=== PATIENT | male | born 1935 | race Caucasian/White ===

== ENCOUNTER 2017-04-08 22:18 | Inpatient (IN) | payer MEDICARE, OTHER, SELFPAY ==
[2017-04-08 22:19] VITALS: BP 133/74; PULSE 103; RESP 22; TEMP 35.8; O2SAT 94; BMI 24.5
--- NOTE | 2017-04-08 23:17 | RAD_ITS ---
STUDY: X-RAY CHEST REASON FOR EXAM: Male, 81 years old. Chronic shortness of breath, history of COPD TECHNIQUE: Single AP portable view of the chest. COMPARISON: 01/14/2017. 10/20/2016. FINDINGS: There are superimposed monitor leads. There is hyperinflation of the lungs consistent with chronic obstructive lung disease (COPD). There is no focal parenchymal abnormality. There is no demonstrated pleural abnormality. Normal size heart. Normal mediastinum and kris. Normal visualized pulmonary arteries. There is atherosclerotic calcification of the aortic arch with tortuosity. Obscured thoracic spine. There is degenerative osteoarthritis of the bilateral shoulders. There is no demonstrated abnormality of the visualized soft tissue structures of the upper abdomen. RAD/Chest 1 View (Portable) IMPRESSION: COPD. No acute cardiopulmonary disease. No significant interval change. Electronically Signed: Diane Lee MD at 0:47 EST , Service support ,
[2017-04-08] MEDS: Ipratropium/Albuterol Sulfate 3 ML AMPUL.NEB INHALATION (23:29)
[2017-04-08 23:30] VITALS: PULSE 84; RESP 24
[2017-04-08] MEDS: Albuterol 2.5 MG/3 ML VIAL.NEB. INHALATION ×2 (23:30)
[2017-04-08 23:38] VITALS: O2SAT 93
[2017-04-08] MEDS: MethylPREDNISolone 125 MG/2 ML Vial IV (23:50)
[2017-04-08 23:54] LABS: Absolute Lymphocyte Count 0.93 X10^3/ul (0.83-4.51); Absolute Neutrophil Count 4.3 X10^3/uL (2.0-7.7); Basophil# 0.04 X10^3/uL; Basophil% 0.6 % (0-1); Eosinophil# 0.73 X10^3/uL; Eosinophils% 10.3 % (0-5); Hematocrit 40.6 % (40-54); Hemoglobin 13.1 g/dl (13.0-16.5); Lymphocyte # 0.93 X10^3/ul (4.0); Lymphocyte % 13.2 % (19-41); Mean Corp Hgb Conc 32.3 g/gl (32-36); Mean Corpuscular Hgb 29.3 pg (27.0-32.0); Mean Corpuscular Volume 90.8 fL (80-94); Mean Platelet Vol. 9.2 fl (6.2-12.0); Monocyte# 0.94 X10^3/uL; Monocyte% 13.3 % (0-10); Neutrophil # 4.32 X10^3/uL (2.7-7.7); Neutrophil % 61.2 % (47-70); POSITIVE COUNT NO; POSITIVE DIFFERENTIAL NO; POSITIVE MORPHOLOGY NO; Platelet Count 149 K/mm3 (150-450); RBC Distribution Width CV 14.9 % (11.6-14.6); RBC Distribution Width SD 49.6 fl (35.1-43.9); Red Blood Count 4.47 M/mm3 (4.6-6.2); White Blood Count 7.1 K/mm3 (4.4-11.0)
[2017-04-09] VITALS (14 sets, daily range): BP systolic 145–159; BP diastolic 75–99; PULSE 78–113; RESP 16–24; TEMP 36.4–36.8; O2SAT 93–98; BMI 25.0
[2017-04-09 00:08] LABS: Anion Gap 6 (5-15); BUN 19 mg/dL (7-18); BUN/Creat Ratio 14.7 RATIO (10-20); Calcium,Total 9.1 mg/dL (8.5-10.1); Chloride 105 mmol/L (98-107); Creatinine, Serum 1.29 mg/dL (0.70-1.30); EST Glomerular Filtration Rate 57 mL/min (>60); Est Glom Filt Rate - Afr Amer 69 mL/min (>60); Glucose 152 mg/dL (74-106); Potassium 4.6 mmol/L (3.5-5.1); Sodium Level 140 mmol/L (136-145)
--- NOTE | 2017-04-09 00:16 | ED.DCSUM_ITS ---
- ER Visit Summary Date of Service: 04/09/17 Chief Complaint: Shortness of breath History of Present Illness: The patient is a 81 M with a history of COPD on home oxygen normally on 2 L. He states he has been more short of breath today. He complains of increased dyspnea on exertion increased cough which is nonproductive. He denies sputum. He notes some mild congestion but really no significant URI-like illness. He denies fever rhinorrhea sore throat. He denies vomiting or diarrhea. He denies any pain. Physical Examination: Respiratory rate 22 heart rate 103 pulse ox 94% on 2 L Heart is regular rhythm tachycardia Patient speaking in short 4-5 word sentences he is tachypneic with increased work of breathing he has diminished air exchange and diffuse inspiratory and expiratory wheezing Abdomen soft Test Results: CBC BMP unremarkable. Chest x-ray shows no acute process no focal infiltrate. Emergency Department Course and Treatment: Patient was given IV Solu-Medrol and albuterol and Atrovent aerosols. On reevaluation he is improved but still become short of breath with speaking and even light activity. He desaturated just moving in bed down to about 90%. I do feel he will require admission for COPD exacerbation. Treatment Plan: [] Disposition: Admit Impression: COPD exacerbation This note was generated with [employer] dictation software. It may contain incorrect words, spelling, and punctuation that were not noted in review of the chart prior to signing ED Disposition - Plan for ED Patient: Chief Complaint: Shortness of Breath Referrals: Neha Link MD [Primary Care Provider] -
--- NOTE | 2017-04-09 00:39 | NURSING ---
CALLED [facility] TO SEE IF [facility] HAD ANY OPEN BEDS, NO ONE ANSWERED, LEFT VOICEMAIL
--- NOTE | 2017-04-09 01:01 | HP.PCM_ITS ---
Problem List (1) COPD exacerbation Status: Acute (2) Anxiety disorder Status: Chronic Qualifiers: Anxiety disorder type: unspecified anxiety disorder Qualified Code(s): F41.9 - Anxiety disorder, unspecified (3) BPH (benign prostatic hypertrophy) Status: Chronic Qualifiers: Lower urinary tract symptom presence: unspecified whether lower urinary tract symptoms present Qualified Code(s): N40.0 - Benign prostatic hyperplasia without lower urinary tract symptoms (4) COPD (chronic obstructive pulmonary disease) Status: Chronic Qualifiers: COPD type: unspecified COPD Qualified Code(s): J44.9 - Chronic obstructive pulmonary disease, unspecified (5) Chronic respiratory failure with hypoxia Status: Chronic Comment: 2L NC baseline home usage. (6) Hypertension Status: Chronic Qualifiers: Hypertension type: essential hypertension Qualified Code(s): I10 - Essential (primary) hypertension (7) SOB (shortness of breath) Status: Chronic History of Present Illness Date of Admission: 04/09/17 Chief Complaint: COPD exacerbation The patient is a 81 year old male w/ h/o COPD, chronic respiratory failure, BPH and HTN admitted for COPD exacerbation. He noted worsening cough 10 days ago. The intensity and frequency of cough have increased over the past few days. His SOB is so severe that it interfered with his ADLs. He is unable to get around without severe SOB. He denies any fever. No sick contact. He went to the ED for further workup. Past Medical History Past Medical History (Chronic Problems): Chronic Problems COPD (chronic obstructive pulmonary disease) (Chronic) SOB (shortness of breath) (Chronic) Chronic respiratory failure with hypoxia (Chronic) 2L NC baseline home usage. BPH (benign prostatic hypertrophy) (Chronic) Hypertension (Chronic) Anxiety disorder (Chronic) Allergies No Known Allergies Allergy (Verified 04/08/17 22:22) Home Medications: Ambulatory Orders Medication Instructions Recorded Albuterol Aerosols [Ventolin 2.5 mg INHALATION Q6H PRN PRN 10/20/16 Aerosols] Albuterol IH (ProAir) [Proair Hfa] 2 puff INHALATION Q4H PRN PRN 10/20/16 Aspirin [Aspirin EC] 81 mg PO DAILY 10/20/16 Budesonide Aerosol [Pulmicort 1 mg INHALATION Q12H 10/20/16 Respules] BusPIRone [Buspar] 5 mg PO TID 10/20/16 Dorzolamide HCl [Trusopt] 1 drp OP TID 10/20/16 Finasteride [Proscar] 5 mg PO DAILY 10/20/16 Lactose-Reduced Food [Ensure Plus] 237 ml PO DAILY 10/20/16 Latanoprost 1 drp OP QHS 10/20/16 Metoprolol Tartrate 25 mg PO BID 10/20/16 Mirtazapine 7.5 mg PO QHS 10/20/16 Montelukast [Singulair] 10 mg PO DAILY 10/20/16 Omeprazole 20 mg PO DAILY 10/20/16 Tamsulosin HCl [Flomax] 0.4 mg PO DAILY 10/20/16 Tiotropium [place] [Spiriva 18 MCG] 2 puff INHALATION DAILY 10/20/16 Trazodone HCl [Desyrel] 50 mg PO QHS 10/20/16 Venlafaxine HCl [Effexor Xr] 225 mg PO DAILY 10/20/16 Guaifenesin [Mucinex] 400 mg PO Q4H PRN PRN 01/15/17 Lactose-Reduced Food [Ensure Plus] 237 ml PO BID 01/15/17 food supplement, lactose-reduced ea PO 02/17/17 oral liquid theophylline ER 300 mg 300 mg PO DAILY tab 02/17/17 tablet,extended release,12 hr Cholecalciferol (VIT D3) [Vitamin 4,000 unit PO DAILY 04/09/17 D] Docusate Sodium [Colace] 100 mg PO BID 04/09/17 Surgical History: appendectomy, - - cataracts, 6-7 years ago Psychiatric History: Anxiety, Depression Smoking Status: Unknown if ever smoked - *Family History Maternal History Items: No pertinent history - Mother at 101, - - mother lived to age 101 Paternal History Items: Stroke - CVA in older years, at age 90, No pertinent history , - - father lived to be 90 Offspring History Items: No pertinent history Review of Systems Constitutional: Denies: Chills, Fever, Weight Change HEENT: Denies: Head Aches, Sinus Congestion, Sinus Drainage Cardiovascular: Denies: Chest Pain, Palpitations Respiratory: Reports: Cough, Shortness of breath at rest, Shortness of breath upon exertion, Sputum production, Wheezing Gastrointestinal: Denies: Abdominal Pain, Nausea, Vomiting Genitourinary: Denies: Dysuria Musculoskeletal: Denies: Joint Pain, Joint Tenderness Skin: Denies: Rash, Wounds Neurological: Denies: Numbness, Tingling, Focal weakness Psychiatric: Denies: Anxiety, Depression, Homicidal Ideations, Suicidal Ideations Hematologic/ Lymphatic: Denies: Easy Bruising, Easy Bleeding VTE Information - Inpt Only VTE Present on Admission: No VTE Mechan Device Prophylaxis: SCD's VTE Pharm Prophylaxis ordered?: Yes - Physical Exam General: Alert, Oriented x3, Cooperative HEENT: Atraumatic, PERRLA, EOMI, Normocephalic Neck: Supple, No JVD, Negative Carotid Bruits Lungs: Short of Breath, Tachypneic, Wheezes Cardiovascular: Regular rate, No murmurs Abdomen: Bowel Sounds Present, Soft, Non Tender Extremities: No edema, Capillary Refill Less than 3 Seconds Skin: No rashes, No breakdown Musculoskeletal: No Tenderness to Palpation of Joints or Extremities Neurological: Cranial nerves II-XII grossly intact Psych/Mental Status: Normal Affect, Appropriate Vital Signs Temp Pulse Resp BP Pulse Ox 96.4 F L 78 20 H 154/81 H 93 04/08/17 22:19 04/09/17 00:36 04/09/17 00:36 04/09/17 00:36 04/09/17 00:36 Oxygen Flow Rate 2 Oxygen Delivery Method Nasal Cannula Weight: 60.781 kg Body Mass Index (BMI) 24.5 Laboratory Tests Past 24 Hrs 04/08/17 04/08/17 23:30 23:30 WBC 7.1 RBC 4.47 L Hgb 13.1 Hct 40.6 MCV 90.8 MCH 29.3 MCHC 32.3 RDW 14.9 H RDW Differential 49.6 H Plt Count 149 L MPV 9.2 Immature Gran % (Auto) 1.400 H Neut % (Auto) 61.2 Lymph % (Auto) 13.2 L [place] % (Auto) 13.3 H Eos % (Auto) 10.3 H Baso % (Auto) 0.6 Absolute Neuts (auto) 4.3 Absolute Lymphs (auto) 0.93 Total Counted Not Reportable Sodium 140 Potassium 4.6 Chloride 105 Carbon Dioxide 29.0 Anion Gap 6 BUN 19 H Creatinine 1.29 Estim Creat Clear Calc 34.10 Est GFR (MDRD) Af Amer 69 Est GFR (MDRD) Non-Af 57 L BUN/Creatinine Ratio 14.7 Glucose 152 H Calcium 9.1 Assessment/Plan 81 year old male w/ h/o COPD, chronic respiratory failure, BPH and HTN admitted for COPD exacerbation. 1) COPD exacerbation: Likely viral causing exacerbation. Chest xray negative. Will start oxygen, steroid, bronchodilators, and levaquin. Probably can stop antibiotic if cultures negative. Cultures pending. 2) HTN: Resume home meds. Monitor. 3) BPH: Resume home meds. Monitor. 4) Prophylaxis: Heparin.
[2017-04-09] MEDS: Ipratropium/Albuterol Sulfate 3 ML AMPUL.NEB INHALATION ×6 (03:40→22:26)
[2017-04-09] MEDS: 0.9% Normal Saline 1,000 ML 100 ML IV ×2 (04:47→15:01)
[2017-04-09] MEDS: LORazepam 0.5 MG Tablet PO (05:05)
--- NOTE | 2017-04-09 05:55 | RAD_ITS ---
STUDY: X-RAY CHEST REASON FOR EXAM: Male, 81 years old. Shortness of breath TECHNIQUE: PA and lateral views of the chest. COMPARISON: 2017 chest x-ray FINDINGS: The lungs are hyperinflated and somewhat hyperlucent without evidence of focal consolidation or change since prior study. There is no demonstrated pleural abnormality. Normal size heart. Normal mediastinum and kris. Normal visualized pulmonary arteries. Normal visualized aortic arch and descending thoracic aorta. There is mild dextroscoliosis. Normal visualized ribs, clavicles, and shoulders. There are visualized multiple distended loops of bowel within the upper abdomen. RAD/Chest PA and Lateral IMPRESSION: Stable chest no evidence of acute focal infiltrate could consider chronic obstructive pulmonary disease. Partial Visualization of multiple distended loops of small bowel in the upper abdomen recommend correlation with abdominal symptoms. Electronically Signed: Patricia Melgar MD at 10:43 EST Tel , Service support ,
[2017-04-09 06:29] LABS: ALB/GLOB Ratio 0.9 RATIO (0.9-2.4); AST(SGOT) 19 U/L (15-37); Alanine Aminotransfer ALT/SGPT 29 U/L (16-61); Albumin, Serum 3.4 g/dL (3.2-5.0); Alkaline Phosphatase 52 U/L (45-117); Anion Gap 12 (5-15); BUN 19 mg/dL (7-18); BUN/Creat Ratio 14.2 RATIO (10-20); Calcium,Total 8.8 mg/dL (8.5-10.1); Chloride 102 mmol/L (98-107); Creatinine, Serum 1.34 mg/dL (0.70-1.30); EST Glomerular Filtration Rate 54 mL/min (>60); Est Glom Filt Rate - Afr Amer 66 mL/min (>60); Estimated Creatinine Clearance 32.82 ml/min; Globulin 3.6 g/dL (2.2-4.2); Glucose 248 mg/dL (74-106); Potassium 4.5 mmol/L (3.5-5.1); Sodium Level 138 mmol/L (136-145)
[2017-04-09 06:34] LABS: Absolute Lymphocyte Count 0.37 X10^3/ul (0.83-4.51); Absolute Neutrophil Count 6.6 X10^3/uL (2.0-7.7); Basophil# 0.03 X10^3/uL; Basophil% 0.4 % (0-1); Eosinophil# 0.05 X10^3/uL; Eosinophils% 0.7 % (0-5); Hematocrit 39.5 % (40-54); Hemoglobin 12.8 g/dl (13.0-16.5); Lymphocyte # 0.37 X10^3/ul (4.0); Mean Corp Hgb Conc 32.4 g/gl (32-36); Mean Corpuscular Hgb 29.3 pg (27.0-32.0); Mean Corpuscular Volume 90.4 fL (80-94); Mean Platelet Vol. 9.7 fl (6.2-12.0); Monocyte# 0.14 X10^3/uL; Monocyte% 1.9 % (0-10); Neutrophil # 6.63 X10^3/uL (2.7-7.7); Neutrophil % 89.4 % (47-70); Platelet Count 157 K/mm3 (150-450); RBC Distribution Width CV 14.9 % (11.6-14.6); RBC Distribution Width SD 48.4 fl (35.1-43.9); Red Blood Count 4.37 M/mm3 (4.6-6.2); White Blood Count 7.4 K/mm3 (4.4-11.0)
[2017-04-09 06:38] LABS: Differential Indicated SCAN CRITERIA MET; POSITIVE COUNT YES; POSITIVE DIFFERENTIAL YES; POSITIVE MORPHOLOGY YES
[2017-04-09] MEDS: Budesonide Respules 0.5 MG/2 ML AMPUL.NEB. INHALATION ×2 (07:07→18:38)
--- NOTE | 2017-04-09 08:32 | PCM.PN.HOSP ---
Subjective: The patient is an 81 y/o M w/ PMHx: BPH, Anxiety, BPH, Chronic COPD w/ Chronic Hypoxic Respiratory Failure noted to be advanced stage, non-compliant with therapies per prior report with recent attempted PFTs ~1-2 weeks prior per his report with inability to perform secondary to severity of appearance at that time with ongoing dyspnea, wheezing, progressively worsening over the last 1-2 days. CXR w/ chronic changes, CBC on admission w/ WBC 7.1 without marked L shift. Admitted to CT, maintained on home oxygen therapy, ATC duonebs, PRN albuterol, IV methylprednisolone with prednisone transition once appropriate, HOB, IS parameters, IV Levaquin x 3 day regimen initiated upon admission. Continue home bakari-dur regimen. Given clinical improvement, deferred Pulmonary evaluation/consult, but if worsens, Dr. Latham aware of patient, follows w/ Dr. Shaffer outpatient. Influenza rapid negative. Bld Cx pending per ED. Patient with no acute events since admission per self and per nursing report. He does state that he feels markedly improved since initial presentation to the emergency room but still short of breath with any exertion. He notes that he had a pulmonary function testing assessment approximately 1-2 wks prior and was unable to complete this secondary to the severity of his wheezing, coughing and dyspnea, but was not evaluated at that time with progressive worsening status. Patient denies fevers, chills, nausea, emesis, abdominal pain, chest pain. Objective: Physical Examination: General: awake, alert, oriented x 3 and cooperative, seated upright in bed in no apparent distress. Skin: normal color, turgor, no icterus, cyanosis. HEENT: AT/NC, EOMI, PERRLA, mildly dry MM. Lungs: Diminished BS, > bases, coarse, rhonchorous, diffuse expiratory coarse wheezing. Heart: Regular rate and rhythm; no gallop, rub audible. Abdomen: soft, this habitus, NTTP, ND, normal BS. Extremities: no cyanosis, clubbing, or edema. Neurological: patient awake, alert, oriented x 3; cognitive function intact; pupils equally reactive to light and accomodation; cranial nerves II-XII grossly normal, moving all 4 extremities, no focal deficits, strength severely globally decreased secondary to acute presentation. Psychiatric: affect appears fatigued, no acute evidence of depressive or anxiety feelings. Vitals/I&O's: Vital Signs Temp Pulse Resp BP Pulse Ox 98.2 F 84 20 H 154/77 H 97 04/09/17 01:39 04/09/17 07:07 04/09/17 07:07 04/09/17 01:39 04/09/17 07:07 Oxygen Flow Rate 2 Oxygen Delivery Method Nasal Cannula Weight: 136 lb 7.458 oz Body Mass Index (BMI) 25.0 Intake and Output for Last 24 Hours 04/07/17 04/08/17 04/09/17 23:59 23:59 23:59 Intake Total 709 / 709 Output Total 400 / 400 Balance 309 / 309 Microbiology Past 72 Hours 04/09/17 03:50 Mucosa - Nose Influenza Types A,B Direct FA ([facility]) - Final Laboratory Results 04/09/17 05:25: WBC 7.4, RBC 4.37 L, Hgb 12.8 L, Hct 39.5 L, MCV 90.4, MCH 29.3, MCHC 32.4, RDW 14.9 H, RDW Differential 48.4 H, Plt Count 157, MPV 9.7, Immature Gran % (Auto) 2.600 H, Neut % (Auto) 89.4 H, Lymph % (Auto) 5.0 L, [place] % (Auto) 1.9, Eos % (Auto) 0.7, Baso % (Auto) 0.4, Absolute Neuts (auto) 6.6, Absolute Lymphs (auto) 0.37 L, Total Counted Not Reportable, Differential Comment , Diff Path Review July04/09/17 05:25: Sodium 138, Potassium 4.5, Chloride 102, Carbon Dioxide 24.0, Anion Gap 12, BUN 19 H, Creatinine 1.34 H, Estim Creat Clear Calc 32.82, Est GFR (MDRD) Af Amer 66, Est GFR (MDRD) Non-Af 54 L, BUN/Creatinine Ratio 14.2, Glucose 248 H, Calcium 8.8, Total Bilirubin 0.50, AST 19, ALT 29, Alkaline Phosphatase 52, Total Protein 7.0, Albumin 3.4, Globulin 3.6, Albumin/Globulin Ratio 0.9 Current Medications Albuterol Sulfate (Ventolin Aerosols) 2.5 mg INHALATION Q2H PRN PRN PRN Reason: dyspnea, wheezing Albuterol/Ipratropium (Duoneb) 3 ml INHALATION Q4H.RT [facility] Last Admin: 04/09/17 07:07 Dose: 3 ml Aspirin (Ecotrin) 81 mg PO DAILY [facility] Budesonide (Pulmicort Aerosol) 0.5 mg INHALATION Q12H.RT [facility] Last Admin: 04/09/17 07:07 Dose: 0.5 mg Buspirone HCl (Buspar) 5 mg PO TID [facility] Last Admin: 04/09/17 05:45 Dose: 5 mg Finasteride (Proscar) 5 mg PO DAILY [facility] Guaifenesin (Robitussin) 20 ml PO Q4H PRN PRN PRN Reason: COUGH Heparin Sodium (Porcine) (Heparin Na) 5,000 unit SC Q8 [facility] Last Admin: 04/09/17 05:49 Dose: 5,000 u Sodium Chloride () 1,000 mls @ 100 mls/hr IV .Q10H [facility] Last Admin: 04/09/17 04:47 Dose: 100 mls/hr Sodium Chloride () 250 mls @ 15 mls/hr IV .[id number] PRN PRN Reason: SALINE FLUSH Levofloxacin (Levaquin) 500 mg PO DAILY@0600 [facility] Stop: 04/11/17 06:01 Methylprednisolone (Solu-Medrol) 40 mg IV Q8 [facility] Last Admin: 04/09/17 05:46 Dose: 40 mg Metoprolol Tartrate (Lopressor (Beta Nick)) 25 mg PO BID [facility] Mirtazapine (Remeron) 7.5 mg PO QHS [facility] Montelukast Sodium (Singulair) 10 mg PO DAILY [facility] Pantoprazole Sodium (Protonix) 40 mg PO DAILY [facility] Sodium Chloride () 5 - 30 ml IV UD PRN PRN Reason: SALINE FLUSH Tamsulosin HCl (Flomax) 0.4 mg PO DAILY [facility] Theophylline (Bakari-Dur) 300 mg PO DAILY [facility] Trazodone HCl (Desyrel) 50 mg PO QHS [facility] Venlafaxine HCl (Effexor Xr) 225 mg PO DAILY [facility] Assessment/Plan The patient is an 81 y/o M w/ PMHx: BPH, Anxiety, BPH, Chronic COPD w/ Chronic Hypoxic Respiratory Failure noted to be advanced stage, non-compliant with therapies per prior report with recent attempted PFTs ~1-2 weeks prior per his report with inability to perform secondary to severity of appearance at that time with ongoing dyspnea, wheezing, progressively worsening over the last 1-2 days. (1) Acute on chronic COPD exacerbation w/ Chronic Hypoxic Respiratory Failure: CXR w/ chronic changes, CBC on admission w/ WBC 7.1 without marked L shift. Admitted to CT, maintained on home oxygen therapy, ATC duonebs, PRN albuterol, IV methylprednisolone with prednisone transition once appropriate, HOB, IS parameters, IV Levaquin x 3 day regimen initiated upon admission. Continue home bakari-dur regimen. Given clinical improvement, deferred Pulmonary evaluation/consult, but if worsens, Dr. Latham aware of patient, follows w/ Dr. Shaffer outpatient. Influenza rapid negative. Bld Cx pending per ED. (2) Hypertension: Continue home regimen including metoprolol, although odd choice given underlying severe COPD, consider changing agents, PRN hydralazine. (3) Anxiety and Depression: Maintain on home regimen buspar, remeron, trazodone. (4) BPH: Maintain on home flomax regimen. (5) Chronic Severe Protein-Calorie Malnutrition: Evidenced per habitus, muscle and fat loss secondary, nutrition consulted. (6) Hyperglycemia: Admission BS elevated, assessment prior for DM, secondary to steroid usage. (7) DVT Prophylaxis: SCDs, heparin. Code Visit Billing: Admitted same day, no billing, CODE [id number]
--- NOTE | 2017-04-09 08:42 | PN_ITS ---
Subjective: The patient is an 81 y/o M w/ PMHx: BPH, Anxiety, BPH, Chronic COPD w/ Chronic Hypoxic Respiratory Failure noted to be advanced stage, non-compliant with therapies per prior report with recent attempted PFTs ~1-2 weeks prior per his report with inability to perform secondary to severity of appearance at that time with ongoing dyspnea, wheezing, progressively worsening over the last 1-2 days. CXR w/ chronic changes, CBC on admission w/ WBC 7.1 without marked L shift. Admitted to NH, maintained on home oxygen therapy, ATC duonebs, PRN albuterol, IV methylprednisolone with prednisone transition once appropriate, HOB, IS parameters, IV Levaquin x 3 day regimen initiated upon admission. Continue home bakari-dur regimen. Given clinical improvement, deferred Pulmonary evaluation/consult, but if worsens, Dr. Latham aware of patient, follows w/ Dr. Shaffer outpatient. Influenza rapid negative. Bld Cx pending per ED. Patient with no acute events since admission per self and per nursing report. He does state that he feels markedly improved since initial presentation to the emergency room but still short of breath with any exertion. He notes that he had a pulmonary function testing assessment approximately 1-2 wks prior and was unable to complete this secondary to the severity of his wheezing, coughing and dyspnea, but was not evaluated at that time with progressive worsening status. Patient denies fevers, chills, nausea, emesis, abdominal pain, chest pain. Objective: Physical Examination: General: awake, alert, oriented x 3 and cooperative, seated upright in bed in no apparent distress. Skin: normal color, turgor, no icterus, cyanosis. HEENT: AT/NC, EOMI, PERRLA, mildly dry MM. Lungs: Diminished BS, > bases, coarse, rhonchorous, diffuse expiratory coarse wheezing. Heart: Regular rate and rhythm; no gallop, rub audible. Abdomen: soft, this habitus, NTTP, ND, normal BS. Extremities: no cyanosis, clubbing, or edema. Neurological: patient awake, alert, oriented x 3; cognitive function intact; pupils equally reactive to light and accomodation; cranial nerves II-XII grossly normal, moving all 4 extremities, no focal deficits, strength severely globally decreased secondary to acute presentation. Psychiatric: affect appears fatigued, no acute evidence of depressive or anxiety feelings. Vitals/I&O's: Vital Signs Temp Pulse Resp BP Pulse Ox 98.2 F 84 20 H 154/77 H 97 04/09/17 01:39 04/09/17 07:07 04/09/17 07:07 04/09/17 01:39 04/09/17 07:07 Oxygen Flow Rate 2 Oxygen Delivery Method Nasal Cannula Weight: 136 lb 7.458 oz Body Mass Index (BMI) 25.0 Intake and Output for Last 24 Hours 04/07/17 04/08/17 04/09/17 23:59 23:59 23:59 Intake Total 709 / 709 Output Total 400 / 400 Balance 309 / 309 Microbiology Past 72 Hours 04/09/17 03:50 Mucosa - Nose Influenza Types A,B Direct FA ([facility]) - Final Laboratory Results 04/09/17 05:25: WBC 7.4, RBC 4.37 L, Hgb 12.8 L, Hct 39.5 L, MCV 90.4, MCH 29.3 , MCHC 32.4, RDW 14.9 H, RDW Differential 48.4 H, Plt Count 157, MPV 9.7, Immature Gran % (Auto) 2.600 H, Neut % (Auto) 89.4 H, Lymph % (Auto) 5.0 L, Becker % (Auto) 1.9, Eos % (Auto) 0.7, Baso % (Auto) 0.4, Absolute Neuts (auto) 6.6, Absolute Lymphs (auto) 0.37 L, Total Counted Not Reportable, Differential Comment , Diff Path Review July04/09/17 05:25: Sodium 138, Potassium 4.5, Chloride 102, Carbon Dioxide 24.0, Anion Gap 12, BUN 19 H, Creatinine 1.34 H, Estim Creat Clear Calc 32.82, Est GFR (MDRD) Af Amer 66, Est GFR (MDRD) Non-Af 54 L, BUN/Creatinine Ratio 14.2, Glucose 248 H, Calcium 8.8, Total Bilirubin 0.50, AST 19, ALT 29, Alkaline Phosphatase 52, Total Protein 7.0, Albumin 3.4, Globulin 3.6, Albumin/Globulin Ratio 0.9 Current Medications Albuterol Sulfate (Ventolin Aerosols) 2.5 mg INHALATION Q2H PRN PRN PRN Reason: dyspnea, wheezing Albuterol/Ipratropium (Duoneb) 3 ml INHALATION Q4H.RT [facility] Last Admin: 04/09/17 07:07 Dose: 3 ml Aspirin (Ecotrin) 81 mg PO DAILY [facility] Budesonide (Pulmicort Aerosol) 0.5 mg INHALATION Q12H.RT [facility] Last Admin: 04/09/17 07:07 Dose: 0.5 mg Buspirone HCl (Buspar) 5 mg PO TID [facility] Last Admin: 04/09/17 05:45 Dose: 5 mg Finasteride (Proscar) 5 mg PO DAILY [facility] Guaifenesin (Robitussin) 20 ml PO Q4H PRN PRN PRN Reason: COUGH Heparin Sodium (Porcine) (Heparin Na) 5,000 unit SC Q8 [facility] Last Admin: 04/09/17 05:49 Dose: 5,000 u Sodium Chloride () 1,000 mls @ 100 mls/hr IV .Q10H [facility] Last Admin: 04/09/17 04:47 Dose: 100 mls/hr Sodium Chloride () 250 mls @ 15 mls/hr IV .[id number] PRN PRN Reason: SALINE FLUSH Levofloxacin (Levaquin) 500 mg PO DAILY@0600 [facility] Stop: 04/11/17 06:01 Methylprednisolone (Solu-Medrol) 40 mg IV Q8 [facility] Last Admin: 04/09/17 05:46 Dose: 40 mg Metoprolol Tartrate (Lopressor (Beta Nick)) 25 mg PO BID [facility] Mirtazapine (Remeron) 7.5 mg PO QHS [facility] Montelukast Sodium (Singulair) 10 mg PO DAILY [facility] Pantoprazole Sodium (Protonix) 40 mg PO DAILY [facility] Sodium Chloride () 5 - 30 ml IV UD PRN PRN Reason: SALINE FLUSH Tamsulosin HCl (Flomax) 0.4 mg PO DAILY [facility] Theophylline (Bakari-Dur) 300 mg PO DAILY [facility] Trazodone HCl (Desyrel) 50 mg PO QHS [facility] Venlafaxine HCl (Effexor Xr) 225 mg PO DAILY [facility] Assessment/Plan The patient is an 81 y/o M w/ PMHx: BPH, Anxiety, BPH, Chronic COPD w/ Chronic Hypoxic Respiratory Failure noted to be advanced stage, non-compliant with therapies per prior report with recent attempted PFTs ~1-2 weeks prior per his report with inability to perform secondary to severity of appearance at that time with ongoing dyspnea, wheezing, progressively worsening over the last 1-2 days. (1) Acute on chronic COPD exacerbation w/ Chronic Hypoxic Respiratory Failure: CXR w/ chronic changes, CBC on admission w/ WBC 7.1 without marked L shift. Admitted to NH, maintained on home oxygen therapy, ATC duonebs, PRN albuterol, IV methylprednisolone with prednisone transition once appropriate, HOB, IS parameters, IV Levaquin x 3 day regimen initiated upon admission. Continue home bakari-dur regimen. Given clinical improvement, deferred Pulmonary evaluation/ consult, but if worsens, Dr. Latham aware of patient, follows w/ Dr. Shaffer outpatient. Influenza rapid negative. Bld Cx pending per ED. (2) Hypertension: Continue home regimen including metoprolol, although odd choice given underlying severe COPD, consider changing agents, PRN hydralazine. (3) Anxiety and Depression: Maintain on home regimen buspar, remeron, trazodone. (4) BPH: Maintain on home flomax regimen. (5) Chronic Severe Protein-Calorie Malnutrition: Evidenced per habitus, muscle and fat loss secondary, nutrition consulted. (6) Hyperglycemia: Admission BS elevated, assessment prior for DM, secondary to steroid usage. (7) DVT Prophylaxis: SCDs, heparin. Code Visit Billing: Admitted same day, no billing, CODE [id number]
[2017-04-09] MEDS: 0.9% NaCl Peripheral Flush Adult/Peds IV (08:44)
[2017-04-09] MEDS: Montelukast 10 MG Tablet PO (09:22)
[2017-04-09] MEDS: Aspirin E.C. 81 MG Tablet PO (09:22)
[2017-04-09] MEDS: Tamsulosin HCl 0.4 MG Capsule PO (09:22)
[2017-04-09] MEDS: Finasteride 5 MG Tablet PO (09:22)
[2017-04-09] MEDS: Venlafaxine XR 75 MG Capsule 225 MG PO (09:24)
[2017-04-09] MEDS: Metoprolol Tartrate 25 MG Tablet PO ×2 (09:24→21:46)
[2017-04-09] MEDS: Pantoprazole Sodium 40 MG Tablet PO (09:25)
[2017-04-09] MEDS: guaiFENesin 10 ML UDC (200MG/10ML) 20 ML PO (17:30)
[2017-04-09] MEDS: traZODone 50 MG Tablet PO (21:38)
[2017-04-09] MEDS: Mirtazapine 15 MG Tablet 7.5 MG PO (21:44)
[2017-04-10] VITALS (14 sets, daily range): BP systolic 132–149; BP diastolic 66–80; PULSE 88–108; RESP 18–26; TEMP 36.5–37.1; O2SAT 95–98
[2017-04-10] MEDS: 0.9% Normal Saline 1,000 ML 100 ML IV ×3 (01:05→22:13)
[2017-04-10] MEDS: Ipratropium/Albuterol Sulfate 3 ML AMPUL.NEB INHALATION ×6 (03:26→22:25)
[2017-04-10] MEDS: levoFLOXacin 500 MG Tablet PO (06:02)
[2017-04-10] MEDS: Budesonide Respules 0.5 MG/2 ML AMPUL.NEB. INHALATION ×2 (07:47→18:53)
[2017-04-10] MEDS: Tamsulosin HCl 0.4 MG Capsule PO (08:22)
[2017-04-10] MEDS: Metoprolol Tartrate 25 MG Tablet PO ×2 (08:22→22:14)
[2017-04-10] MEDS: Venlafaxine XR 75 MG Capsule 225 MG PO (08:22)
[2017-04-10] MEDS: Finasteride 5 MG Tablet PO (08:23)
[2017-04-10] MEDS: Aspirin E.C. 81 MG Tablet PO (08:23)
[2017-04-10] MEDS: Pantoprazole Sodium 40 MG Tablet PO (08:23)
[2017-04-10] MEDS: Montelukast 10 MG Tablet PO (08:23)
[2017-04-10] MEDS: Albuterol 2.5 MG/3 ML VIAL.NEB. INHALATION ×2 (09:43→13:23)
[2017-04-10 15:12] LABS: Pathologist Review Reviewed
--- NOTE | 2017-04-10 16:38 | PCM.PN.HOSP ---
Subjective: Patient was seen and examined. Still wheezing, has received multiple breathing treatment, denies any fever or chills. Objective: Physical Examination: General: awake, alert, oriented x 3 and cooperative, up in bed, receiving breathing treatment Skin: normal color, turgor, no icterus, cyanosis. HEENT: Dry oral mucosa Lungs: Air entry bilaterally, diffuse, expiratory coarse wheezes Heart: Regular rate and rhythm; no gallop, rub audible. Abdomen: soft, t nontender, no abnormalities palpated, bowel sounds present and normal Extremities: no cyanosis, clubbing, or edema. Neurological: Grossly intact Psychiatric: Normal Vitals/I&O's: Vital Signs Temp Pulse Resp BP Pulse Ox 97.9 F 103 H 20 H 132/66 H 95 04/10/17 14:49 04/10/17 15:28 04/10/17 15:28 04/10/17 14:49 04/10/17 15:28 Oxygen Flow Rate 3 Oxygen Delivery Method Nasal Cannula Weight: 61.9 kg Body Mass Index (BMI) 25.0 Intake and Output for Last 24 Hours 04/08/17 04/09/17 04/10/17 23:59 23:59 23:59 Intake Total 1838 / 1838 2390 / 2390 Output Total 400 / 400 2670 / 2670 Balance 1438 / 1438 -280 / -280 Microbiology Past 72 Hours 04/09/17 10:35 Urine, Clean Catch Streptococcus pneumoniae Antigen (M - Final 04/09/17 10:35 Urine, Clean Catch Legionella Antigen - Final 04/09/17 03:50 Mucosa - Nose Influenza Types A,B Direct FA ([facility]) - Final Laboratory Results 04/09/17 05:25: Diff Path Review Reviewed Current Medications Albuterol Sulfate (Ventolin Aerosols) 2.5 mg INHALATION Q2H PRN PRN PRN Reason: dyspnea, wheezing Last Admin: 04/10/17 13:23 Dose: 2.5 mg Albuterol/Ipratropium (Duoneb) 3 ml INHALATION Q4H.RT [facility] Last Admin: 04/10/17 15:28 Dose: 3 ml Aspirin (Ecotrin) 81 mg PO DAILY [facility] Last Admin: 04/10/17 08:23 Dose: 81 mg Budesonide (Pulmicort Aerosol) 0.5 mg INHALATION Q12H.RT [facility] Last Admin: 04/10/17 07:47 Dose: 0.5 mg Buspirone HCl (Buspar) 5 mg PO TID [facility] Last Admin: 04/10/17 14:48 Dose: 5 mg Finasteride (Proscar) 5 mg PO DAILY [facility] Last Admin: 04/10/17 08:23 Dose: 5 mg Guaifenesin (Robitussin) 20 ml PO Q4H PRN PRN PRN Reason: COUGH Last Admin: 04/09/17 17:30 Dose: 20 ml Heparin Sodium (Porcine) (Heparin Na) 5,000 unit SC BID [facility] Last Admin: 04/10/17 08:23 Dose: 5,000 u Sodium Chloride () 1,000 mls @ 100 mls/hr IV .Q10H [facility] Last Admin: 04/10/17 11:17 Dose: 100 mls/hr Sodium Chloride () 250 mls @ 15 mls/hr IV .[id number] PRN PRN Reason: SALINE FLUSH Levofloxacin (Levaquin) 500 mg PO DAILY@0600 [facility] Stop: 04/11/17 06:01 Last Admin: 04/10/17 06:02 Dose: 500 mg Methylprednisolone (Solu-Medrol) 40 mg IV Q8 [facility] Last Admin: 04/10/17 14:48 Dose: 40 mg Metoprolol Tartrate (Lopressor (Beta Nick)) 25 mg PO BID [facility] Last Admin: 04/10/17 08:22 Dose: 25 mg Mirtazapine (Remeron) 7.5 mg PO QHS [facility] Last Admin: 04/09/17 21:44 Dose: 7.5 mg Montelukast Sodium (Singulair) 10 mg PO DAILY [facility] Last Admin: 04/10/17 08:23 Dose: 10 mg Nutritional Formula (Lactose Free) (Ensure Enlive) 120 ml PO 4X/DAY [facility] Last Admin: 04/10/17 14:48 Dose: 120 ml Pantoprazole Sodium (Protonix) 40 mg PO DAILY [facility] Last Admin: 04/10/17 08:23 Dose: 40 mg Sodium Chloride () 5 - 30 ml IV UD PRN PRN Reason: SALINE FLUSH Last Admin: 04/09/17 08:44 Dose: 10 ml Tamsulosin HCl (Flomax) 0.4 mg PO DAILY [facility] Last Admin: 02/05/18 08:22 Dose: 0.4 mg Theophylline (Bakari-24) 300 mg PO DAILY [facility] Last Admin: 04/10/17 08:23 Dose: 300 mg Trazodone HCl (Desyrel) 50 mg PO QHS [facility] Last Admin: 04/09/17 21:38 Dose: 50 mg Venlafaxine HCl (Effexor Xr) 225 mg PO DAILY [facility] Last Admin: 04/10/17 08:22 Dose: 225 mg Assessment/Plan 81 y/o male with PMHx of COPD with chronic Hypoxic Respiratory Failure, on 2 L home oxygen, admitted with ongoing dyspnea, wheezing, progressively worsening over the last 1-2 days. 1. Acute COPD exacerbation in a patient with chronic Hypoxic Respiratory Failure secondary to COPD, unclear etiology for exacerbation, influenza screen is negative, will continue with breathing treatments, oxygen therapy, IV Solu-Medrol, levaquin(for total of 5 days),continue to monitor, would consult pulmonary if patient continues to worsen, will need to follow-up with pulmonary in the outpatient 2. Hypertension, controlled, continue on metoprolol, continue to monitor blood pressures closely 3. Anxiety and Depression, on buspar, remeron, trazodone. 4. BPH, on flomax 5. Chronic Severe Protein-Calorie Malnutrition, nutrition consulted. 6. Hyperglycemia, likely secondary to steroids, will check HbA1c 7. DVT Prophylaxis with SCDs, heparin. Code Visit Inpatient E&M: 25649 Subs Hosp L2
--- NOTE | 2017-04-10 16:47 | PN_ITS ---
Subjective: Patient was seen and examined. Still wheezing, has received multiple breathing treatment, denies any fever or chills. Objective: Physical Examination: General: awake, alert, oriented x 3 and cooperative, up in bed, receiving breathing treatment Skin: normal color, turgor, no icterus, cyanosis. HEENT: Dry oral mucosa Lungs: Air entry bilaterally, diffuse, expiratory coarse wheezes Heart: Regular rate and rhythm; no gallop, rub audible. Abdomen: soft, t nontender, no abnormalities palpated, bowel sounds present and normal Extremities: no cyanosis, clubbing, or edema. Neurological: Grossly intact Psychiatric: Normal Vitals/I&O's: Vital Signs Temp Pulse Resp BP Pulse Ox 97.9 F 103 H 20 H 132/66 H 95 04/10/17 14:49 04/10/17 15:28 04/10/17 15:28 04/10/17 14:49 04/10/17 15:28 Oxygen Flow Rate 3 Oxygen Delivery Method Nasal Cannula Weight: 61.9 kg Body Mass Index (BMI) 25.0 Intake and Output for Last 24 Hours 04/08/17 04/09/17 04/10/17 23:59 23:59 23:59 Intake Total 1838 / 1838 2390 / 2390 Output Total 400 / 400 2670 / 2670 Balance 1438 / 1438 -280 / -280 Microbiology Past 72 Hours 04/09/17 10:35 Urine, Clean Catch Streptococcus pneumoniae Antigen (M - Final 04/09/17 10:35 Urine, Clean Catch Legionella Antigen - Final 04/09/17 03:50 Mucosa - Nose Influenza Types A,B Direct FA ([facility]) - Final Laboratory Results 04/09/17 05:25: Diff Path Review Reviewed Current Medications Albuterol Sulfate (Ventolin Aerosols) 2.5 mg INHALATION Q2H PRN PRN PRN Reason: dyspnea, wheezing Last Admin: 04/10/17 13:23 Dose: 2.5 mg Albuterol/Ipratropium (Duoneb) 3 ml INHALATION Q4H.RT [facility] Last Admin: 04/10/17 15:28 Dose: 3 ml Aspirin (Ecotrin) 81 mg PO DAILY [facility] Last Admin: 04/10/17 08:23 Dose: 81 mg Budesonide (Pulmicort Aerosol) 0.5 mg INHALATION Q12H.RT [facility] Last Admin: 04/10/17 07:47 Dose: 0.5 mg Buspirone HCl (Buspar) 5 mg PO TID [facility] Last Admin: 04/10/17 14:48 Dose: 5 mg Finasteride (Proscar) 5 mg PO DAILY [facility] Last Admin: 04/10/17 08:23 Dose: 5 mg Guaifenesin (Robitussin) 20 ml PO Q4H PRN PRN PRN Reason: COUGH Last Admin: 04/09/17 17:30 Dose: 20 ml Heparin Sodium (Porcine) (Heparin Na) 5,000 unit SC BID [facility] Last Admin: 04/10/17 08:23 Dose: 5,000 u Sodium Chloride () 1,000 mls @ 100 mls/hr IV .Q10H [facility] Last Admin: 04/10/17 11:17 Dose: 100 mls/hr Sodium Chloride () 250 mls @ 15 mls/hr IV .[id number] PRN PRN Reason: SALINE FLUSH Levofloxacin (Levaquin) 500 mg PO DAILY@0600 [facility] Stop: 04/11/17 06:01 Last Admin: 04/10/17 06:02 Dose: 500 mg Methylprednisolone (Solu-Medrol) 40 mg IV Q8 [facility] Last Admin: 04/10/17 14:48 Dose: 40 mg Metoprolol Tartrate (Lopressor (Beta Nick)) 25 mg PO BID [facility] Last Admin: 04/10/17 08:22 Dose: 25 mg Mirtazapine (Remeron) 7.5 mg PO QHS [facility] Last Admin: 04/09/17 21:44 Dose: 7.5 mg Montelukast Sodium (Singulair) 10 mg PO DAILY [facility] Last Admin: 04/10/17 08:23 Dose: 10 mg Nutritional Formula (Lactose Free) (Ensure Enlive) 120 ml PO 4X/DAY [facility] Last Admin: 04/10/17 14:48 Dose: 120 ml Pantoprazole Sodium (Protonix) 40 mg PO DAILY [facility] Last Admin: 04/10/17 08:23 Dose: 40 mg Sodium Chloride () 5 - 30 ml IV UD PRN PRN Reason: SALINE FLUSH Last Admin: 04/09/17 08:44 Dose: 10 ml Tamsulosin HCl (Flomax) 0.4 mg PO DAILY [facility] Last Admin: 02/05/18 08:22 Dose: 0.4 mg Theophylline (Bakari-24) 300 mg PO DAILY [facility] Last Admin: 04/10/17 08:23 Dose: 300 mg Trazodone HCl (Desyrel) 50 mg PO QHS [facility] Last Admin: 04/09/17 21:38 Dose: 50 mg Venlafaxine HCl (Effexor Xr) 225 mg PO DAILY [facility] Last Admin: 04/10/17 08:22 Dose: 225 mg Assessment/Plan 81 y/o male with PMHx of COPD with chronic Hypoxic Respiratory Failure, on 2 L home oxygen, admitted with ongoing dyspnea, wheezing, progressively worsening over the last 1-2 days. 1. Acute COPD exacerbation in a patient with chronic Hypoxic Respiratory Failure secondary to COPD, unclear etiology for exacerbation, influenza screen is negative, will continue with breathing treatments, oxygen therapy, IV Solu- Medrol, levaquin(for total of 5 days),continue to monitor, would consult pulmonary if patient continues to worsen, will need to follow-up with pulmonary in the outpatient 2. Hypertension, controlled, continue on metoprolol, continue to monitor blood pressures closely 3. Anxiety and Depression, on buspar, remeron, trazodone. 4. BPH, on flomax 5. Chronic Severe Protein-Calorie Malnutrition, nutrition consulted. 6. Hyperglycemia, likely secondary to steroids, will check HbA1c 7. DVT Prophylaxis with SCDs, heparin. Code Visit Inpatient E&M: 06440 Subs Hosp L2
--- NOTE | 2017-04-10 20:14 | NURSING ---
Pt is SOB after having stood at bedside to void. O2 at 3L maintained. Instructed on pursed lip breathing which pt is familiar with. Back in bed and respirations calming down. Aware that he just had breathing tmt around 1900 and can have another one around 2099.
[2017-04-10] MEDS: traZODone 50 MG Tablet PO (22:13)
[2017-04-10] MEDS: Mirtazapine 15 MG Tablet 7.5 MG PO (22:15)
[2017-04-11] VITALS (8 sets, daily range): BP systolic 127–146; BP diastolic 72–101; PULSE 90–102; RESP 18–28; TEMP 36.5–36.8; O2SAT 9–99
[2017-04-11] MEDS: levoFLOXacin 500 MG Tablet PO (05:51)
--- NOTE | 2017-04-11 06:25 | NURSING ---
[facility] called for breathing tmt per pt request.
[2017-04-11] MEDS: Ipratropium/Albuterol Sulfate 3 ML AMPUL.NEB INHALATION ×3 (06:47→14:47)
[2017-04-11] MEDS: Budesonide Respules 0.5 MG/2 ML AMPUL.NEB. INHALATION (06:47)
[2017-04-11] MEDS: 0.9% Normal Saline 1,000 ML 100 ML IV (07:38)
[2017-04-11] MEDS: Aspirin E.C. 81 MG Tablet PO (08:59)
[2017-04-11] MEDS: Montelukast 10 MG Tablet PO (09:02)
[2017-04-11] MEDS: Pantoprazole Sodium 40 MG Tablet PO (09:03)
[2017-04-11] MEDS: Metoprolol Tartrate 25 MG Tablet PO (09:03)
[2017-04-11] MEDS: Finasteride 5 MG Tablet PO (09:03)
[2017-04-11] MEDS: Venlafaxine XR 75 MG Capsule 225 MG PO (09:04)
[2017-04-11] MEDS: Tamsulosin HCl 0.4 MG Capsule PO (09:04)
[2017-04-11 09:42] LABS: Absolute Neutrophil Count 14.1 X10^3/uL (2.0-7.7); Basophil# 0.01 X10^3/uL; Basophil% 0.1 % (0-1); Hematocrit 37.5 % (40-54); Lymphocyte % 3.2 % (19-41); Mean Corpuscular Hgb 29.1 pg (27.0-32.0); Mean Platelet Vol. 9.1 fl (6.2-12.0); Monocyte# 0.67 X10^3/uL; Monocyte% 4.3 % (0-10); Neutrophil # 14.08 X10^3/uL (2.7-7.7); Neutrophil % 91.3 % (47-70); Platelet Count 179 K/mm3 (150-450); RBC Distribution Width SD 48.4 fl (35.1-43.9); Red Blood Count 4.12 M/mm3 (4.6-6.2); White Blood Count 15.4 K/mm3 (4.4-11.0)
[2017-04-11 09:43] LABS: Differential Indicated SCAN CRITERIA MET; POSITIVE COUNT NO; POSITIVE DIFFERENTIAL YES; POSITIVE MORPHOLOGY NO
[2017-04-11 10:15] LABS: Anion Gap 9 (5-15); BUN 27 mg/dL (7-18); BUN/Creat Ratio 20.3 RATIO (10-20); Calcium,Total 8.8 mg/dL (8.5-10.1); Chloride 108 mmol/L (98-107); Creatinine, Serum 1.33 mg/dL (0.70-1.30); EST Glomerular Filtration Rate 55 mL/min (>60); Est Glom Filt Rate - Afr Amer 66 mL/min (>60); Estimated Creatinine Clearance 33.07 ml/min; Glucose 261 mg/dL (74-106); Potassium 4.1 mmol/L (3.5-5.1); Sodium Level 140 mmol/L (136-145)
--- NOTE | 2017-04-11 10:17 | CASEMGMT ---
Social Work Note Palliative care consult made per pt and family request. Faxed to [facility] and informed for them to contact the pt's daughter to setup a meeting. CASI AndrewsW
--- NOTE | 2017-04-11 10:18 | PCM.DC ---
- Discharge Diagnoses Reason(s) for Visit for Discharge Instructions: Cough, Shortness of breath You will use the following diet at home:: Regular Your food should be the consistency of: Regular Your liquids should be the consistency of: Regular/Thin Discharge Activity: Return to Normal Activity Allergies/Adverse Reactions: Allergies No Known Allergies Allergy (Verified 04/08/17 22:22) Medications to take at Discharge Albuterol Aerosols [Ventolin Aerosols] 2.5 mg INHALATION Q6H PRN PRN 10/20/16 Albuterol IH (ProAir) [Proair Hfa] 2 puff INHALATION Q4H PRN PRN 10/20/16 Aspirin [Aspirin EC] 81 mg PO DAILY 10/20/16 Budesonide Aerosol [Pulmicort Respules] 1 mg INHALATION Q12H 10/20/16 BusPIRone [Buspar] 5 mg PO TID 10/20/16 Dorzolamide HCl [Trusopt] 1 drp OP TID 10/20/16 Finasteride [Proscar] 5 mg PO DAILY 10/20/16 Lactose-Reduced Food [Ensure Plus] 237 ml PO DAILY 10/20/16 Latanoprost 1 drp OP QHS 10/20/16 Metoprolol Tartrate 25 mg PO BID 10/20/16 Mirtazapine 7.5 mg PO QHS 10/20/16 Montelukast [Singulair] 10 mg PO DAILY 10/20/16 Omeprazole 20 mg PO DAILY 10/20/16 Tamsulosin HCl [Flomax] 0.4 mg PO DAILY 10/20/16 Tiotropium [place] [Spiriva 18 MCG] 2 puff INHALATION DAILY 10/20/16 Trazodone HCl [Desyrel] 50 mg PO QHS 10/20/16 Venlafaxine HCl [Effexor Xr] 225 mg PO DAILY 10/20/16 Guaifenesin [Mucinex] 400 mg PO Q4H PRN PRN 01/15/17 Lactose-Reduced Food [Ensure Plus] 237 ml PO BID 01/15/17 food supplement, lactose-reduced oral liquid ea PO 02/17/17 theophylline ER 300 mg tablet,extended release,12 hr 300 mg PO DAILY tab 02/17/17 Cholecalciferol (VIT D3) [Vitamin D] 4,000 unit PO DAILY 04/09/17 Docusate Sodium [Colace] 100 mg PO BID 04/09/17 Ensure Enlive 120 ml PO 4X/DAY #100 liquid 04/11/17 Levofloxacin [Levaquin] 500 mg PO DAILY #3 tab 04/11/17 Prednisone 10 mg PO UD #30 tablet 04/11/17 The following prescriptions were given: Levofloxacin [Levaquin] 500 mg PO DAILY #3 tab Prednisone 10 mg PO UD #30 tablet Ensure Enlive 120 ml PO 4X/DAY #100 liquid Orders to be completed after discharge: Basic Metabolic Profile (BMP) Time Frame: 1 Week, Location: Laboratory CBC W/Diff, Automated Location: Laboratory Primary Care Physician: Neha Link MD [Primary Care Provider] - Please follow up with your Primary Care Physician in: within 2 weeks Please Follow Up With: Alvin Shaffer MD When: within 2 weeks Proposed Discharge Date: 04/11/17
--- NOTE | 2017-04-11 10:22 | PCM.DC.SUM ---
Discharge Date and Diagnosis Date of Admission: 04/09/17 Date of Discharge: 04/11/17 - Primary Discharge Diagnosis Acute on chronic respiratory failure Acute COPD exacerbation - Secondary Discharge Diagnosis Chronic Problems COPD (chronic obstructive pulmonary disease) (Chronic) SOB (shortness of breath) (Chronic) Chronic respiratory failure with hypoxia (Chronic) 2L NC baseline home usage. BPH (benign prostatic hypertrophy) (Chronic) Hypertension (Chronic) Anxiety disorder (Chronic) Hospital Course and Treatment Imaging Results: Clinical Impression(s) from Imaging Studies Chest X-Ray 04/08/17 23:17 IMPRESSION: COPD. No acute cardiopulmonary disease. No significant interval change. Electronically Signed: Diane Lee MD at 0:47 EST , Service support , Chest X-Ray 04/09/17 05:55 IMPRESSION: Stable chest no evidence of acute focal infiltrate could consider chronic obstructive pulmonary disease. Partial Visualization of multiple distended loops of small bowel in the upper abdomen recommend correlation with abdominal symptoms. Electronically Signed: Patricia Melgar MD at 10:43 EST Tel , Service support , None Operations: None Procedures: None Summary of Care Provided: 81 y/o male with PMHx of COPD with chronic Hypoxic Respiratory Failure, on 2 L home oxygen, admitted with ongoing dyspnea, wheezing, progressively worsening over the last 1-2 days. 1. Acute COPD exacerbation in a patient with chronic Hypoxic Respiratory Failure secondary to COPD, advanced stage, unclear etiology for exacerbation, influenza screen is negative, managed on IV solumedrol, breathing treatment, and transitioned to po prednisone and levaquin. Will follow-up with pulmo in outpatient. Will get palliative care at home. 2. Hypertension, controlled, continue on metoprolol 3. Anxiety and Depression, on buspar, remeron, trazodone. 4. BPH, on flomax 5. Chronic Severe Protein-Calorie Malnutrition, nutrition consulted. 6. Hyperglycemia, likely secondary to steroids, will need to be monitored Discharge Diet: No Restrictions Discharge Activity: Return to Normal Activity Home Medications: Medications to take at Discharge Albuterol Aerosols [Ventolin Aerosols] 2.5 mg INHALATION Q6H PRN PRN 10/20/16 Albuterol IH (ProAir) [Proair Hfa] 2 puff INHALATION Q4H PRN PRN 10/20/16 Aspirin [Aspirin EC] 81 mg PO DAILY 10/20/16 Budesonide Aerosol [Pulmicort Respules] 1 mg INHALATION Q12H 10/20/16 BusPIRone [Buspar] 5 mg PO TID 10/20/16 Dorzolamide HCl [Trusopt] 1 drp OP TID 10/20/16 Finasteride [Proscar] 5 mg PO DAILY 10/20/16 Lactose-Reduced Food [Ensure Plus] 237 ml PO DAILY 10/20/16 Latanoprost 1 drp OP QHS 10/20/16 Metoprolol Tartrate 25 mg PO BID 10/20/16 Mirtazapine 7.5 mg PO QHS 10/20/16 Montelukast [Singulair] 10 mg PO DAILY 10/20/16 Omeprazole 20 mg PO DAILY 10/20/16 Tamsulosin HCl [Flomax] 0.4 mg PO DAILY 10/20/16 Tiotropium [place] [Spiriva 18 MCG] 2 puff INHALATION DAILY 10/20/16 Trazodone HCl [Desyrel] 50 mg PO QHS 10/20/16 Venlafaxine HCl [Effexor Xr] 225 mg PO DAILY 10/20/16 Guaifenesin [Mucinex] 400 mg PO Q4H PRN PRN 01/15/17 Lactose-Reduced Food [Ensure Plus] 237 ml PO BID 01/15/17 food supplement, lactose-reduced oral liquid ea PO 02/17/17 theophylline ER 300 mg tablet,extended release,12 hr 300 mg PO DAILY tab 02/17/17 Cholecalciferol (VIT D3) [Vitamin D3] 4,000 unit PO DAILY 04/09/17 Docusate Sodium [Colace] 100 mg PO BID 04/09/17 Ensure Enlive 120 ml PO 4X/DAY #100 liquid 04/11/17 Levofloxacin [Levaquin] 500 mg PO DAILY #3 tab 04/11/17 Prednisone 10 mg PO UD #30 tablet 04/11/17 Following Prescrptions Were Given to Patient: Levofloxacin [Levaquin] 500 mg PO DAILY #3 tab Prednisone 10 mg PO UD #30 tablet Ensure Enlive 120 ml PO 4X/DAY #100 liquid Other Amb Orders: CBC W/Diff, Automated Location: Laboratory Primary Care Physician: Neha Link MD [Primary Care Provider] - Please follow up with your Primary Care Physician in: within 2 weeks Please Follow Up With: Alvin Shaffer MD When: within 2 weeks Disposition: Home Minutes spent on discharge:: 25 Patient Condition:: Stable Meaningful Use Info Meaningful Use Diagnoses (Choose all that apply): None applicable Code Visit Inpatient E&M: 67471 Disch Hosp
--- NOTE | 2017-04-11 14:37 | CASEMGMT ---
SAROJ CASTANON Face to Face with patient for initial transition planning/care coordination assessment. SAROJ CASTANON introduced self and role at [facility]. Patient lying in bed, alert and oriented. Patient willing to participate in assessment and is able to answer all questions appropriately. Care providers, pharmacy, and demographics verified. Patient states that he lives with his daughter and has home oxygen, walker, cane, lift chair, nebulizer, and CPap at home. Patient wishes to discharge home, denies need for home health at this time. Patient states that he sees Dr. Shaffer, roof technician. Patient states he has no further needs or concerns at this time. CM to remain available should discharge needs arise. Disposition Plan: Patient to discharge home with family support and follow-up plans in place. Family requested consult for palliative.
[2017-04-11] MEDS: guaiFENesin 10 ML UDC (200MG/10ML) 20 ML PO (15:23)
== END 2017-04-11 18:25 | disposition home or self-care (01) | DRG 190 ==
LOC: ED 23:49 → MS3 04-09 00:57
PROVIDERS: Admitting Provider Internal Medicine; Emergency Provider Emergency Medicine; Family Provider Internal Medicine; PCP Internal Medicine; Visit Provider Internal Medicine
DX: J44.1 Chronic obstructive pulmonary disease with (acute) exacerbation (principal); E43 Unspecified severe protein-calorie malnutrition; J96.21 Acute and chronic respiratory failure with hypoxia; Z99.81 Dependence on supplemental oxygen; I10 Essential (primary) hypertension; N40.0 Benign prostatic hyperplasia without lower urinary tract symptoms; F41.9 Anxiety disorder, unspecified; Z68.25 Body mass index [BMI] 25.0-25.9, adult
CPT/HCPCS: 36415; 71045; 71046; 80048; 80053; 85025; 87040; 87449; 87804; 94640; 94667; 94668; 97802; 99285; J7030; J7050; A4216

== ENCOUNTER → 2017-05-02 09:06 | Outpatient (CLI) | payer MEDICARE, OTHER, SELFPAY ==
--- NOTE | 2017-05-02 14:04 | PFT ---
INTRODUCTION: The patient is an 81-year-old male currently under the care of Dr. Shaffer that presents for pulmonary function testing secondary to a diagnosis of COPD. Respiratory therapy reports good patient effort reports no other concerns. Bronchodilators were used during testing. INTERPRETATION: Forced expiration spirometry demonstrates the presence of a severe large airways obstructive ventilatory defect. There was a significant response to aerosolized bronchodilators, based upon overall change in both FEV1 and FVC. Spirograms are of fair quality and do not plateau indicating slow emptying of the lungs. The respiratory flow volume loop reveals decreased expiratory flow rates at all lung volumes consistent with airways obstruction. Body plethysmography was performed and reveals evidence of both hyperinflation and air-trapping. Diffusing capacity by single breath CO was reduced at 61% of predicted. IMPRESSION: These pulmonary function studies demonstrate the presence of a partially reversible severe large airways obstructive ventilatory defect with associated hyperinflation, air trapping and reduction in diffusing capacity. There are no previous pulmonary function studies available for comparison.
== END ==
PROVIDERS: Visit Provider Internal Medicine Critical Care Medicine
DX: J44.9 Chronic obstructive pulmonary disease, unspecified (principal)
CPT/HCPCS: 94060; 94726; 94729

== ENCOUNTER 2017-11-03 22:46 | Inpatient (IN) | payer MEDICARE, SELFPAY ==
[2017-11-03 22:47] VITALS: BP 164/87; PULSE 93; RESP 26; TEMP 36.3; O2SAT 89; BMI 26.0
[2017-11-03 22:50] VITALS: RESP 22; O2SAT 96
[2017-11-03 22:59] VITALS: O2SAT 94
--- NOTE | 2017-11-03 23:04 | ED.VISSUMM ---
- ER Visit Summary Date of Service: 11/03/17 Chief Complaint: Dyspnea History of Present Illness: The patient is a 82 M history of COPD on 2 L chronic oxygen, worsening dyspnea over 3 days. Nonproductive cough, wheezing. Saw his poultry dresser 2 days ago started on a steroid taper, on his second day. Symptoms worse with exertion. Yesterday and today had transient midsternal chest pain lasting 15 minutes since resolved. There is no radicular symptoms. States currently mild chest tightness due to his dyspnea. Similar flares in the past. No diabetes history. Remote tobacco. Physical Examination: General: Alert and oriented ?3, speaking in full sentences HEENT: Normocephalic, atraumatic. Moist mucosa membranes Neck: supple, nontender. Cardiovascular: Regular rate and rhythm, no murmurs Respiratory: Diffuse expiratory wheezing, no accessory muscle use. Abdomen: Soft, nontender, nondistended Extremities: Nontender, no edema, pulses intact ?4 Neuro: no focal neurological deficits. Test Results: EKG sinus rate of [address] changes. There is T-wave inversion in V2. Chest x-ray negative. White count 17.9. Hemoglobin 13.6. Creatinine 1.59. Troponin 0 0.073. Emergency Department Course and Treatment: Patient no current chest pain EKG notes T-wave inversion in V2. Wheezing. Aerosol treatments Solu-Medrol. Oxygen continued on his 2 L. Reevaluation wheezing improved breathing improved. However cardiac workup known elevated troponin. He has no current chest pain. CONSTANCE scores a 2. Heart scores of 5. History of hypertension remote tobacco. He states in the past. Unclear on his last stress test. However no AK history. He is given aspirin therapy. CA has cleared to stay at this hospital. Will discuss with hospitalist for admission. Discussed with Dr. Rider. We will start doxycycline IV. Patient be admitted to PCU. Treatment Plan: [] Disposition: Admission Impression: 1. COPD exacerbation 2. Chest pain 3. Elevated troponin This note was generated with Zarfo dictation software. It may contain incorrect words, spelling, and punctuation that were not noted in review of the chart prior to signing ED Disposition - Plan for ED Patient: Disposition: Acute Care Hospital [facility] Chief Complaint: Shortness of Breath Diagnosis: COPD exacerbation, Chest pain, Elevated troponin Referrals: [facility] [Primary Care Provider] -
[2017-11-03] MEDS: MethylPREDNISolone 125 MG/2 ML Vial IV (23:09)
[2017-11-03 23:11] LABS: Absolute Neutrophil Count 16.4 X10^3/uL (2.0-7.7); Basophil% 0.1 % (0-1); Eosinophils% 0.3 % (0-5); Hemoglobin 13.6 g/dl (13.0-16.5); Lymphocyte % 3.3 % (19-41); Mean Corp Hgb Conc 32.4 g/gl (32-36); Mean Corpuscular Hgb 28.1 pg (27.0-32.0); Mean Corpuscular Volume 86.8 fL (80-94); Mean Platelet Vol. 9.4 fl (6.2-12.0); Monocyte% 4.2 % (0-10); Neutrophil # 16.35 X10^3/uL (2.7-7.7); Neutrophil % 91.4 % (47-70); Platelet Count 229 K/mm3 (150-450); RBC Distribution Width CV 15.3 % (11.6-14.6); RBC Distribution Width SD 48.6 fl (35.1-43.9); Red Blood Count 4.84 M/mm3 (4.6-6.2); White Blood Count 17.9 K/mm3 (4.4-11.0)
[2017-11-03 23:12] LABS: Absolute Lymphocyte Count 0.59 X10^3/ul (0.83-4.51); Basophil# 0.02 X10^3/uL; Eosinophil# 0.05 X10^3/uL; Lymphocyte # 0.59 X10^3/ul (4.0); Monocyte# 0.75 X10^3/uL
[2017-11-03 23:20] LABS: Differential Indicated SCAN CRITERIA MET; POSITIVE COUNT NO; POSITIVE DIFFERENTIAL YES; POSITIVE MORPHOLOGY NO
[2017-11-03] MEDS: Ipratropium/Albuterol Sulfate 3 ML AMPUL.NEB INHALATION (23:20)
[2017-11-03] MEDS: Albuterol 2.5 MG/3 ML VIAL.NEB. INHALATION ×2 (23:20)
[2017-11-03 23:21] VITALS: PULSE 86; RESP 17
[2017-11-03 23:59] LABS: Anion Gap 12 (5-15); BUN 25 mg/dL (7-18); BUN/Creat Ratio 15.7 RATIO (10-20); Chloride 101 mmol/L (98-107); Creatinine, Serum 1.59 mg/dL (0.70-1.30); EST Glomerular Filtration Rate 44 mL/min (>60); Est Glom Filt Rate - Afr Amer 54 mL/min (>60); Estimated Creatinine Clearance 27.19 ml/min; Glucose 247 mg/dL (74-106); Potassium 4.3 mmol/L (3.5-5.1); Sodium Level 138 mmol/L (136-145)
[2017-11-04] VITALS (21 sets, daily range): BP systolic 126–158; BP diastolic 53–80; PULSE 71–102; RESP 18–24; TEMP 36.5–36.8; O2SAT 95–98; BMI 25.9
--- NOTE | 2017-11-04 00:41 | NURSING ---
[facility]. WAS INFORMED BY BRENDA THAT THEY HAD NO AVAILABLE BEDS SO PATIENT WAS ABLE TO STAY AT OUR FACILITY.
--- NOTE | 2017-11-04 00:45 | PCM.HP.STD ---
Problem List (1) COPD exacerbation Status: Acute (2) Chest pain Status: Acute Qualifiers: Chest pain type: unspecified Qualified Code(s): R07.9 - Chest pain, unspecified (3) Asthma, severe persistent Status: Chronic Qualifiers: Asthma complication type: unspecified Qualified Code(s): J45.50 - Severe persistent asthma, uncomplicated (4) COPD (chronic obstructive pulmonary disease) Status: Chronic Qualifiers: COPD type: unspecified COPD Qualified Code(s): J44.9 - Chronic obstructive pulmonary disease, unspecified (5) Chronic respiratory failure with hypoxia Status: Chronic Comment: 2L NC baseline home usage. (6) BPH (benign prostatic hypertrophy) Status: Chronic Qualifiers: Lower urinary tract symptom presence: unspecified whether lower urinary tract symptoms present Qualified Code(s): N40.0 - Benign prostatic hyperplasia without lower urinary tract symptoms (7) Hypertension Status: Chronic Qualifiers: Hypertension type: essential hypertension Qualified Code(s): I10 - Essential (primary) hypertension (8) Anxiety disorder Status: Chronic Qualifiers: Anxiety disorder type: unspecified anxiety disorder Qualified Code(s): F41.9 - Anxiety disorder, unspecified History of Present Illness Date of Admission: 11/04/17 Chief Complaint: Dyspnea, cough, wheezing, chest pain The patient is a 82 y/o M w/ PMHx: CKD stage III, Chronic COPD/Asthma w/ Chronic Hypoxic Respiratory Failure, HTN, GLENNA, Anxiety and Depression, BPH, Former Tobacco use who presents to the [facility] ED on 11/04/17 with history of progressively worsening dyspnea, non-productive cough and wheezing x 3 days in addition to recent onset substernal chest pressure described as a tightness rated 10 out of 10 with onset over the last 24 hours specifically with any increased exertion or increased dyspnea, improvement with rest with no radiation with recent COPD exacerbation treatment initiation per Dr. Shaffer w/ steroid taper started ~ 2 days ago. In the ED work-up included T 97.4, HR 93, BP 164/87, RR 26-->17, 89% on RA-->96% on 2L NC, CBC with WBC 17.9, hemoglobin 13.6, platelet 229 with left shift, BMP with BUN/creatinine 25/1.59, glucose 247, troponin 0 0.073, chest x-ray with chronic COPD changes, EKG w/ SR without acute evidence of ischemia w/ T wave inversion II otherwise no acute findings. In the ED patient administered Solu-Medrol, aspirin, DuoNeb and albuterol aerosols. (11) DVT Prophylaxis: SCDs, heparin. Past Medical History Past Medical History (Chronic Problems): Chronic Problems (Last Reviewed 07/28/17 @ 10:40 by Cathi Walls TRUCK SERVICE TECHNICIAN-C) Asthma, severe persistent (Chronic) Stage 4 very severe COPD by GOLD classification (Chronic) FEV1 45% COPD (chronic obstructive pulmonary disease) (Chronic) SOB (shortness of breath) (Chronic) Chronic respiratory failure with hypoxia (Chronic) 2L NC baseline home usage. BPH (benign prostatic hypertrophy) (Chronic) Hypertension (Chronic) Anxiety disorder (Chronic) Medical History: Medical History (Last Reviewed 07/28/17 @ 10:40 by Cathi aWlls NP-C) COPD (chronic obstructive pulmonary disease) (Chronic) J44.9 SOB (shortness of breath) (Chronic) R06.02 Chronic respiratory failure with hypoxia (Chronic) J96.11 2L NC baseline home usage. COPD exacerbation (Acute) J44.1 BPH (benign prostatic hypertrophy) (Chronic) N40.0 Hypertension (Chronic) I10 Anxiety disorder (Chronic) F41.9 Depression F32.9 Glaucoma H40.9 Hearing loss H91.90 GLENNA (obstructive sleep apnea) G47.33 Cataracts, bilateral H26.9 Allergies No Known Allergies Allergy (Verified 11/03/17 22:48) Home Medications: Ambulatory Orders Medication Instructions Recorded Albuterol IH (ProAir) [Proair Hfa] 2 puff INHALATION Q4H PRN PRN 10/20/16 Aspirin [Aspirin EC] 81 mg PO DAILY 10/20/16 Dorzolamide HCl [Trusopt] 1 drp OP TID 10/20/16 Finasteride [Proscar] 5 mg PO DAILY 10/20/16 Latanoprost 1 drp OP QHS 10/20/16 Metoprolol Tartrate 25 mg PO BID 10/20/16 Mirtazapine 7.5 mg PO QHS 10/20/16 Montelukast [Singulair] 10 mg PO DAILY 10/20/16 Omeprazole 20 mg PO DAILY 10/20/16 Tamsulosin HCl [Flomax] 0.4 mg PO DAILY 10/20/16 Tiotropium [place] [Spiriva 18 MCG] 2 puff INHALATION DAILY 10/20/16 Venlafaxine HCl [Effexor Xr] 225 mg PO DAILY 10/20/16 busPIRone [Buspar] 5 mg PO TID 10/20/16 traZODone [Desyrel] 50 mg PO QHS 10/20/16 Guaifenesin [Mucinex] 400 mg PO Q4H PRN PRN 01/15/17 Cholecalciferol (VIT D3) [Vitamin 4,000 unit PO DAILY 04/09/17 D3] Docusate Sodium [Colace] 100 mg PO BID PRN 04/09/17 prednisone 10 mg tablet 10 mg PO QDAY #90 tab 05/02/17 budesonide-formoterol HFA 160 2 puff INHALATION BID 07/27/17 mcg-4.5 mcg/actuation aerosol inhaler loratadine 10 mg capsule 10 mg PO QDAY #30 cap 07/27/17 albuterol sulfate 2.5 mg/3 mL 2.5 mg INHALATION Q4H PRN #75 ml 11/01/17 (0.083 %) solution for nebulization Surgical History: Surgical History (Last Reviewed 07/28/17 @ 10:40 by ESTFEANI Helm) Cataract surgery 2011 History of appendectomy Z98.890, Z90.49 1942 Surgical History: appendectomy, cataract Psychiatric History: Anxiety, Depression Lives: With Family - Lives with his daughter and her family. Smoking Status: Former smoker Tobacco Use: Non-smoker Alcohol: None Drugs: None - *Family History Maternal Family History: Family History (Last Reviewed 07/28/17 @ 10:40 by ESTEFANI Helm) Grandfather Cancer History Items: - - mother lived to age 101 Paternal Family History: Family History (Last Reviewed 07/28/17 @ 10:40 by ESTEFANI Helm) Grandfather Cancer History Items: Stroke - CVA in older years, at age 90, - - father lived to be 90 Offspring Family History: Family History (Last Reviewed 07/28/17 @ 10:40 by ESTEFANI Helm) Grandfather Cancer History Items: No pertinent history Review of Systems Constitutional: Reports: Malaise, Weakness, Fatigue. Denies: Chills, Fever, Weight Change HEENT: Denies: Head Aches, Sinus Congestion, Sinus Drainage Cardiovascular: Reports: Chest Pain, Chest Pressure, Chest Tightness. Denies: Light Headedness, Orthopnea, Palpitations, Syncope Respiratory: Reports: Cough, Shortness of Breath, Shortness of breath at rest, Shortness of breath upon exertion, Wheezing. Denies: Sputum production Gastrointestinal: Denies: Abdominal Pain, Nausea, Vomiting Genitourinary: Denies: Dysuria Musculoskeletal: Reports: Back Pain. Denies: Joint Pain, Joint Tenderness Skin: Denies: Rash, Wounds Neurological: Denies: Numbness, Tingling, Focal weakness Psychiatric: Reports: Anxiety, Depression. Denies: Homicidal Ideations, Suicidal Ideations Hematologic/ Lymphatic: Denies: Easy Bruising, Easy Bleeding VTE Information - Inpt Only VTE Present on Admission: No VTE Mechan Device Prophylaxis: SCD's VTE Pharm Prophylaxis ordered?: Yes Patient Problems: Active and Suspected Problems (Last Reviewed 07/28/17 @ 10:40 by Cathi Walls NP-C) Chest pain (Acute) Subjective: Seated upright in the ED bed, notes marked improvement since initial ED presentation, breathing improved, no current chest pain. Completely resolved w/ respiratory improvement he notes. Objective: Physical Examination: General: awake, alert, oriented x 3 and cooperative, seated upright in the ED bed, notes improved since initial ED presentation, RR still increased and some accessory muscle usage as well as conversational dyspnea. Skin: normal color, turgor, no icterus, cyanosis. HEENT: AT/NC, EOMI, PERRLA, moderately dry MM, no carotid bruits or JVD noted. Lungs: Diffusely diminished BS throughout, > bases and posteriorly, distant inspiratory and expiratory wheezing, RR still increased and some accessory muscle usage as well as conversational dyspnea. Heart: Regular rate and rhythm; no gallop, rub audible. Abdomen: soft, NTTP, ND, normal BS, no HSM. Extremities: no cyanosis, clubbing, or edema. Neurological: patient awake, alert, oriented x 3; cognitive function intact; pupils equally reactive to light and accomodation; cranial nerves II-XII grossly normal, moving all 4 extremities, no focal deficits, strength severely globally decreased secondary to acute presentation. Psychiatric: affect appears normal, no acute evidence of depressive or anxiety feelings. - Physical Exam Vital Signs Temp Pulse Resp BP Pulse Ox 97.4 F L 86 17 164/87 H 96 11/03/17 22:47 11/03/17 23:21 11/03/17 23:21 11/03/17 22:47 11/03/17 22:50 Oxygen Flow Rate (L/min) 2 Oxygen Delivery Method Nasal Cannula Weight: 142 lb 6.698 oz Body Mass Index (BMI) 26.0 Laboratory Tests Past 24 Hrs 11/03/17 11/03/17 22:54 22:54 WBC 17.9 H RBC 4.84 Hgb 13.6 Hct 42.0 MCV 86.8 MCH 28.1 MCHC 32.4 RDW 15.3 H RDW Differential 48.6 H Plt Count 229 MPV 9.4 Immature Gran % (Auto) 0.700 Neut % (Auto) 91.4 H Lymph % (Auto) 3.3 L [place] % (Auto) 4.2 Eos % (Auto) 0.3 Baso % (Auto) 0.1 Absolute Neuts (auto) 16.4 H Absolute Lymphs (auto) 0.59 L Total Counted Not Reportable Sodium 138 Potassium 4.3 Chloride 101 Carbon Dioxide 25.0 Anion Gap 12 BUN 25 H Creatinine 1.59 H Estim Creat Clear Calc 27.19 Est GFR (MDRD) Af Amer 54 L Est GFR (MDRD) Non-Af 44 L BUN/Creatinine Ratio 15.7 Glucose 247 H Calcium 9.0 Troponin I 0.073 H Assessment/Plan All Active Problems (Last Reviewed 07/28/17 @ 10:40 by Cathi Walls, LARON-C) Chest pain (Acute) COPD exacerbation (Acute) COPD (chronic obstructive pulmonary disease) (Acute) The patient is a 82 y/o M w/ PMHx: CKD stage III, Chronic COPD/Asthma w/ Chronic Hypoxic Respiratory Failure, HTN, GLENNA, Anxiety and Depression, BPH, Former Tobacco use who presents to the [facility] ED on 11/04/17 with history of progressively worsening dyspnea, non-productive cough and wheezing x 3 days in addition to recent onset substernal chest pressure described as a tightness rated 10 out of 10 with onset over the last 24 hours specifically with any increased exertion or increased dyspnea, improvement with rest with no radiation with recent COPD exacerbation treatment initiation per Dr. Shaffer w/ steroid taper started ~ 2 days ago. (1) Acute on Chronic Hypoxic Respiratory Failure secondary to Acute on chronic COPD exacerbation: ED presentation w/ tachypnea, increased work of breathing, accessory muscle usage, improved following acute treatments. CXR w/ chronic changes, CBC on admission w/ 17.9 with L shift. Will admit to PCU, maintain on oxygen with wean as tolerated to home oxygen supplementation, continue ATC duonebs, PRN albuterol, IV methylprednisolone with prednisone transition, HOB, IS parameters, IV Doxycycline with pending sputum cultures and respiratory viral panel. (2) Indeterminate cardiac enzyme w/ Chest Pain: EKG in ED w/ SR without acute evidence of ischemia w/ T wave inversion II otherwise no acute findings, CXR w/ chronic changes, initial trop 0.073. Suspect demand ischemia secondary to acute presentation, #1. Will place on a monitored bed to assure no acute myocardial infarction with serial cardiac enzymes and EKGs. ASA, NG, morphine. FLP in AM. Mag pending. ECHO requested. Given current acute COPD exacerbation would plan to continue current treatment and plan and once improved from pulmonary status will necessitate stress test versus cardiology evaluation. (3) Hyperglycemia: Admission glucose 247, prior noted elevations also on steroids, will obtain HgBA1c to ascertain his trend. (4) Chronic Kidney Disease Stage III: Admission BUN/Cr 25/1.59, baseline renal function 1.3-1.4, repeat BMP in AM. (5) Hypertension: Continue home regimen including metoprolol, PRN hydralazine. (6) Hyperlipidemia: FLP in AM, not on regimen. (7) BPH: Maintain on home regimen proscar and flomax. (8) Anxiety and Depression: Maintain on home regimen BuSpar, Effexor, trazodone. (9) GERD: PPI. (10) GLENNA: CPAP q HS. (11) DVT Prophylaxis: SCDs, heparin. (12) CODE status: Discussed CODE status at length including difference between FULL code, DNR-CCA and DNR-CC status. Following discussions about the differences in these status, confirmed living will in place, daughter is his HCPOA and requested continued DNR-CCA, no intubation status. Advanced Care Planning Face to Face Time: 17 minutes. Code Visit Inpatient E&M: 05342 Init Hosp L3 Procedures: 72654 Advncd Care Plan 30 Min
[2017-11-04] MEDS: Aspirin 325 MG Tablet PO (00:52)
--- NOTE | 2017-11-04 01:48 | EKG12_ITS ---
Test Reason : AM EKG Blood Pressure : / mmHG Vent. Rate : 090 BPM Atrial Rate : 090 BPM P-R Int : 144 ms QRS Dur : 076 ms QT Int : 364 ms P-R-T Axes : 067 -30 026 degrees QTc Int : 445 ms Normal sinus rhythm Left axis deviation /LAHB Nonspecific ST and T wave abnormality Abnormal ECG When compared with ECG of 04-NOV-2017 02:16, MANUAL COMPARISON REQUIRED, DATA IS UNCONFIRMED Confirmed by YAHAIRA LAWRENCE ([id number]), video editor CARROLL AGUIRRE ([id number]) on 11/14/2017 2:54:58 PM Referred By: TAISHA Confirmed By:YAHAIRA LARWENCE
[2017-11-04 02:01] LABS: Magnesium 2.1 mg/dL (1.6-2.6)
[2017-11-04] MEDS: Ipratropium/Albuterol Sulfate 3 ML AMPUL.NEB INHALATION ×6 (03:41→23:51)
[2017-11-04] MEDS: busPIRone 5 MG Tablet PO ×3 (05:35→21:57)
[2017-11-04] MEDS: 0.9% NaCl Peripheral Flush Adult/Peds IV ×2 (05:36→21:58)
[2017-11-04 05:41] LABS: Absolute Lymphocyte Count 0.36 X10^3/ul (0.83-4.51); Absolute Neutrophil Count 15.8 X10^3/uL (2.0-7.7); Basophil# 0.01 X10^3/uL; Basophil% 0.1 % (0-1); Hematocrit 40.4 % (40-54); Hemoglobin 12.6 g/dl (13.0-16.5); Lymphocyte # 0.36 X10^3/ul (4.0); Lymphocyte % 2.2 % (19-41); Mean Corp Hgb Conc 31.2 g/gl (32-36); Mean Corpuscular Hgb 27.3 pg (27.0-32.0); Mean Corpuscular Volume 87.4 fL (80-94); Mean Platelet Vol. 9.4 fl (6.2-12.0); Monocyte% 1.2 % (0-10); Neutrophil % 95.9 % (47-70); Platelet Count 202 K/mm3 (150-450); RBC Distribution Width CV 15.2 % (11.6-14.6); RBC Distribution Width SD 48.6 fl (35.1-43.9); Red Blood Count 4.62 M/mm3 (4.6-6.2); White Blood Count 16.5 K/mm3 (4.4-11.0)
[2017-11-04 05:42] LABS: Differential Indicated SCAN CRITERIA MET; POSITIVE COUNT NO; POSITIVE DIFFERENTIAL YES; POSITIVE MORPHOLOGY NO
[2017-11-04 06:05] LABS: ALB/GLOB Ratio 0.9 RATIO (0.9-2.4); AST(SGOT) 12 U/L (15-37); Alanine Aminotransfer ALT/SGPT 22 U/L (16-61); Albumin, Serum 3.2 g/dL (3.2-5.0); Alkaline Phosphatase 43 U/L (45-117); Anion Gap 10 (5-15); BUN 24 mg/dL (7-18); BUN/Creat Ratio 15.7 RATIO (10-20); Calcium,Total 8.5 mg/dL (8.5-10.1); Chloride 102 mmol/L (98-107); Cholesterol 104 mg/dL (200); Creatinine, Serum 1.53 mg/dL (0.70-1.30); EST Glomerular Filtration Rate 46 mL/min (>60); Est Glom Filt Rate - Afr Amer 56 mL/min (>60); Estimated Creatinine Clearance 27.06 ml/min; Globulin 3.4 g/dL (2.2-4.2); Glucose 332 mg/dL (74-106); High Density Lipoprotein 81 mg/dL; Potassium 4.3 mmol/L (3.5-5.1); Protein, Total 6.6 g/dL (6.4-8.2); Sodium Level 137 mmol/L (136-145); Triglycerides 42 mg/dL; Very Low Density Lipoprotein 8 mg/dL (5-40)
[2017-11-04] MEDS: Dorzolamide 2% 10ml Bottle 1 DRP EACH EYE ×3 (06:54→22:09)
--- NOTE | 2017-11-04 07:14 | CPS ---
Pt has cpap order, pt asked if he wears Cpap at home. Pt stated he does but hasn't worn it in a year. Pt informed if he wanted to wear it here at night to let respiratory know and we will provide him one at the hospital.
[2017-11-04] MEDS: Finasteride 5 MG Tablet PO (09:47)
[2017-11-04] MEDS: Venlafaxine XR 75 MG Capsule 225 MG PO (09:47)
[2017-11-04] MEDS: guaiFENesin 1,200 MG Tablet 1200 MG PO ×2 (09:47→21:58)
[2017-11-04] MEDS: Metoprolol Tartrate 25 MG Tablet PO ×2 (09:47→21:58)
[2017-11-04] MEDS: Pantoprazole Sodium 20 MG Tablet PO (09:47)
[2017-11-04] MEDS: Tamsulosin HCl 0.4 MG Capsule PO (09:47)
[2017-11-04] MEDS: Loratadine 10 MG Tablet PO (09:47)
[2017-11-04] MEDS: Heparin Injection (Vial) 5,000 UNIT/ML VIAL 5000 UNIT SC ×2 (09:47→21:58)
[2017-11-04] MEDS: Montelukast 10 MG Tablet PO (09:47)
[2017-11-04] MEDS: Aspirin E.C. 81 MG Tablet PO (09:48)
--- NOTE | 2017-11-04 12:58 | PCM.PROGNOTE ---
<Grecia Parikh - Last Filed: 11/04/17 13:31> Patient Problems: Active and Suspected Problems (Last Reviewed 07/28/17 @ 10:40 by Cathi Walls NP-C) Chest pain (Acute) Subjective: Patient seen and examined. States breathing is slightly improved. Complains of chest tightness, worse with exertion. Denies fever, chills. Complains of cough. Patient notes chronic cough at baseline. - Physical Exam General: Alert, Oriented x3, Cooperative, No apparent distress HEENT: Atraumatic, PERRLA, EOMI, Normocephalic Neck: Supple, No JVD, Negative Carotid Bruits Lungs: Diminished, - - Feet wheezing right base Cardiovascular: Regular rate, Regular Rhythm, Normal S1, Normal S2, No murmurs, - - Intermittent tachycardia Abdomen: Bowel Sounds Present, Soft, Non Tender, Non-Distended Extremities: No clubbing, No cyanosis, No edema, Capillary Refill Less than 3 Seconds Skin: No rashes, No breakdown Musculoskeletal: No Tenderness to Palpation of Joints or Extremities Neurological: Cranial nerves II-XII grossly intact, Neuro grossly intact Psych/Mental Status: Normal Affect, Appropriate Vital Signs Temp Pulse Resp BP Pulse Ox 97.9 F 86 18 126/53 H 96 11/04/17 09:50 11/04/17 11:18 11/04/17 11:18 11/04/17 09:50 11/04/17 09:50 Oxygen Flow Rate (L/min) 2 Oxygen Delivery Method Nasal Cannula Weight: 140 lb 14.006 oz Body Mass Index (BMI) 25.9 Intake and Output for Last 24 Hours 11/02/17 11/03/17 11/04/17 23:59 23:59 23:59 Intake Total 832 / 832 Output Total 175 / 175 Balance 657 / 657 Microbiology Past 72 Hours 11/04/17 02:17 Respiratory Panel (PCR) - Final Mucosa - Nasopharyngeal Laboratory Tests Past 24 Hrs 11/04/17 11/04/17 11/04/17 02:15 05:10 05:10 WBC 16.5 H RBC 4.62 Hgb 12.6 L Hct 40.4 MCV 87.4 MCH 27.3 MCHC 31.2 L RDW 15.2 H RDW Differential 48.6 H Plt Count 202 MPV 9.4 Immature Gran % (Auto) 0.600 Neut % (Auto) 95.9 H Lymph % (Auto) 2.2 L Piatt % (Auto) 1.2 Eos % (Auto) 0.0 Baso % (Auto) 0.1 Absolute Neuts (auto) 15.8 H Absolute Lymphs (auto) 0.36 L Total Counted Not Reportable Sodium 137 Potassium 4.3 Chloride 102 Carbon Dioxide 25.0 Anion Gap 10 BUN 24 H Creatinine 1.53 H Estim Creat Clear Calc 27.06 Est GFR (MDRD) Af Amer 56 L Est GFR (MDRD) Non-Af 46 L BUN/Creatinine Ratio 15.7 Glucose 332 H Calcium 8.5 Total Bilirubin 0.50 AST 12 L ALT 22 Alkaline Phosphatase 43 L Troponin I 0.048 H Total Protein 6.6 Albumin 3.2 Globulin 3.4 Albumin/Globulin Ratio 0.9 Triglycerides 42 Cholesterol 104 LDL Cholesterol 15 VLDL Cholesterol 8 HDL Cholesterol 81 11/04/17 05:10 WBC RBC Hgb Hct MCV MCH MCHC RDW RDW Differential Plt Count MPV Immature Gran % (Auto) Neut % (Auto) Lymph % (Auto) Piatt % (Auto) Eos % (Auto) Baso % (Auto) Absolute Neuts (auto) Absolute Lymphs (auto) Total Counted Sodium Potassium Chloride Carbon Dioxide Anion Gap BUN Creatinine Estim Creat Clear Calc Est GFR (MDRD) Af Amer Est GFR (MDRD) Non-Af BUN/Creatinine Ratio Glucose Calcium Total Bilirubin AST ALT Alkaline Phosphatase Troponin I 0.042 Total Protein Albumin Globulin Albumin/Globulin Ratio Triglycerides Cholesterol LDL Cholesterol VLDL Cholesterol HDL Cholesterol Medical Necessity - Tobacco Use Smoking Status: Former smoker Tobacco Use: Non-smoker Assessment/Plan All Active Problems (Last Reviewed 07/28/17 @ 10:40 by Cathi Walls, TIMBER GIRDLER-C) Chest pain (Acute) COPD exacerbation (Acute) COPD (chronic obstructive pulmonary disease) (Acute) 1. Acute exacerbation of COPD with chronic hypoxic respiratory failure-continue IV Solu-Medrol. Albuterol and DuoNeb aerosols. Continue doxycycline empirically given significant lung disease. Chest x-ray without acute changes. Send sputum for culture. Patient chronically wears 2 L nasal cannula at home. Continue supplement oxygen to maintain O2 at or above 90%. Respiratory panel negative. Follows with Dr. Shaffer/Cathi Walls as outpatient. Continue outpatient follow-up at discharge. 2. Indeterminate troponin-trended down. EKG without evidence of ischemia. Suspect demand ischemia secondary to #1. Echocardiogram pending. Possible cardiology evaluation pending echo results. 3. Hypertension-stable, continue home metoprolol. 4. Chronic kidney disease stage III-stable, monitor BMP. 5. GERD-continue PPI. 6. Depression/anxiety-continue home medication. 7. BPH-continue Flomax and Proscar. 8. GLENNA-CPAP nightly. DVT prophylaxis-heparin subcu. This patient was seen by ESTEFANI Jordan under the supervision of Dr. Hudson. <Evelyn Hudson E - Last Filed: 11/04/17 14:31> - Physical Exam Vital Signs Temp Pulse Resp BP Pulse Ox 97.9 F 86 18 126/53 H 96 11/04/17 09:50 11/04/17 11:18 11/04/17 11:18 11/04/17 09:50 11/04/17 09:50 Oxygen Flow Rate (L/min) 2 Oxygen Delivery Method Nasal Cannula Weight: 140 lb 14.006 oz Body Mass Index (BMI) 25.9 Intake and Output for Last 24 Hours 11/02/17 11/03/17 11/04/17 23:59 23:59 23:59 Intake Total 2180 / 2180 Output Total 525 / 525 Balance 1655 / 1655 Microbiology Past 72 Hours 11/04/17 02:17 Respiratory Panel (PCR) - Final Mucosa - Nasopharyngeal Laboratory Tests Past 24 Hrs 11/04/17 11/04/17 11/04/17 02:15 05:10 05:10 WBC 16.5 H RBC 4.62 Hgb 12.6 L Hct 40.4 MCV 87.4 MCH 27.3 MCHC 31.2 L RDW 15.2 H RDW Differential 48.6 H Plt Count 202 MPV 9.4 Immature Gran % (Auto) 0.600 Neut % (Auto) 95.9 H Lymph % (Auto) 2.2 L Piatt % (Auto) 1.2 Eos % (Auto) 0.0 Baso % (Auto) 0.1 Absolute Neuts (auto) 15.8 H Absolute Lymphs (auto) 0.36 L Total Counted Not Reportable Sodium 137 Potassium 4.3 Chloride 102 Carbon Dioxide 25.0 Anion Gap 10 BUN 24 H Creatinine 1.53 H Estim Creat Clear Calc 27.06 Est GFR (MDRD) Af Amer 56 L Est GFR (MDRD) Non-Af 46 L BUN/Creatinine Ratio 15.7 Glucose 332 H Calcium 8.5 Total Bilirubin 0.50 AST 12 L ALT 22 Alkaline Phosphatase 43 L Troponin I 0.048 H Total Protein 6.6 Albumin 3.2 Globulin 3.4 Albumin/Globulin Ratio 0.9 Triglycerides 42 Cholesterol 104 LDL Cholesterol 15 VLDL Cholesterol 8 HDL Cholesterol 81 11/04/17 05:10 WBC RBC Hgb Hct MCV MCH MCHC RDW RDW Differential Plt Count MPV Immature Gran % (Auto) Neut % (Auto) Lymph % (Auto) Piatt % (Auto) Eos % (Auto) Baso % (Auto) Absolute Neuts (auto) Absolute Lymphs (auto) Total Counted Sodium Potassium Chloride Carbon Dioxide Anion Gap BUN Creatinine Estim Creat Clear Calc Est GFR (MDRD) Af Amer Est GFR (MDRD) Non-Af BUN/Creatinine Ratio Glucose Calcium Total Bilirubin AST ALT Alkaline Phosphatase Troponin I 0.042 Total Protein Albumin Globulin Albumin/Globulin Ratio Triglycerides Cholesterol LDL Cholesterol VLDL Cholesterol HDL Cholesterol Assessment/Plan Hospitalist note: I am seeing this patient in conjunction with Grecia Parikh. I independently seen and examined the patient. Progress note above, laboratory data and imaging studies reviewed and I concur with the above treatment plan. Patient was admitted for worsening shortness of breath, dry cough and wheezing. Was found to have COPD exacerbation as well as indeterminate troponin. Today, he reports that his breathing is getting better compared to yesterday. Still complaining of cough and occasional wheezes. He denies any chest pain but complained of chest tightness. He has been afebrile, blood pressure and heart rate are stable, pulse ox is 96% on 2 L. - Physical Exam General: Alert, Oriented x3, Cooperative, moderately short of breath. HEENT: Atraumatic, PERRLA, EOMI. Neck: Supple, No JVD, Negative Carotid Bruits, Trachea Midline, Thyroid Normal. Lungs: Decreased breath sounds bilateral, bilateral expiratory wheezes, rhonchi, shortness of breath. Cardiovascular: Regular rate, Regular Rhythm, Normal S1, Normal S2, PMI Normal. Abdomen: Bowel Sounds Present, Soft, Non Tender, Non-Distended, No Hepato-splenomegaly. Extremities: No clubbing, No cyanosis, No edema Skin: No rashes, No breakdown Neurological: Neuro grossly intact Vital Signs are stable. Assessment and plan: #1 acute COPD exacerbation/chronic respiratory failure: Chest x-ray without acute findings. He is on bronchodilators and IV steroids as well as doxycycline. Respiratory panel for viruses were negative. Patient symptoms improved today. Plan to continue same treatment. #2 indeterminate troponin: Without chest pain or EKG changes. Troponin is trending down. This could be due to demand ischemia. 2D echocardiogram ordered. He is on aspirin and metoprolol. #3 other chronic medical problems: Stable, continue current medications as above. This note was generated with [employer] dictation software. It may contain incorrect words, spelling, and punctuation that were not noted in checking the note before signing.
--- NOTE | 2017-11-04 14:11 | CASEMGMT ---
SAROJ CM Assessment complete. See Link. DC Plan: home -Pt lives with daughter. Has stair chair to get from basement to main level of home. States we was fairly independent. Has Home O2 through [employer], walker and cane. -Pt states he has Palliative Care appt set up for next week @ home. Chon MINAYA RN ACM
[2017-11-04] MEDS: Mag Hydrox/Al Hydrox/Simeth 30 ML UDC PO (15:56)
--- NOTE | 2017-11-04 16:15 | EKG12_ITS ---
Test Reason : ADMISSION EKG Blood Pressure : / mmHG Vent. Rate : 084 BPM Atrial Rate : 084 BPM P-R Int : 000 ms QRS Dur : 068 ms QT Int : 348 ms P-R-T Axes : 000 -39 004 degrees QTc Int : 411 ms Normal sinus rhythm Left axis deviation Low voltage QRS ST & T wave abnormality, consider inferior ischemia Abnormal ECG When compared with ECG of 14-JAN-2017 23:22, Junctional rhythm has replaced Sinus rhythm Non-specific change in ST segment in Inferior leads T wave inversion now evident in Inferior leads Confirmed by YAHAIRA LAWRENCE ([id number]), school photograph editor CARROLL AGUIRRE ([id number]) on 11/14/2017 2:55:47 PM Referred By: TAISHA Confirmed By:YAHAIRA LAWRENCE
[2017-11-04] MEDS: Mirtazapine 15 MG Tablet 7.5 MG PO (21:58)
[2017-11-04] MEDS: traZODone 50 MG Tablet PO (21:58)
[2017-11-04] MEDS: Latanoprost 0.005% 1 Bottle 1 DRP EACH EYE (22:10)
[2017-11-05] VITALS (22 sets, daily range): BP systolic 101–158; BP diastolic 46–90; PULSE 70–98; RESP 16–22; TEMP 36.3–36.8; O2SAT 93–97
[2017-11-05] MEDS: Mag Hydrox/Al Hydrox/Simeth 30 ML UDC PO (02:31)
[2017-11-05] MEDS: Ipratropium/Albuterol Sulfate 3 ML AMPUL.NEB INHALATION ×6 (03:18→22:39)
[2017-11-05] MEDS: Dorzolamide 2% 10ml Bottle 1 DRP EACH EYE ×3 (05:42→21:41)
[2017-11-05] MEDS: 0.9% NaCl Peripheral Flush Adult/Peds IV ×2 (05:42→10:09)
[2017-11-05] MEDS: busPIRone 5 MG Tablet PO ×3 (05:42→21:40)
[2017-11-05] MEDS: Tamsulosin HCl 0.4 MG Capsule PO (10:00)
[2017-11-05] MEDS: Metoprolol Tartrate 25 MG Tablet PO ×2 (10:00→21:41)
[2017-11-05] MEDS: guaiFENesin 1,200 MG Tablet 1200 MG PO ×2 (10:00→21:41)
[2017-11-05] MEDS: Loratadine 10 MG Tablet PO (10:00)
[2017-11-05] MEDS: Venlafaxine XR 75 MG Capsule 225 MG PO (10:00)
[2017-11-05] MEDS: Pantoprazole Sodium 20 MG Tablet PO (10:00)
[2017-11-05] MEDS: Aspirin E.C. 81 MG Tablet PO (10:00)
[2017-11-05] MEDS: Montelukast 10 MG Tablet PO (10:00)
[2017-11-05] MEDS: Finasteride 5 MG Tablet PO (10:00)
[2017-11-05] MEDS: Heparin Injection (Vial) 5,000 UNIT/ML VIAL 5000 UNIT SC ×2 (10:02→21:41)
--- NOTE | 2017-11-05 11:23 | PCM.PROGNOTE ---
<Grecia Parikh - Last Filed: 11/05/17 11:31> Patient Problems: Active and Suspected Problems (Last Reviewed 07/28/17 @ 10:40 by Cathi Walls NP-Adolph) Chest pain (Acute) Subjective: Patient seen and examined. Continues to complain of intermittent chest pain. He notes improvement following nitro. Discussed with cardiology. Plan for cardiac catheterization tomorrow. Patient aware and agreeable. - Physical Exam General: Alert, Oriented x3, Cooperative, No apparent distress HEENT: Atraumatic, PERRLA, EOMI, Normocephalic Neck: Supple, No JVD, Negative Carotid Bruits Lungs: Clear to auscultation, Diminished Cardiovascular: Regular rate, Regular Rhythm, Normal S1, Normal S2, No murmurs Abdomen: Bowel Sounds Present, Soft, Non Tender, Non-Distended Extremities: No clubbing, No cyanosis, No edema, Capillary Refill Less than 3 Seconds Skin: No rashes, No breakdown Musculoskeletal: No Tenderness to Palpation of Joints or Extremities Neurological: Cranial nerves II-XII grossly intact, Neuro grossly intact Psych/Mental Status: Normal Affect, Appropriate Vital Signs Temp Pulse Resp BP Pulse Ox 97.8 F 75 18 115/68 97 11/05/17 10:00 11/05/17 10:47 11/05/17 10:00 11/05/17 10:00 11/05/17 10:00 Oxygen Flow Rate (L/min) 2 Oxygen Delivery Method Nasal Cannula Weight: 140 lb 14.006 oz Body Mass Index (BMI) 25.9 Intake and Output for Last 24 Hours 11/03/17 11/04/17 11/05/17 23:59 23:59 23:59 Intake Total 2660 / 2660 573 / 573 Output Total 1300 / 1300 1000 / 1000 Balance 1360 / 1360 -427 / -427 Microbiology Past 72 Hours 11/04/17 02:17 Respiratory Panel (PCR) - Final Mucosa - Nasopharyngeal Medical Necessity - Tobacco Use Smoking Status: Former smoker Tobacco Use: Non-smoker Assessment/Plan All Active Problems (Last Reviewed 07/28/17 @ 10:40 by Cathi Walls CUSTOM TAILOR-C) Chest pain (Acute) COPD exacerbation (Acute) COPD (chronic obstructive pulmonary disease) (Acute) 1. Acute exacerbation of COPD with chronic hypoxic respiratory failure-improved. DC IV Solu-Medrol. Transition to oral prednisone taper. Albuterol and DuoNeb aerosols. Continue doxycycline empirically given significant lung disease. Chest x-ray without acute changes. Send sputum for culture. Patient chronically wears 2 L nasal cannula at home. Continue supplement oxygen to maintain O2 at or above 90%. Respiratory panel negative. Follows with Dr. Shaffer/Cathi Walls as outpatient. Continue outpatient follow-up at discharge. 2. Indeterminate troponin-trended down. EKG without evidence of ischemia. Echocardiogram demonstrated an EF of 75%, abnormal diastolic dysfunction, mildly dilated aortic root. Cardiology consulted. N.p.o. after midnight with plans for cardiac catheterization in the morning. 3. Hypertension-stable, continue home metoprolol. 4. Chronic kidney disease stage III-stable, monitor BMP. 5. GERD-continue PPI. 6. Depression/anxiety-continue home medication. 7. BPH-continue Flomax and Proscar. 8. GLENNA-CPAP nightly. DVT prophylaxis-heparin subcu. This patient was seen by ESTEFANI Jordan under the supervision of Dr. Hudson. <Evelyn Hudson E - Last Filed: 11/05/17 14:40> - Physical Exam Vital Signs Temp Pulse Resp BP Pulse Ox 97.8 F 84 22 H 115/68 97 11/05/17 10:00 11/05/17 11:07 11/05/17 11:07 11/05/17 10:00 11/05/17 10:00 Oxygen Flow Rate (L/min) 2 Oxygen Delivery Method Nasal Cannula Weight: 140 lb 14.006 oz Body Mass Index (BMI) 25.9 Intake and Output for Last 24 Hours 11/03/17 11/04/17 11/05/17 23:59 23:59 23:59 Intake Total 2660 / 2660 1304 / 1304 Output Total 1300 / 1300 1375 / 1375 Balance 1360 / 1360 -71 / -71 Microbiology Past 72 Hours 11/04/17 02:17 Respiratory Panel (PCR) - Final Mucosa - Nasopharyngeal Assessment/Plan Hospitalist note: I am seeing this patient in conjunction with Grecia Parikh. I independently seen and examined the patient. Progress note above reviewed and I concur with the above treatment plan. Patient complains of chest pain overnight and again this morning, resolved by nitroglycerin. He mentioned that his breathing is better, still having mild dry cough. Vital signs are stable, pulse ox is maintained on 2 L which is his baseline at home. - Physical Exam General: Alert, Oriented x3, Cooperative, moderately short of breath. HEENT: Atraumatic, PERRLA, EOMI. Neck: Supple, No JVD, Negative Carotid Bruits, Trachea Midline, Thyroid Normal. Lungs: Decreased breath sounds bilateral, bilateral expiratory wheezes, rhonchi. Cardiovascular: Regular rate, Regular Rhythm, Normal S1, Normal S2, PMI Normal. Abdomen: Bowel Sounds Present, Soft, Non Tender, Non-Distended, No Hepato-splenomegaly. Extremities: No clubbing, No cyanosis, No edema Skin: No rashes, No breakdown Neurological: Neuro grossly intact Vital Signs are stable. Assessment and plan: #1 acute COPD exacerbation/chronic respiratory failure: Chest x-ray without acute findings. He is on bronchodilators and IV steroids as well as doxycycline. Respiratory panel for viruses were negative. Patient symptoms improved today. Plan to continue same treatment. #2 indeterminate troponin/chest pain: No EKG changes. Troponin is trending down. This could be due to demand ischemia. 2D echocardiogram revealed ejection fraction 75%. He is on aspirin and metoprolol. Cardiology consulted. #3 other chronic medical problems: Stable, continue current medications as above. This note was generated with [employer] dictation software. It may contain incorrect words, spelling, and punctuation that were not noted in checking the note before signing. Code Visit Inpatient E&M: 41027 Subs Hosp L2
--- NOTE | 2017-11-05 11:31 | PN_ITS ---
<Grecia Parikh - Last Filed: 11/05/17 11:31> Patient Problems: Active and Suspected Problems (Last Reviewed 07/28/17 @ 10:40 by Cathi Walls NP-Adolph) Chest pain (Acute) Subjective: Patient seen and examined. Continues to complain of intermittent chest pain. He notes improvement following nitro. Discussed with cardiology. Plan for cardiac catheterization tomorrow. Patient aware and agreeable. - Physical Exam General: Alert, Oriented x3, Cooperative, No apparent distress HEENT: Atraumatic, PERRLA, EOMI, Normocephalic Neck: Supple, No JVD, Negative Carotid Bruits Lungs: Clear to auscultation, Diminished Cardiovascular: Regular rate, Regular Rhythm, Normal S1, Normal S2, No murmurs Abdomen: Bowel Sounds Present, Soft, Non Tender, Non-Distended Extremities: No clubbing, No cyanosis, No edema, Capillary Refill Less than 3 Seconds Skin: No rashes, No breakdown Musculoskeletal: No Tenderness to Palpation of Joints or Extremities Neurological: Cranial nerves II-XII grossly intact, Neuro grossly intact Psych/Mental Status: Normal Affect, Appropriate Vital Signs Temp Pulse Resp BP Pulse Ox 97.8 F 75 18 115/68 97 11/05/17 10:00 11/05/17 10:47 11/05/17 10:00 11/05/17 10:00 11/05/17 10:00 Oxygen Flow Rate (L/min) 2 Oxygen Delivery Method Nasal Cannula Weight: 140 lb 14.006 oz Body Mass Index (BMI) 25.9 Intake and Output for Last 24 Hours 11/03/17 11/04/17 11/05/17 23:59 23:59 23:59 Intake Total 2660 / 2660 573 / 573 Output Total 1300 / 1300 1000 / 1000 Balance 1360 / 1360 -427 / -427 Microbiology Past 72 Hours 11/04/17 02:17 Respiratory Panel (PCR) - Final Mucosa - Nasopharyngeal Medical Necessity - Tobacco Use Smoking Status: Former smoker Tobacco Use: Non-smoker Assessment/Plan All Active Problems (Last Reviewed 07/28/17 @ 10:40 by Cathi Walls PACKING MACHINE OPERATOR-C) Chest pain (Acute) COPD exacerbation (Acute) COPD (chronic obstructive pulmonary disease) (Acute) 1. Acute exacerbation of COPD with chronic hypoxic respiratory failure- improved. DC IV Solu-Medrol. Transition to oral prednisone taper. Albuterol and DuoNeb aerosols. Continue doxycycline empirically given significant lung disease. Chest x-ray without acute changes. Send sputum for culture. Patient chronically wears 2 L nasal cannula at home. Continue supplement oxygen to maintain O2 at or above 90%. Respiratory panel negative. Follows with Dr. Shaffer/Cathi Walls as outpatient. Continue outpatient follow-up at discharge. 2. Indeterminate troponin-trended down. EKG without evidence of ischemia. Echocardiogram demonstrated an EF of 75%, abnormal diastolic dysfunction, mildly dilated aortic root. Cardiology consulted. N.p.o. after midnight with plans for cardiac catheterization in the morning. 3. Hypertension-stable, continue home metoprolol. 4. Chronic kidney disease stage III-stable, monitor BMP. 5. GERD-continue PPI. 6. Depression/anxiety-continue home medication. 7. BPH-continue Flomax and Proscar. 8. GLENNA-CPAP nightly. DVT prophylaxis-heparin subcu. This patient was seen by ESTEFANI Jordan under the supervision of Dr. Hudson. <Evelyn Hudson E - Last Filed: 11/05/17 14:40> - Physical Exam Vital Signs Temp Pulse Resp BP Pulse Ox 97.8 F 84 22 H 115/68 97 11/05/17 10:00 11/05/17 11:07 11/05/17 11:07 11/05/17 10:00 11/05/17 10:00 Oxygen Flow Rate (L/min) 2 Oxygen Delivery Method Nasal Cannula Weight: 140 lb 14.006 oz Body Mass Index (BMI) 25.9 Intake and Output for Last 24 Hours 11/03/17 11/04/17 11/05/17 23:59 23:59 23:59 Intake Total 2660 / 2660 1304 / 1304 Output Total 1300 / 1300 1375 / 1375 Balance 1360 / 1360 -71 / -71 Microbiology Past 72 Hours 11/04/17 02:17 Respiratory Panel (PCR) - Final Mucosa - Nasopharyngeal Assessment/Plan Hospitalist note: I am seeing this patient in conjunction with Grecia Parikh. I independently seen and examined the patient. Progress note above reviewed and I concur with the above treatment plan. Patient complains of chest pain overnight and again this morning, resolved by nitroglycerin. He mentioned that his breathing is better, still having mild dry cough. Vital signs are stable, pulse ox is maintained on 2 L which is his baseline at home. - Physical Exam General: Alert, Oriented x3, Cooperative, moderately short of breath. HEENT: Atraumatic, PERRLA, EOMI. Neck: Supple, No JVD, Negative Carotid Bruits, Trachea Midline, Thyroid Normal. Lungs: Decreased breath sounds bilateral, bilateral expiratory wheezes, rhonchi. Cardiovascular: Regular rate, Regular Rhythm, Normal S1, Normal S2, PMI Normal. Abdomen: Bowel Sounds Present, Soft, Non Tender, Non-Distended, No Hepato- splenomegaly. Extremities: No clubbing, No cyanosis, No edema Skin: No rashes, No breakdown Neurological: Neuro grossly intact Vital Signs are stable. Assessment and plan: #1 acute COPD exacerbation/chronic respiratory failure: Chest x-ray without acute findings. He is on bronchodilators and IV steroids as well as doxycycline. Respiratory panel for viruses were negative. Patient symptoms improved today. Plan to continue same treatment. #2 indeterminate troponin/chest pain: No EKG changes. Troponin is trending down. This could be due to demand ischemia. 2D echocardiogram revealed ejection fraction 75%. He is on aspirin and metoprolol. Cardiology consulted. #3 other chronic medical problems: Stable, continue current medications as above. This note was generated with [employer] dictation software. It may contain incorrect words, spelling, and punctuation that were not noted in checking the note before signing. Code Visit Inpatient E&M: 48078 Subs Hosp L2
--- NOTE | 2017-11-05 11:45 | PCM.CONS.C ---
Problem List (1) Chest pain Status: Acute Qualifiers: Chest pain type: precordial pain Qualified Code(s): R07.2 - Precordial pain Reason for Consult Date of Consultation: 11/05/17 History of Present Illness: The patient is a 82 year old male with advanced COPD, Diet controlled Diabetes, HTN who experienced retrosternal dull pain at rest 4-5 days ago, which he continues to have intermittently since admission. His EKG showed no significant abnormality. The Echocardiogram showed preserved LV systolic function and the Troponin was only mildly elevated. How ever, the patient is concerned and wishes to know more. Past Medical History Allergies/Adverse Reactions: Allergies No Known Allergies Allergy (Verified 11/03/17 22:48) Home Medications: Ambulatory Orders Medication Instructions Recorded Albuterol IH (ProAir) [Proair Hfa] 2 puff INHALATION Q4H PRN PRN 10/20/16 Aspirin [Aspirin EC] 81 mg PO DAILY 10/20/16 Dorzolamide HCl [Trusopt] 1 drp OP TID 10/20/16 Finasteride [Proscar] 5 mg PO DAILY 10/20/16 Latanoprost 1 drp OP QHS 10/20/16 Metoprolol Tartrate 25 mg PO BID 10/20/16 Mirtazapine 7.5 mg PO QHS 10/20/16 Montelukast [Singulair] 10 mg PO DAILY 10/20/16 Omeprazole 20 mg PO DAILY 10/20/16 Tamsulosin HCl [Flomax] 0.4 mg PO DAILY 10/20/16 Tiotropium [place] [Spiriva 18 MCG] 2 puff INHALATION DAILY 10/20/16 Venlafaxine HCl [Effexor Xr] 225 mg PO DAILY 10/20/16 busPIRone [Buspar] 5 mg PO TID 10/20/16 traZODone [Desyrel] 50 mg PO QHS 10/20/16 Guaifenesin [Mucinex] 400 mg PO Q4H PRN PRN 01/15/17 Cholecalciferol (VIT D3) [Vitamin 4,000 unit PO DAILY 04/09/17 D3] Docusate Sodium [Colace] 100 mg PO BID PRN 04/09/17 prednisone 10 mg tablet 10 mg PO QDAY #90 tab 05/02/17 budesonide-formoterol HFA 160 2 puff INHALATION BID 07/27/17 mcg-4.5 mcg/actuation aerosol inhaler loratadine 10 mg capsule 10 mg PO QDAY #30 cap 07/27/17 albuterol sulfate 2.5 mg/3 mL 2.5 mg INHALATION Q4H PRN #75 ml 11/01/17 (0.083 %) solution for nebulization Past Medical History (Chronic Problems): Chronic Problems (Last Reviewed 07/28/17 @ 10:40 by ESTEFANI Helm) Asthma, severe persistent (Chronic) Stage 4 very severe COPD by GOLD classification (Chronic) FEV1 45% COPD (chronic obstructive pulmonary disease) (Chronic) SOB (shortness of breath) (Chronic) Chronic respiratory failure with hypoxia (Chronic) 2L NC baseline home usage. BPH (benign prostatic hypertrophy) (Chronic) Hypertension (Chronic) Anxiety disorder (Chronic) Surgical History: appendectomy, cataract Psychiatric History: Anxiety, Depression - *Family History Maternal Family History: Family History (Last Reviewed 07/28/17 @ 10:40 by ESTEFANI Helm) Grandfather Cancer History Items: - - mother lived to age 101 Paternal Family History: Family History (Last Reviewed 07/28/17 @ 10:40 by ESTEFANI Helm) Grandfather Cancer History Items: Stroke - CVA in older years, at age 90, - - father lived to be 90 Offspring Family History: Family History (Last Reviewed 07/28/17 @ 10:40 by ESTEFANI Helm) Grandfather Cancer History Items: No pertinent history Lives: With Family - Lives with his daughter and her family. Smoking Status: Former smoker Tobacco Use: Non-smoker Alcohol: None Drugs: None Review of Systems - Review of Systems Cardiovascular: Reports: Chest Discomfort at Rest - 12 systems reviewed, pertinent postive and negative ones are per HPI. Objective: Vital Signs Temp Pulse Resp BP Pulse Ox 97.8 F 75 18 115/68 97 11/05/17 10:00 11/05/17 10:47 11/05/17 10:00 11/05/17 10:00 11/05/17 10:00 Oxygen Flow Rate (L/min) 2 Oxygen Delivery Method Nasal Cannula Weight: 63.9 kg Body Mass Index (BMI) 25.9 Intake and Output for Last 24 Hours 11/03/17 11/04/17 11/05/17 23:59 23:59 23:59 Intake Total 2660 / 2660 573 / 573 Output Total 1300 / 1300 1000 / 1000 Balance 1360 / 1360 -427 / -427 General: Oriented x 3, Cooperative, No Acute Distress Oral: - - No teeth Neck: Supple, No JVD Lungs: Expiratory Wheezes-Jm Cardiovascular: Regular Rhythm, No Murmurs Vascular: No Carotid Bruits Abdomen: Non Tender, Distended Extremities: No Cyanosis, No edema Neurological: No Focal Motor or Sensory Deficit Psych/Mental Status: Appropriate Rhythm: EKG: ECHO: Stress Test: Cardiac Cath: PCI: CT Surgery: Holter monitor: EPS: PPM: CXR: Chest CT Scan: Assessment/Plan NSTEMI, intermittent chest pain, high CAD risk, patient's inclination to know more about his heart. Invasive v noninvasive work up were discussed. He opted for the latter. Will Cath at AM. Further recommendations are to follow.
[2017-11-05] MEDS: traZODone 50 MG Tablet PO (21:41)
[2017-11-05] MEDS: Doxycycline 100 MG CAPSULE PO (21:41)
[2017-11-05] MEDS: Mirtazapine 15 MG Tablet 7.5 MG PO (21:41)
[2017-11-05] MEDS: Latanoprost 0.005% 1 Bottle 1 DRP EACH EYE (21:42)
[2017-11-06] VITALS (32 sets, daily range): BP systolic 97–158; BP diastolic 46–84; PULSE 73–118; RESP 16–20; TEMP 36.4–37.1; O2SAT 95–99
[2017-11-06 00:22] LABS: Bacteria 0 SEEN /hpf (None Seen); Mucous, Urine 0 SEEN /hpf (<or=2+)
[2017-11-06 00:26] LABS: Color, Urine Yellow (Yellow); Glucose, Dipstick 1000 mg/dl (Normal); Ketone-Dipstick 5 mg/dl (Negative); Leukocyte Esterase-Dipstick 25 /ul (Negative); Nitrite-Dipstick Negative (Negative); Occult Blood-Urine 25 /ul (Negative); Protein-Dipstick 15 mg/dl (Negative); Specific Gravity, Urine 1.015 (1.002-1.030); Urine Bilirubin Dipstick Negative (Negative); Urine Clarity Clear (Clear); Urine Urobilinogen Normal (Normal)
[2017-11-06 00:42] LABS: Red Blood Cells-Urine 0-5 SEEN /hpf (0-5); Squamous Epithelial Cells - UA 0-5 SEEN /hpf (0-5); White Blood Cells 0-5 SEEN /hpf (0-5)
[2017-11-06] MEDS: Ipratropium/Albuterol Sulfate 3 ML AMPUL.NEB INHALATION ×5 (03:31→22:10)
[2017-11-06] MEDS: Dorzolamide 2% 10ml Bottle 1 DRP EACH EYE ×3 (05:50→21:28)
[2017-11-06] MEDS: busPIRone 5 MG Tablet PO ×3 (05:50→21:28)
[2017-11-06] MEDS: Aspirin E.C. 81 MG Tablet PO (06:12)
[2017-11-06 06:51] LABS: Hematocrit 41.1 % (40-54); Hemoglobin 12.8 g/dl (13.0-16.5); Mean Corp Hgb Conc 31.1 g/gl (32-36); Mean Corpuscular Hgb 27.8 pg (27.0-32.0); Mean Corpuscular Volume 89.2 fL (80-94); Mean Platelet Vol. 9.7 fl (6.2-12.0); Platelet Count 181 K/mm3 (150-450); RBC Distribution Width CV 15.7 % (11.6-14.6); RBC Distribution Width SD 50.7 fl (35.1-43.9); Red Blood Count 4.61 M/mm3 (4.6-6.2)
[2017-11-06 06:53] LABS: Scan Indicated on CBC? Y/N NO
[2017-11-06 06:57] LABS: International Normalized Ratio 1.1; Prothrombin Time (Protime)PT. 14.2 SECONDS (11.7-14.9)
[2017-11-06 06:58] LABS: Partial Thromboplast Time 32.3 Seconds (24.1-36.2)
[2017-11-06 07:15] LABS: Anion Gap 10 (5-15); BUN 32 mg/dL (7-18); BUN/Creat Ratio 24.6 RATIO (10-20); Calcium,Total 8.5 mg/dL (8.5-10.1); Chloride 107 mmol/L (98-107); EST Glomerular Filtration Rate 56 mL/min (>60); Est Glom Filt Rate - Afr Amer 68 mL/min (>60); Estimated Creatinine Clearance 31.85 ml/min; Glucose 168 mg/dL (74-106); Potassium 4.6 mmol/L (3.5-5.1); Sodium Level 141 mmol/L (136-145)
--- NOTE | 2017-11-06 08:58 | CPS ---
PEP therapy not done at this time, patient still sleepy.
--- NOTE | 2017-11-06 11:19 | CL.I_ITS ---
Patient Name: MARIA LUZ MILLIGAN Study Date: 11/06/2017 Performing: Jim Israel MD Ht: 62 inches 157 cm : 1935 Wt: 141.3 lbs 64 kg Age: 82 Gender: male BSA: 1.64 PROCEDURE(S) PERFORMED ET55-SVR/COR CLINICAL PROFILE AND CO-MORBIDITIES Indications: ACS <= 24 hrs Heart Failure: None Stress/Imaging Stress/Image Study Performed: No Angina Classification Anginal Classification w/in 2 Weeks: CCS III CAD Presentations: Non-STEMI. 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 Rowan and patient family DESCRIPTION OF PROCEDURE The patient arrived to the procedure lab. The risks and benefits of the procedure as well as a full d escription of our services here and lack of surgical backup were fully explained to the patient and/o r their significant other prior to the catheterization. The Timeout was completed, verifying the giselle ect patient and procedure. The patient's procedural site was prepped and draped in the usual fashion. Local anesthetic was given subcutaneously to right radial region with Lidocaine 2%. Local anesthetic was given subcutaneously to right groin region with Lidocaine 2%. Using a modified Seldinger techniq ue, arterial access was obtained via the right radial artery, a 6Fr sheath was inserted., arterial ac cess was obtained via the right femoral artery, a 4Fr sheath was inserted. Right Coronary Artery merrick ective angiography was then performed in multiple views using a 4 Fr. JR4 catheter. Left Coronary Art tone selective angiography was performed in multiple views using a 4 Fr. JL4 catheter The arterial sheath was pulled and a TR Band was applied for hemostasis w14ml air. The arterial sheat h was pulled and manual compression applied until hemostasis is achieved. CORONARY ANGIOGRAPHY DOMINANCE: Right Dominant LEFT HEART ASSESSMENT LV wall motion not assessed some access issues with the RFA access, leading to small hematoma in the rt groin area severe tortuosity of the right brachial/radial artery with a loop in the right elbow area, unable to pass catheter through this area. LEFT MAIN: short LM, Mild luminal irregularities LEFT ANTERIOR DECENDING ARTERY: mild tortuosity PROX LAD: Mild luminal irregularities DISTAL LAD: Mild luminal irregularities DIAGONAL 1: Ostial - Mild luminal irregularities CIRCUMFLEX ARTERY: Mild luminal irregularities OM 1: Proximal - Mild luminal irregularities RIGHT CORONARY ARTERY: PROX RCA: Mild luminal irregularities, 40 % Stenosis MID RCA: mid RCA has moderate calcification with 2 tandem lesions, the first lesion is eccentric at 4 0% and the 2nd lesion in the mid RCA is at 90% short lesion DISTAL RCA: Mild luminal irregularities RT PLV: Mild luminal irregularities RT PDA: Proximal - Mild luminal irregularities INTERVENTION INFORMATION COMPLICATIONS No Complications PROCEDURE MEDICATIONS Oxygen: 2 L/min via nasal cannula Plavix 300 mg PO 11/06/2017 10:36:59 SUMMARY OF HEMODYNAMIC DATA Time AIR REST ECG 09:46:02 AO 139/77 (104) SA 10:20:11 Signed By Jim Israel MD On 11/06/2017 11:18:31 Jim Israel MD
--- NOTE | 2017-11-06 12:10 | PCM.PROGNOTE ---
<Grecia Parikh - Last Filed: 11/06/17 12:17> Patient Problems: Active and Suspected Problems (Last Reviewed 07/28/17 @ 10:40 by Cathi Walls NP-Adolph) Chest pain (Acute) Subjective: Patient seen and examined. Denies chest pain overnight. Resting comfortable. Denies other complaints. - Physical Exam General: Alert, Oriented x3, Cooperative HEENT: Atraumatic, PERRLA, EOMI, Normocephalic Neck: Supple, No JVD, Negative Carotid Bruits Lungs: Clear to auscultation, Normal air movement Cardiovascular: Regular rate, Regular Rhythm, Normal S1, Normal S2, No murmurs Abdomen: Bowel Sounds Present, Soft, Non Tender, Non-Distended Extremities: No clubbing, No cyanosis, No edema, Capillary Refill Less than 3 Seconds Skin: No rashes, No breakdown Musculoskeletal: No Tenderness to Palpation of Joints or Extremities Neurological: Cranial nerves II-XII grossly intact, Neuro grossly intact Psych/Mental Status: Normal Affect, Appropriate Vital Signs Temp Pulse Resp BP Pulse Ox 97.9 F 92 18 138/79 H 95 11/06/17 09:30 11/06/17 11:18 11/06/17 09:30 11/06/17 09:30 11/06/17 09:30 Oxygen Flow Rate (L/min) 2 Oxygen Delivery Method Nasal Cannula Weight: 140 lb 14.006 oz Body Mass Index (BMI) 25.9 Intake and Output for Last 24 Hours 11/04/17 11/05/17 11/06/17 23:59 23:59 23:59 Intake Total 2660 / 2660 1784 / 1784 560 / 560 Output Total 1300 / 1300 1375 / 1375 1000 / 1000 Balance 1360 / 1360 409 / 409 -440 / -440 Microbiology Past 72 Hours 11/04/17 02:17 Respiratory Panel (PCR) - Final Mucosa - Nasopharyngeal Laboratory Tests Past 24 Hrs 11/06/17 11/06/17 11/06/17 00:00 05:35 05:35 WBC 15.0 H RBC 4.61 Hgb 12.8 L Hct 41.1 MCV 89.2 MCH 27.8 MCHC 31.1 L RDW 15.7 H RDW Differential 50.7 H Plt Count 181 MPV 9.7 PT 14.2 INR 1.1 APTT 32.3 Sodium Potassium Chloride Carbon Dioxide Anion Gap BUN Creatinine Estim Creat Clear Calc Est GFR (MDRD) Af Amer Est GFR (MDRD) Non-Af BUN/Creatinine Ratio Glucose Calcium Urine Color Yellow Urine Clarity Clear Urine pH 6.0 Ur Specific [place] 1.015 Urine Protein 15 H Urine Glucose (UA) 1000 H Urine Ketones 5 H Urine Occult Blood 25 H Urine Nitrite Negative Urine Bilirubin Negative Urine Urobilinogen Normal Ur Leukocyte Esterase 25 H Urine RBC 0-5 SEEN Urine WBC 0-5 SEEN Ur Squamous Epith Cells 0-5 SEEN Urine Bacteria 0 SEEN Urine Mucus 0 SEEN 11/06/17 05:35 WBC RBC Hgb Hct MCV MCH MCHC RDW RDW Differential Plt Count MPV PT INR APTT Sodium 141 Potassium 4.6 Chloride 107 Carbon Dioxide 24.0 Anion Gap 10 BUN 32 H Creatinine 1.30 Estim Creat Clear Calc 31.85 Est GFR (MDRD) Af Amer 68 Est GFR (MDRD) Non-Af 56 L BUN/Creatinine Ratio 24.6 H Glucose 168 H Calcium 8.5 Urine Color Urine Clarity Urine pH Ur Specific [place] Urine Protein Urine Glucose (UA) Urine Ketones Urine Occult Blood Urine Nitrite Urine Bilirubin Urine Urobilinogen Ur Leukocyte Esterase Urine RBC Urine WBC Ur Squamous Epith Cells Urine Bacteria Urine Mucus Medical Necessity - Tobacco Use Smoking Status: Former smoker Tobacco Use: Non-smoker Assessment/Plan All Active Problems (Last Reviewed 07/28/17 @ 10:40 by Cathi Walls, LEASE ANALYST-C) Chest pain (Acute) COPD exacerbation (Acute) COPD (chronic obstructive pulmonary disease) (Acute) 1. Acute exacerbation of COPD with chronic hypoxic respiratory failure-improved. Continue oral prednisone taper. Albuterol and DuoNeb aerosols. Continue doxycycline empirically given significant lung disease. Chest x-ray without acute changes. Send sputum for culture. Patient chronically wears 2 L nasal cannula at home. Continue supplement oxygen to maintain O2 at or above 90%. Respiratory panel negative. Follows with Dr. Shaffer/Cathi Walls as outpatient. Continue outpatient follow-up at discharge. 2. Indeterminate troponin/CAD- EKG without evidence of ischemia. Echocardiogram demonstrated an EF of 75%, abnormal diastolic dysfunction, mildly dilated aortic root. Cardiology consulted. Patient underwent cardiac catheterization this morning, 11/06/2017 which showed severe CAD mid RCA with moderate calcification with 2 lesions, first lesion 40% and second lesion 90% stenosis. Plan on PCI of the RCA tomorrow morning. Patient placed on heparin drip. Continue aspirin, statin initiated. 3. Hypertension-stable, continue home metoprolol. 4. Chronic kidney disease stage III-stable, monitor BMP. Gentle IV fluids given exposure to contrast. 5. GERD-continue PPI. 6. Depression/anxiety-continue home medication. 7. BPH-continue Flomax and Proscar. 8. GLENNA-CPAP nightly. DVT prophylaxis-heparin subcu. This patient was seen by ESTEFANI Jordan under the supervision of Dr. Hudson. <Evelyn Hudson E - Last Filed: 11/06/17 12:38> - Physical Exam Vital Signs Temp Pulse Resp BP Pulse Ox 97.9 F 92 18 138/79 H 95 11/06/17 09:30 11/06/17 11:18 11/06/17 09:30 11/06/17 09:30 11/06/17 09:30 Oxygen Flow Rate (L/min) 2 Oxygen Delivery Method Nasal Cannula Weight: 140 lb 14.006 oz Body Mass Index (BMI) 25.9 Intake and Output for Last 24 Hours 11/04/17 11/05/17 11/06/17 23:59 23:59 23:59 Intake Total 2660 / 2660 1784 / 1784 560 / 560 Output Total 1300 / 1300 1375 / 1375 1000 / 1000 Balance 1360 / 1360 409 / 409 -440 / -440 Microbiology Past 72 Hours 11/04/17 02:17 Respiratory Panel (PCR) - Final Mucosa - Nasopharyngeal Laboratory Tests Past 24 Hrs 11/06/17 11/06/17 11/06/17 00:00 05:35 05:35 WBC 15.0 H RBC 4.61 Hgb 12.8 L Hct 41.1 MCV 89.2 MCH 27.8 MCHC 31.1 L RDW 15.7 H RDW Differential 50.7 H Plt Count 181 MPV 9.7 PT 14.2 INR 1.1 APTT 32.3 Sodium Potassium Chloride Carbon Dioxide Anion Gap BUN Creatinine Estim Creat Clear Calc Est GFR (MDRD) Af Amer Est GFR (MDRD) Non-Af BUN/Creatinine Ratio Glucose Calcium Urine Color Yellow Urine Clarity Clear Urine pH 6.0 Ur Specific [place] 1.015 Urine Protein 15 H Urine Glucose (UA) 1000 H Urine Ketones 5 H Urine Occult Blood 25 H Urine Nitrite Negative Urine Bilirubin Negative Urine Urobilinogen Normal Ur Leukocyte Esterase 25 H Urine RBC 0-5 SEEN Urine WBC 0-5 SEEN Ur Squamous Epith Cells 0-5 SEEN Urine Bacteria 0 SEEN Urine Mucus 0 SEEN 11/06/17 05:35 WBC RBC Hgb Hct MCV MCH MCHC RDW RDW Differential Plt Count MPV PT INR APTT Sodium 141 Potassium 4.6 Chloride 107 Carbon Dioxide 24.0 Anion Gap 10 BUN 32 H Creatinine 1.30 Estim Creat Clear Calc 31.85 Est GFR (MDRD) Af Amer 68 Est GFR (MDRD) Non-Af 56 L BUN/Creatinine Ratio 24.6 H Glucose 168 H Calcium 8.5 Urine Color Urine Clarity Urine pH Ur Specific [place] Urine Protein Urine Glucose (UA) Urine Ketones Urine Occult Blood Urine Nitrite Urine Bilirubin Urine Urobilinogen Ur Leukocyte Esterase Urine RBC Urine WBC Ur Squamous Epith Cells Urine Bacteria Urine Mucus Assessment/Plan Hospitalist note: I am seeing this patient in conjunction with Grecia Parikh. I independently seen and examined the patient. Progress note above reviewed and I concur with the above treatment plan. Today, patient denies any chest pain. Shortness of breath stable, slightly worsens upon ambulation but seems to be at his baseline. Vital signs are stable. - Physical Exam General: Alert, Oriented x3, Cooperative, moderately short of breath. HEENT: Atraumatic, PERRLA, EOMI. Neck: Supple, No JVD, Negative Carotid Bruits, Trachea Midline, Thyroid Normal. Lungs: Decreased breath sounds bilateral, scattered rhonchi, no wheezing or rales.. Cardiovascular: Regular rate, Regular Rhythm, Normal S1, Normal S2, PMI Normal. Abdomen: Bowel Sounds Present, Soft, Non Tender, Non-Distended, No Hepato-splenomegaly. Extremities: No clubbing, No cyanosis, No edema Skin: No rashes, No breakdown Neurological: Neuro grossly intact Vital Signs are stable. Assessment and plan: #1 acute COPD exacerbation/chronic respiratory failure: Chest x-ray without acute findings. He is on bronchodilators and oral prednisone as well as doxycycline. Respiratory panel for viruses were negative. Patient symptoms improved today, he is down to 2 L of oxygen, improved. Plan to continue same treatment. #2 Non-ST elevation CA: EKG without acute ischemic changes. Troponin is trending down. Status post cardiac catheterization that revealed severe single-vessel disease of the mid RCA, no intervention performed today. Plan for staged PCI of the RCA tomorrow. 2D echocardiogram revealed ejection fraction 75%. He is on aspirin, statins, IV heparin drip and metoprolol. Plan for repeat cardiac catheterization and staged PCI tomorrow. #3 other chronic medical problems: Stable, continue current medications as above. This note was generated with [employer] dictation software. It may contain incorrect words, spelling, and punctuation that were not noted in checking the note before signing. Code Visit Inpatient E&M: 40882 Subs Hosp L2
[2017-11-06] MEDS: Loratadine 10 MG Tablet PO (12:11)
[2017-11-06] MEDS: Doxycycline 100 MG CAPSULE PO ×2 (12:11→21:28)
[2017-11-06] MEDS: Tamsulosin HCl 0.4 MG Capsule PO (12:11)
[2017-11-06] MEDS: Venlafaxine XR 75 MG Capsule 225 MG PO (12:11)
[2017-11-06] MEDS: predniSONE 10 MG Tablet 30 MG PO (12:11)
[2017-11-06] MEDS: guaiFENesin 1,200 MG Tablet 1200 MG PO ×2 (12:12→21:28)
[2017-11-06] MEDS: Montelukast 10 MG Tablet PO (12:12)
[2017-11-06] MEDS: Finasteride 5 MG Tablet PO (12:12)
[2017-11-06] MEDS: Pantoprazole Sodium 20 MG Tablet PO (12:12)
[2017-11-06] MEDS: 0.9% Normal Saline 1,000 ML 100 ML IV ×2 (12:12→16:35)
--- NOTE | 2017-11-06 12:32 | NURSING ---
pt arrived to unit from lab director with Heparin Gtt infusing @ 10 ml/hr, pt was given 4500 unit bolus in lab director as well.
--- NOTE | 2017-11-06 17:07 | CPS ---
Patient recovering from heart cath, PEP therapy held at this time.
--- NOTE | 2017-11-06 17:10 | NURSING ---
post heart cath bedrest up at this time. Pt ambulated only to recliner d/t SOB with exertion. No signs of bleeding at this time.
[2017-11-06 17:33] LABS: Partial Thromboplast Time 178.4 Seconds (24.1-36.2)
[2017-11-06 18:10] LABS: Partial Thromboplast Time 107.2 Seconds (24.1-36.2)
--- NOTE | 2017-11-06 18:23 | NURSING ---
This RN attempted to change tegaderm dressing @ 1715, upon pulling off tegaderm, IV came out. Held pressure for 1/2 hour before bleeding would stop. Finally stopped at 1750. New IV started by charge entry. SIGNAL WORKER HELPER notified of elevated aPTT results & bleeding site, ordered for redraw of aPTT.
[2017-11-06] MEDS: HEPARIN/D5w 25,000 UNITS 25,000 UNITS/250 ML IV.SOLN. 7 UNITS IV (19:30)
[2017-11-06] MEDS: traZODone 50 MG Tablet PO (21:28)
[2017-11-06] MEDS: Mirtazapine 15 MG Tablet 7.5 MG PO (21:28)
[2017-11-06] MEDS: Metoprolol Tartrate 25 MG Tablet PO (21:28)
[2017-11-06] MEDS: Latanoprost 0.005% 1 Bottle 1 DRP EACH EYE (21:29)
[2017-11-06] MEDS: Atorvastatin Calcium 40 MG Tablet PO (21:31)
[2017-11-07] VITALS (33 sets, daily range): BP systolic 108–172; BP diastolic 49–116; PULSE 67–94; RESP 16–32; TEMP 35.8–37.1; O2SAT 96–100
[2017-11-07] MEDS: Heparin Injection (Vial) 5,000 UNIT/ML VIAL IV (00:34)
[2017-11-07] MEDS: 0.9% Normal Saline 1,000 ML 100 ML IV ×2 (00:39→19:09)
[2017-11-07] MEDS: Ipratropium/Albuterol Sulfate 3 ML AMPUL.NEB INHALATION ×5 (03:30→23:07)
[2017-11-07 06:27] LABS: Hematocrit 34.6 % (40-54); Hemoglobin 10.9 g/dl (13.0-16.5); International Normalized Ratio 1.1; Mean Corp Hgb Conc 31.5 g/gl (32-36); Mean Corpuscular Hgb 27.9 pg (27.0-32.0); Mean Corpuscular Volume 88.5 fL (80-94); Mean Platelet Vol. 9.4 fl (6.2-12.0); Platelet Count 190 K/mm3 (150-450); Prothrombin Time (Protime)PT. 14.1 SECONDS (11.7-14.9); RBC Distribution Width CV 15.4 % (11.6-14.6); RBC Distribution Width SD 49.7 fl (35.1-43.9); Red Blood Count 3.91 M/mm3 (4.6-6.2); White Blood Count 9.8 K/mm3 (4.4-11.0)
[2017-11-07] MEDS: Metoprolol Tartrate 25 MG Tablet PO ×2 (06:29→21:16)
[2017-11-07] MEDS: busPIRone 5 MG Tablet PO ×3 (06:29→21:16)
[2017-11-07] MEDS: Aspirin E.C. 81 MG Tablet PO (06:29)
[2017-11-07] MEDS: Dorzolamide 2% 10ml Bottle 1 DRP EACH EYE ×3 (06:30→21:18)
[2017-11-07 06:32] LABS: Differential Indicated MANUAL DIFF; POSITIVE COUNT YES; POSITIVE DIFFERENTIAL NO; POSITIVE MORPHOLOGY YES; Partial Thromboplast Time 68.2 Seconds (24.1-36.2)
[2017-11-07 06:53] LABS: Lymphocyte 10 % (19-41); Metamyelocyte 5 % (0-1); Monocyte 4 % (0-10); Neutrophil-Band 2 % (0-5); Neutrophil-Segmented 79 % (47-70); Platelet Estimate ADEQUATE (ADEQ); Red Cell Morphology NORM C+C NORMAL (NORM C&C); Total Cells Counted 100 (MANUAL DIFF)
[2017-11-07 06:54] LABS: Absolute Lymphocyte Count 0.98 X10^3/ul (0.83-4.51); Absolute Neutrophil Count 7.9 X10^3/uL (2.0-7.7); Lymphocyte # 0.98 X10^3/ul (4.0); Neutrophil # 7.94 X10^3/uL (2.7-7.7)
[2017-11-07 06:57] LABS: Anion Gap 9 (5-15); BUN 22 mg/dL (7-18); BUN/Creat Ratio 18.2 RATIO (10-20); Calcium,Total 7.8 mg/dL (8.5-10.1); Chloride 110 mmol/L (98-107); Creatinine, Serum 1.21 mg/dL (0.70-1.30); EST Glomerular Filtration Rate 61 mL/min (>60); Est Glom Filt Rate - Afr Amer 74 mL/min (>60); Estimated Creatinine Clearance 34.22 ml/min; Glucose 190 mg/dL (74-106); Potassium 4.4 mmol/L (3.5-5.1); Sodium Level 143 mmol/L (136-145)
--- NOTE | 2017-11-07 08:45 | NURSING ---
report given to SAROJ Elder in ICU
[2017-11-07 11:25] LABS: ACT Activated Clotting Time 120 sec (74-137)
[2017-11-07 11:26] LABS: ACT Activated Clotting Time 197 sec (74-137)
[2017-11-07 11:26] LABS: ACT Activated Clotting Time 158 sec (74-137)
[2017-11-07 11:26] LABS: ACT Activated Clotting Time 208 sec (74-137)
[2017-11-07 11:26] LABS: ACT Activated Clotting Time 208 sec (74-137)
--- NOTE | 2017-11-07 11:36 | EKG12_ITS ---
Test Reason : POST PCI Blood Pressure : / mmHG Vent. Rate : 071 BPM Atrial Rate : 071 BPM P-R Int : 154 ms QRS Dur : 078 ms QT Int : 390 ms P-R-T Axes : 071 -17 020 degrees QTc Int : 423 ms Normal sinus rhythm Inferior-posterior infarct , age undetermined Abnormal ECG When compared with ECG of 07-NOV-2017 05:13, MANUAL COMPARISON REQUIRED, DATA IS UNCONFIRMED Confirmed by YAHAIRA LAWRENCE ([id number]), communications editor CARROLL AGUIRRE ([id number]) on 11/14/2017 3:10:22 PM Referred By: MELINDA Confirmed By:YAHAIRA LAWRENCE
[2017-11-07] MEDS: 0.9% Normal Saline 1,000 ML 150 ML IV (12:22)
[2017-11-07 12:40] LABS: Bedside Glucose 111 mg/dL (70-110)
--- NOTE | 2017-11-07 12:42 | CRPHASE1 ---
Patient Data/Charges Phase II Referral:: [facility] Start Phase II:: FOLLOWING OFFICE VISIT WITH MACHINE BUNCH MAKER Risk Factors/Lifestyle Smoking Status: Former smoker Hx Hypertension: Yes Hx Diabetes Mellitus Type 1: No Hx Metabolic Disorders: No Hx Dyslipidemia: Yes Hx Obesity: No Height: 5 ft 1 in - BMI 25.9 Stress: Home/Family Risk Factor for Sedentary Lifestyle: Highest Risk Family History: Family History (Last Reviewed 07/28/17 @ 10:40 by Cathi Walls NP-C) Grandfather Cancer Laboratory Values: Cardiac Rehab Phase I Labs Triglycerides 42 mg/dL (-199) 11/04/17 05:10 Cholesterol 104 mg/dL (200) 11/04/17 05:10 LDL Cholesterol 15 mg/dL (0-130) 11/04/17 05:10 HDL Cholesterol 81 mg/dL (40-) 11/04/17 05:10 Phase I Education Given On:: [place], Nutrition, Antiplatelet medication Issues Affecting Care:: None Knowledge of Condition:: Yes Learning Preferences: Verbal, Written - PT. STATES THAT HE'S GOING INTO PALLIATIVE CARE FOR OTHER HEALTH ISSUES Hospital Course Presenting Symptoms:: NON-STEMI Medical/Surgical History [place]:: Yes - NON-STEMI COPD:: Yes GLENNA:: Yes Diabetes:: No Hypertension:: Yes Dyslipidemia:: Yes Anxiety:: Yes Discharge/Home/Social Eval Discharge Disposition: Hospice
--- NOTE | 2017-11-07 12:45 | CRPHASE1_ITS ---
Patient Data/Charges Phase II Referral:: [facility] Start Phase II:: FOLLOWING OFFICE VISIT WITH BACTERIOLOGY TECHNICIAN Risk Factors/Lifestyle Smoking Status: Former smoker Hx Hypertension: Yes Hx Diabetes Mellitus Type 1: No Hx Metabolic Disorders: No Hx Dyslipidemia: Yes Hx Obesity: No Height: 5 ft 1 in - BMI 25.9 Stress: Home/Family Risk Factor for Sedentary Lifestyle: Highest Risk Family History: Family History (Last Reviewed 07/28/17 @ 10:40 by Cathi Walls NP-C) Grandfather Cancer Laboratory Values: Cardiac Rehab Phase I Labs Triglycerides 42 mg/dL (-199) 11/04/17 05:10 Cholesterol 104 mg/dL (200) 11/04/17 05:10 LDL Cholesterol 15 mg/dL (0-130) 11/04/17 05:10 HDL Cholesterol 81 mg/dL (40-) 11/04/17 05:10 Phase I Education Given On:: [place], Nutrition, Antiplatelet medication Issues Affecting Care:: None Knowledge of Condition:: Yes Learning Preferences: Verbal, Written - PT. STATES THAT HE'S GOING INTO PALLIATIVE CARE FOR OTHER HEALTH ISSUES Hospital Course Presenting Symptoms:: NON-STEMI Medical/Surgical History [place]:: Yes - NON-STEMI COPD:: Yes GLENNA:: Yes Diabetes:: No Hypertension:: Yes Dyslipidemia:: Yes Anxiety:: Yes Discharge/Home/Social Eval Discharge Disposition: Hospice
--- NOTE | 2017-11-07 12:47 | CRPH1.INST_ITS ---
General Education CAD and cardiac anatomy and function:: Patient communicates acknowledgment Explanation of diagnoses and procedures:: Patient communicates acknowledgment Sign/Symptoms of CT:: Patient communicates acknowledgment Antiplatelet therapy: Patient communicates acknowledgment Proper use of NTG-SL: Patient communicates acknowledgment Emergency procedures and activation of EMS: Patient communicates acknowledgment Compliance of all prescribed medications: Patient communicates acknowledgment - PT. STATES THAT HE'S GOING INTO PALLIATIVE CARE AFTER HOSPITALIZATION Smoking Recommendations Include:: Previous smoker; encourage continued cessation Nicotine/Smoking Response Code:: Patient communicates acknowledgment Dyslipidemia Recommendations Include:: Lipid profile provided, Reviewed NCEP/ATP guidelines, Therapeutic Lifestyle Change dietary guidelines Dyslipidemia Response Code:: Patient communicates acknowledgment Overweight/Obesity Patient Overweight/Obesity Risk Factors Are:: BMI Normal [24-29 & > 65 years old ] Recommendations Include:: Exercise 5-7 times/week Overweight/Obesity:: Patient communicates acknowledgment Hypertension Recommendations Include:: Maintain BP <130/85, Decrease/maintain normal body weight, Moderation of ETOH Hypertension:: Patient communicates acknowledgment Diabetes Patient Diabetes Risk Factors Are:: No documented hx of diabetes Metabolic Syndrome Recommendations Include:: Does not meet criteria Sedentary Patient Sedentary Risk Factors Are:: Lack of regular exercise Recommendations Include:: Aerobic exercise 5-7 times/week for 20-30 minutes continuously, Benefits of regular exercise, Discussed home walking program, Monitored Outpatient Cardiac Rehab Sedentary Response Code:: Patient communicates acknowledgment Stress Recommendations Include:: Identification of stressors, and assessment of coping skills, Stress management techniques Stress Response Code:: Patient communicates acknowledgment
--- NOTE | 2017-11-07 12:57 | PCM.PROGNOTE ---
<Grecia Parikh - Last Filed: 11/07/17 13:05> Patient Problems: Active and Suspected Problems (Last Reviewed 07/28/17 @ 10:40 by Cathi Walls NP-Adolph) Chest pain (Acute) Subjective: Patient seen and examined. Denies further chest pain. Patient underwent cardiac catheterization with PTCA/SHASTA to proximal RCA. No complications. Shortness of breath continues to be improved. - Physical Exam General: Alert, Oriented x3, Cooperative, No apparent distress HEENT: Atraumatic, PERRLA, EOMI, Normocephalic Neck: Supple, No JVD, Negative Carotid Bruits Lungs: Clear to auscultation, Diminished Cardiovascular: Regular rate, Regular Rhythm, Normal S1, Normal S2, No murmurs Abdomen: Bowel Sounds Present, Soft, Non Tender, Non-Distended Extremities: No clubbing, No cyanosis, No edema, Capillary Refill Less than 3 Seconds Skin: No rashes, No breakdown Musculoskeletal: No Tenderness to Palpation of Joints or Extremities Neurological: Cranial nerves II-XII grossly intact, Neuro grossly intact Psych/Mental Status: Normal Affect, Appropriate Vital Signs Temp Pulse Resp BP Pulse Ox 97.8 F 69 22 H 108/57 L 97 11/07/17 06:31 11/07/17 11:55 11/07/17 06:48 11/07/17 06:31 11/07/17 06:48 Oxygen Flow Rate (L/min) 2 Oxygen Delivery Method Nasal Cannula Weight: 140 lb 14.006 oz Body Mass Index (BMI) 25.9 Intake and Output for Last 24 Hours 11/05/17 11/06/17 11/07/17 23:59 23:59 23:59 Intake Total 1784 / 1784 2223.1 / 2223.1 320 / 320 Output Total 1375 / 1375 2225 / 2225 1050 / 1050 Balance 409 / 409 -1.9 / -1.9 -730 / -730 Microbiology Past 72 Hours 11/04/17 02:17 Respiratory Panel (PCR) - Final Mucosa - Nasopharyngeal Laboratory Tests Past 24 Hrs 11/06/17 11/06/17 11/06/17 16:38 17:50 23:50 WBC RBC Hgb Hct MCV MCH MCHC RDW RDW Differential Plt Count MPV Neut % (Auto) Absolute Neuts (auto) Absolute Lymphs (auto) Total Counted Neutrophils % (Manual) Band Neutrophils % Lymphocytes % (Manual) Monocytes % (Manual) Metamyelocytes % Diff Path Review Platelet Estimate RBC Morphology PT INR APTT 178.4 H* 107.2 H* 43.0 H Activated Clotting Time Sodium Potassium Chloride Carbon Dioxide Anion Gap BUN Creatinine Estim Creat Clear Calc Est GFR (MDRD) Af Amer Est GFR (MDRD) Non-Af BUN/Creatinine Ratio Glucose Calcium 11/07/17 11/07/17 11/07/17 06:00 06:00 06:00 WBC 9.8 RBC 3.91 L Hgb 10.9 L Hct 34.6 L MCV 88.5 MCH 27.9 MCHC 31.5 L RDW 15.4 H RDW Differential 49.7 H Plt Count 190 MPV 9.4 Neut % (Auto) Not Reportable Absolute Neuts (auto) 7.9 H Absolute Lymphs (auto) 0.98 Total Counted 100 Neutrophils % (Manual) 79 H Band Neutrophils % 2 Lymphocytes % (Manual) 10 L Monocytes % (Manual) 4 Metamyelocytes % 5 H Diff Path Review May foll Platelet Estimate ADEQUATE RBC Morphology NORM C+C PT 14.1 INR 1.1 APTT Activated Clotting Time Sodium 143 Potassium 4.4 Chloride 110 H Carbon Dioxide 24.0 Anion Gap 9 BUN 22 H Creatinine 1.21 Estim Creat Clear Calc 34.22 Est GFR (MDRD) Af Amer 74 Est GFR (MDRD) Non-Af 61 BUN/Creatinine Ratio 18.2 Glucose 190 H Calcium 7.8 L 11/07/17 11/07/17 11/07/17 06:00 08:28 09:05 WBC RBC Hgb Hct MCV MCH MCHC RDW RDW Differential Plt Count MPV Neut % (Auto) Absolute Neuts (auto) Absolute Lymphs (auto) Total Counted Neutrophils % (Manual) Band Neutrophils % Lymphocytes % (Manual) Monocytes % (Manual) Metamyelocytes % Diff Path Review Platelet Estimate RBC Morphology PT INR APTT 68.2 H Activated Clotting Time 120 197 H Sodium Potassium Chloride Carbon Dioxide Anion Gap BUN Creatinine Estim Creat Clear Calc Est GFR (MDRD) Af Amer Est GFR (MDRD) Non-Af BUN/Creatinine Ratio Glucose Calcium 11/07/17 11/07/17 11/07/17 09:31 09:37 11:18 WBC RBC Hgb Hct MCV MCH MCHC RDW RDW Differential Plt Count MPV Neut % (Auto) Absolute Neuts (auto) Absolute Lymphs (auto) Total Counted Neutrophils % (Manual) Band Neutrophils % Lymphocytes % (Manual) Monocytes % (Manual) Metamyelocytes % Diff Path Review Platelet Estimate RBC Morphology PT INR APTT Activated Clotting Time 208 H 208 H 158 H Sodium Potassium Chloride Carbon Dioxide Anion Gap BUN Creatinine Estim Creat Clear Calc Est GFR (MDRD) Af Amer Est GFR (MDRD) Non-Af BUN/Creatinine Ratio Glucose Calcium POC Glucose 11/07/17 12:30 POC Glucose 111 H Medical Necessity - Tobacco Use Smoking Status: Former smoker Tobacco Use: Non-smoker Assessment/Plan All Active Problems (Last Reviewed 07/28/17 @ 10:40 by ESTEFANI Helm) Chest pain (Acute) COPD exacerbation (Acute) COPD (chronic obstructive pulmonary disease) (Acute) 1. Acute exacerbation of COPD with chronic hypoxic respiratory failure-improved. Continue oral prednisone taper. Albuterol and DuoNeb aerosols. Continue doxycycline empirically given significant lung disease. Stop date 11/08/2017. Chest x-ray without acute changes. Patient chronically wears 2 L nasal cannula at home. Continue supplement oxygen to maintain O2 at or above 90%. Respiratory panel negative. Follows with Dr. Shaffer/Cathi Walls as outpatient. Continue outpatient follow-up at discharge. 2. Indeterminate troponin/CAD- EKG without evidence of ischemia. Echocardiogram demonstrated an EF of 75%, abnormal diastolic dysfunction, mildly dilated aortic root. Cardiology consulted. Patient underwent cardiac catheterization 11/06/2017 which showed severe CAD mid RCA with moderate calcification with 2 lesions, first lesion 40% and second lesion 90% stenosis. Patient further underwent PTCA/SHASTA of the proximal RCA with Dr. Rowan 11/07/2017. Continue aspirin and Plavix. Continue outpatient follow-up with Dr. Rowan. Repeat echo in 3 weeks to evaluate LAD. 3. Hypertension-stable, continue home metoprolol. 4. Chronic kidney disease stage III-stable, monitor BMP. Gentle IV fluids given exposure to contrast. 5. GERD-continue PPI. 6. Depression/anxiety-continue home medication. 7. BPH-continue Flomax and Proscar. 8. GLENNA-CPAP nightly. DVT prophylaxis-heparin subcu. This patient was seen by ESTEFANI Jordan under the supervision of Dr. Hudson. <Evelyn Hudson E - Last Filed: 11/07/17 14:52> - Physical Exam Vital Signs Temp Pulse Resp BP Pulse Ox 98 F 86 20 H 131/71 H 100 11/07/17 14:00 11/07/17 14:30 11/07/17 14:07 11/07/17 14:30 11/07/17 14:06 Oxygen Flow Rate (L/min) 2 Oxygen Delivery Method Nasal Cannula Weight: 140 lb 14.006 oz Body Mass Index (BMI) 25.9 Intake and Output for Last 24 Hours 11/05/17 11/06/17 11/07/17 23:59 23:59 23:59 Intake Total 1784 / 1784 2223.1 / 2223.1 320 / 320 Output Total 1375 / 1375 2225 / 2225 1050 / 1050 Balance 409 / 409 -1.9 / -1.9 -730 / -730 Microbiology Past 72 Hours 11/04/17 02:17 Respiratory Panel (PCR) - Final Mucosa - Nasopharyngeal Laboratory Tests Past 24 Hrs 11/06/17 11/06/17 11/06/17 16:38 17:50 23:50 WBC RBC Hgb Hct MCV MCH MCHC RDW RDW Differential Plt Count MPV Neut % (Auto) Absolute Neuts (auto) Absolute Lymphs (auto) Total Counted Neutrophils % (Manual) Band Neutrophils % Lymphocytes % (Manual) Monocytes % (Manual) Metamyelocytes % Diff Path Review Platelet Estimate RBC Morphology PT INR APTT 178.4 H* 107.2 H* 43.0 H Activated Clotting Time Sodium Potassium Chloride Carbon Dioxide Anion Gap BUN Creatinine Estim Creat Clear Calc Est GFR (MDRD) Af Amer Est GFR (MDRD) Non-Af BUN/Creatinine Ratio Glucose Calcium 11/07/17 11/07/17 11/07/17 06:00 06:00 06:00 WBC 9.8 RBC 3.91 L Hgb 10.9 L Hct 34.6 L MCV 88.5 MCH 27.9 MCHC 31.5 L RDW 15.4 H RDW Differential 49.7 H Plt Count 190 MPV 9.4 Neut % (Auto) Not Reportable Absolute Neuts (auto) 7.9 H Absolute Lymphs (auto) 0.98 Total Counted 100 Neutrophils % (Manual) 79 H Band Neutrophils % 2 Lymphocytes % (Manual) 10 L Monocytes % (Manual) 4 Metamyelocytes % 5 H Diff Path Review Reviewed Platelet Estimate ADEQUATE RBC Morphology NORM C+C PT 14.1 INR 1.1 APTT Activated Clotting Time Sodium 143 Potassium 4.4 Chloride 110 H Carbon Dioxide 24.0 Anion Gap 9 BUN 22 H Creatinine 1.21 Estim Creat Clear Calc 34.22 Est GFR (MDRD) Af Amer 74 Est GFR (MDRD) Non-Af 61 BUN/Creatinine Ratio 18.2 Glucose 190 H Calcium 7.8 L 11/07/17 11/07/17 11/07/17 06:00 08:28 09:05 WBC RBC Hgb Hct MCV MCH MCHC RDW RDW Differential Plt Count MPV Neut % (Auto) Absolute Neuts (auto) Absolute Lymphs (auto) Total Counted Neutrophils % (Manual) Band Neutrophils % Lymphocytes % (Manual) Monocytes % (Manual) Metamyelocytes % Diff Path Review Platelet Estimate RBC Morphology PT INR APTT 68.2 H Activated Clotting Time 120 197 H Sodium Potassium Chloride Carbon Dioxide Anion Gap BUN Creatinine Estim Creat Clear Calc Est GFR (MDRD) Af Amer Est GFR (MDRD) Non-Af BUN/Creatinine Ratio Glucose Calcium 11/07/17 11/07/17 11/07/17 09:31 09:37 11:18 WBC RBC Hgb Hct MCV MCH MCHC RDW RDW Differential Plt Count MPV Neut % (Auto) Absolute Neuts (auto) Absolute Lymphs (auto) Total Counted Neutrophils % (Manual) Band Neutrophils % Lymphocytes % (Manual) Monocytes % (Manual) Metamyelocytes % Diff Path Review Platelet Estimate RBC Morphology PT INR APTT Activated Clotting Time 208 H 208 H 158 H Sodium Potassium Chloride Carbon Dioxide Anion Gap BUN Creatinine Estim Creat Clear Calc Est GFR (MDRD) Af Amer Est GFR (MDRD) Non-Af BUN/Creatinine Ratio Glucose Calcium POC Glucose 11/07/17 12:30 POC Glucose 111 H Assessment/Plan Hospitalist note: I am seeing this patient in conjunction with Grecia Parikh. I independently seen and examined the patient. Progress note above reviewed and I concur with the above treatment plan. He underwent cardiac catheterization today status post PTCA/SHASTA to mid RCA and proximal RCA. At this time, he denies any chest pain, shortness of breath is improving. Vital signs are stable. - Physical Exam General: Alert, Oriented x3, Cooperative, moderately short of breath. HEENT: Atraumatic, PERRLA, EOMI. Neck: Supple, No JVD, Negative Carotid Bruits, Trachea Midline, Thyroid Normal. Lungs: Decreased breath sounds bilateral, scattered rhonchi, occasional wheezing, no rales.. Cardiovascular: Regular rate, Regular Rhythm, Normal S1, Normal S2, PMI Normal. Abdomen: Bowel Sounds Present, Soft, Non Tender, Non-Distended, No Hepato-splenomegaly. Extremities: No clubbing, No cyanosis, No edema Skin: No rashes, No breakdown Neurological: Neuro grossly intact Vital Signs are stable. Assessment and plan: #1 acute COPD exacerbation/chronic respiratory failure: Chest x-ray without acute findings. He is on bronchodilators and oral prednisone as well as doxycycline. Respiratory panel for viruses were negative. Patient symptoms improved today, he is down to 2 L of oxygen, improved and this is his baseline at home. Plan to continue same treatment, DC home tomorrow. #2 Non-ST elevation VT: Status post cardiac catheterization, PTCA/SHASTA to mid and proximal RCA. He is on aspirin, statins, Plavix, metoprolol. IV heparin discontinued. 2D echocardiogram revealed ejection fraction 75%. Plan as above. #3 other chronic medical problems: Stable, continue current medications as above. This note was generated with [employer] dictation software. It may contain incorrect words, spelling, and punctuation that were not noted in checking the note before signing. Code Visit Inpatient E&M: 22733 Subs Hosp L2
[2017-11-07] MEDS: Finasteride 5 MG Tablet PO (13:17)
[2017-11-07] MEDS: Montelukast 10 MG Tablet PO (13:17)
[2017-11-07] MEDS: predniSONE 10 MG Tablet 30 MG PO (13:17)
[2017-11-07] MEDS: Loratadine 10 MG Tablet PO (13:18)
[2017-11-07] MEDS: Pantoprazole Sodium 20 MG Tablet PO (13:18)
[2017-11-07] MEDS: Doxycycline 100 MG CAPSULE PO ×2 (13:18→21:18)
[2017-11-07] MEDS: Venlafaxine XR 75 MG Capsule 225 MG PO (13:18)
[2017-11-07] MEDS: Tamsulosin HCl 0.4 MG Capsule PO (13:19)
[2017-11-07] MEDS: guaiFENesin 1,200 MG Tablet 1200 MG PO ×2 (14:29→21:17)
[2017-11-07 14:44] LABS: Pathologist Review Reviewed
--- NOTE | 2017-11-07 15:43 | CASEMGMT ---
Intro role of CM to patient. discussed recommendation for Home Health on dc. Pt initially declined stating he did not want anyone coming to his daughter's home (pt lives with daughter). Pt did verbalize he has been weaker and unable to do ADL he enjoys such as going to [employer] due to weakness and fatigue in past. SAROJ CASTANON discussed PT/OT at home assisting with strengthening, mobility, safety and RN would monitor medical condition. It would assist in reaching his goals of being more active. Pt will consider. SAROJ CASTANON asked if he had preference for [facility] if he decided to pursue- no preference. SAROJ CASTANON discussed using [facility] (instead of [place]) as it can be easily set up would be short term. -Pt discussed that he has stress issues and sees therapist. SAROJ CASTANON inquired if having people in his home is difficult but pt denied this as an issue. SAROJ CASTANON asked how he is feeling in the hospital with treatment plan and heart cath today. Pt states he is feeling fine, and hopeful that the stents will help me feel better and do more at home now. -PT/OT to see patient tomorrow-will review pt's progress. -Call to Trish with [facility]. Reviewed pt, including that he may agree to RN/PT/OT but is still deciding. No order entered yet. Chon KYLE BSN ACM
[2017-11-07 17:00] LABS: Bedside Glucose 173 mg/dL (70-110)
--- NOTE | 2017-11-07 19:15 | CPS ---
pt has PAP therapy at home but is not wearing at this time. Pt refused to wear CPAP here in the hospital
[2017-11-07] MEDS: Latanoprost 0.005% 1 Bottle 1 DRP EACH EYE (21:15)
[2017-11-07] MEDS: Mirtazapine 15 MG Tablet 7.5 MG PO (21:16)
[2017-11-07] MEDS: traZODone 50 MG Tablet PO (21:17)
[2017-11-07] MEDS: Atorvastatin Calcium 40 MG Tablet PO (21:19)
[2017-11-07 23:36] LABS: Bedside Glucose 203 mg/dL (70-110)
[2017-11-08] VITALS (30 sets, daily range): BP systolic 111–169; BP diastolic 40–103; PULSE 66–96; RESP 16–28; TEMP 36.1–37.2; O2SAT 94–100
[2017-11-08 02:11] LABS: Bedside Glucose 220 mg/dL (70-110)
[2017-11-08] MEDS: Ipratropium/Albuterol Sulfate 3 ML AMPUL.NEB INHALATION ×6 (03:38→23:36)
[2017-11-08] MEDS: 0.9% Normal Saline 1,000 ML 100 ML IV (04:37)
[2017-11-08] MEDS: 0.9% NaCl Peripheral Flush Adult/Peds IV (04:41)
[2017-11-08 05:02] LABS: Hematocrit 31.7 % (40-54); Hemoglobin 9.8 g/dl (13.0-16.5); Mean Corp Hgb Conc 30.9 g/gl (32-36); Mean Corpuscular Hgb 27.5 pg (27.0-32.0); Mean Corpuscular Volume 88.8 fL (80-94); Mean Platelet Vol. 9.6 fl (6.2-12.0); Platelet Count 139 K/mm3 (150-450); RBC Distribution Width CV 15.6 % (11.6-14.6); RBC Distribution Width SD 50.3 fl (35.1-43.9); Red Blood Count 3.57 M/mm3 (4.6-6.2); Scan Indicated on CBC? Y/N NO; White Blood Count 9.4 K/mm3 (4.4-11.0)
[2017-11-08 05:11] LABS: Anion Gap 8 (5-15); BUN 18 mg/dL (7-18); BUN/Creat Ratio 16.7 RATIO (10-20); Calcium,Total 7.7 mg/dL (8.5-10.1); Chloride 113 mmol/L (98-107); Creatinine, Serum 1.08 mg/dL (0.70-1.30); EST Glomerular Filtration Rate 69 mL/min (>60); Est Glom Filt Rate - Afr Amer 84 mL/min (>60); Estimated Creatinine Clearance 38.34 ml/min; Glucose 170 mg/dL (74-106); Potassium 4.5 mmol/L (3.5-5.1); Sodium Level 144 mmol/L (136-145)
[2017-11-08] MEDS: Dorzolamide 2% 10ml Bottle 1 DRP EACH EYE ×3 (06:44→22:09)
[2017-11-08] MEDS: busPIRone 5 MG Tablet PO ×3 (06:44→22:07)
[2017-11-08 06:56] LABS: Bedside Glucose 176 mg/dL (70-110)
[2017-11-08] MEDS: predniSONE 10 MG Tablet 30 MG PO (08:30)
--- NOTE | 2017-11-08 09:41 | PCM.PN.HOSP ---
Patient Problems: Active and Suspected Problems (Last Reviewed 07/28/17 @ 10:40 by ESTEFANI Helm) Chest pain (Acute) Subjective: Patient was seen and examined. Denies any new complaints. Feels slightly short of breath with walking to the bathroom and back. Denies chest pain, dizziness. Wears 2 L of oxygen at home. Lives alone. Vitals/I&O's: Vital Signs Temp Pulse Resp BP Pulse Ox 98.1 F 83 28 H 153/103 H 99 11/08/17 08:00 11/08/17 09:00 11/08/17 09:00 11/08/17 09:00 11/08/17 09:00 Oxygen Flow Rate (L/min) 2 Oxygen Delivery Method Nasal Cannula Weight: 63.9 kg Body Mass Index (BMI) 25.9 Intake and Output for Last 24 Hours 11/06/17 11/07/17 11/08/17 23:59 23:59 23:59 Intake Total 2223.1 / 2223.1 2437 / 2437 913 / 913 Output Total 2225 / 2225 2975 / 2975 1150 / 1150 Balance -1.9 / -1.9 -538 / -538 -237 / -237 General: Alert, Oriented x3, Cooperative, No apparent distress HEENT: Atraumatic, PERRLA, EOMI, Normocephalic Oral: Moist Mucosa Neck: Supple Lungs: Clear to auscultation, Normal air movement Cardiovascular: Regular rate, Regular Rhythm, Normal S1, Normal S2, No murmurs Abdomen: Bowel Sounds Present, Soft, Non Tender, Non-Distended, No Hepato-splenomegaly, Obese Extremities: No edema Skin: No rashes, No breakdown Musculoskeletal: No Tenderness to Palpation of Joints or Extremities Lymphatic: No Cervical, Supraclavicular, or Inguinal Adenopathy Neurological: Cranial nerves II-XII grossly intact, Neuro grossly intact Psych/Mental Status: Normal Affect, Appropriate Laboratory Results 11/07/17 06:00: Diff Path Review Reviewed 11/07/17 08:28: Activated Clotting Time 120 11/07/17 09:05: Activated Clotting Time 197 H 11/07/17 09:31: Activated Clotting Time 208 H 11/07/17 09:37: Activated Clotting Time 208 H 11/07/17 11:18: Activated Clotting Time 158 H 11/07/17 12:30: POC Glucose 111 H 11/07/17 16:54: POC Glucose 173 H 11/07/17 23:28: POC Glucose 203 H 11/08/17 02:06: POC Glucose 220 H 11/08/17 04:45: Sodium 144, Potassium 4.5, Chloride 113 H, Carbon Dioxide 23.0, Anion Gap 8, BUN 18, Creatinine 1.08, Estim Creat Clear Calc 38.34, Est GFR (MDRD) Af Amer 84, Est GFR (MDRD) Non-Af 69, BUN/Creatinine Ratio 16.7, Glucose 170 H, Calcium 7.7 L 11/08/17 04:45: WBC 9.4, RBC 3.57 L, Hgb 9.8 L, Hct 31.7 L, MCV 88.8, MCH 27.5, MCHC 30.9 L, RDW 15.6 H, RDW Differential 50.3 H, Plt Count 139 L, MPV 9.6 11/08/17 06:52: POC Glucose 176 H Current Medications Acetaminophen (Tylenol) 650 mg PO Q6H PRN PRN PRN Reason: Mild Pain (scale 0-3)/T>100.7 Al Hydroxide/Mg Hydroxide (Mylanta Ii) 30 ml PO Q6H PRN PRN PRN Reason: Gastric burning Last Admin: 11/05/17 02:31 Dose: 30 ml Albuterol Sulfate (Ventolin Aerosols) 2.5 mg INHALATION Q2H PRN PRN PRN Reason: SHORTNESS OF BREATH Albuterol/Ipratropium (Duoneb) 3 ml INHALATION Q4H.RT ON LICENSE OF [facility] Last Admin: 11/08/17 06:28 Dose: 3 ml Aspirin (Ecotrin) 81 mg PO DAILY ON LICENSE OF [facility] Last Admin: 11/07/17 06:29 Dose: 81 mg Atorvastatin Calcium (Lipitor) 40 mg PO QHS ON LICENSE OF [facility] Last Admin: 11/07/17 21:19 Dose: 40 mg Atropine Sulfate () 0.5 mg IV UD PRN PRN Reason: HR <50 bpm Buspirone HCl (Buspar) 5 mg PO TID ON LICENSE OF [facility] Last Admin: 11/08/17 06:44 Dose: 5 mg Clopidogrel Bisulfate (Plavix) 75 mg PO DAILY ON LICENSE OF [facility] Docusate Sodium (Colace) 100 mg PO BID PRN PRN PRN Reason: Constipation Dorzolamide HCl (Trusopt) 1 drop EACH EYE TID ON LICENSE OF [facility] Last Admin: 11/08/17 06:44 Dose: 1 drop Doxycycline Monohydrate (Doxycycline) 100 mg PO BID ON LICENSE OF [facility] Stop: 11/08/17 22:01 Last Admin: 11/07/17 21:18 Dose: 100 mg Finasteride (Proscar) 5 mg PO DAILY ON LICENSE OF [facility] Last Admin: 11/07/17 13:17 Dose: 5 mg Guaifenesin (Mucinex) 1,200 mg PO BID ON LICENSE OF [facility] Last Admin: 11/07/17 21:17 Dose: 1,200 mg Heparin Sodium (Beef Lung) (Heparin 500 Unit/5 Ml (100/Ml)) 500 unit IV UD PRN PRN Reason: HEPARIN FLUSH Sodium Chloride () 250 mls @ 15 mls/hr IV .[id number] PRN PRN Reason: SALINE FLUSH Labetalol HCl (Trandate) 5 mg IV X1 PRN PRN Reason: SBP > 160 when pulling sheath Latanoprost (Xalatan Opthalmic) 1 drop EACH EYE QHS ON LICENSE OF [facility] Last Admin: 11/07/17 21:15 Dose: 1 drop Loratadine (Claritin) 10 mg PO DAILY ON LICENSE OF [facility] Last Admin: 11/07/17 13:18 Dose: 10 mg Magnesium Hydroxide (Milk Of Magnesia) 30 ml PO DAILY PRN PRN Reason: Constipation Metoprolol Tartrate (Lopressor (Beta Nick)) 25 mg PO BID ON LICENSE OF [facility] Last Admin: 11/07/17 21:16 Dose: 25 mg Mirtazapine (Remeron) 7.5 mg PO QHS ON LICENSE OF [facility] Last Admin: 11/07/17 21:16 Dose: 7.5 mg Montelukast Sodium (Singulair) 10 mg PO DAILY ON LICENSE OF [facility] Last Admin: 11/07/17 13:17 Dose: 10 mg Morphine Sulfate () 2 - 4 mg IV Q3H PRN PRN PRN Reason: Severe Pain (pain scale 6-10) Morphine Sulfate () 1 - 2 mg IV Q4H PRN PRN PRN Reason: Moderate Pain (pain scale 4-5) Nitroglycerin (Nitrostat) 0.4 mg SUBLINGUAL Q5M PRN PRN Reason: Angina pain Last Admin: 11/05/17 07:18 Dose: 0.4 mg Ondansetron HCl (Zofran) 4 mg IV Q8H PRN PRN PRN Reason: NAUSEA Oxycodone HCl (Oxyir) 5 mg PO Q4H PRN PRN PRN Reason: Moderate Pain (pain scale 4-5) Pantoprazole Sodium (Protonix) 20 mg PO DAILY ON LICENSE OF [facility] Last Admin: 11/07/17 13:18 Dose: 20 mg Prednisone () 40 mg PO DAILY@0800 ON LICENSE OF [facility] PRN Reason: Taper Stop: 11/18/17 07:59 Last Admin: 11/08/17 08:30 Dose: 40 mg Promethazine HCl (Phenergan) 12.5 mg IV Q6H PRN PRN PRN Reason: NAUSEA/VOMITING Sodium Chloride () 5 - 30 ml IV UD PRN PRN Reason: SALINE FLUSH Last Admin: 11/08/17 04:41 Dose: 20 ml Sodium Chloride () 500 ml IV BOLUS PRN PRN Reason: VASO-VAGAL PROTOCOL Tamsulosin HCl (Flomax) 0.4 mg PO DAILY ON LICENSE OF [facility] Last Admin: 11/07/17 13:19 Dose: 0.4 mg Trazodone HCl (Desyrel) 50 mg PO QHS ON LICENSE OF [facility] Last Admin: 11/07/17 21:17 Dose: 50 mg Venlafaxine HCl (Effexor Xr) 225 mg PO DAILY ON LICENSE OF [facility] Last Admin: 11/07/17 13:18 Dose: 225 mg Medical Necessity - Tobacco Use Smoking Status: Former smoker Tobacco Use: Non-smoker Assessment/Plan All Active Problems (Last Reviewed 07/28/17 @ 10:40 by Cathi Walls NP-C) Chest pain (Acute) COPD exacerbation (Acute) COPD (chronic obstructive pulmonary disease) (Acute) 82-year-old male with past medical history of COPD with chronic respiratory failure, on chronic 2 L of oxygen, was admitted with 3-day history of dyspnea, being managed as acute on chronic hypoxic respiratory failure secondary to acute on chronic COPD. Patient was found to have NSTEMI, cardiology was consulted. He is status post cardiac cath x2 which showed severe disease in his RCA, status post SHASTA in mid RCA. 1. Acute on chronic hypoxic respiratory failure second to COPD exacerbation, improved, on 2 L home oxygen, on steroid taper, completed antibiotics, 2. Acute COPD exacerbation, improving, on his home O2 level, still has some amount of wheezes on exam, will evaluate for ambulatory oxygen 3. NSTEMI, status post drug-eluting stent to the mid RCA, remains on aspirin, Plavix, statin, beta-nick, follow with cardiology in the outpatient 4. Hypertension, profile has been fluctuating, will continue to monitor on home medication. 5. ILDEFONSO on CKD stage III, present on admission, improved, creatinine now 1.08 from 1.59, will continue to monitor 6. Hyperglycemia, no history of diabetes, HbA1c is 9.7, will start on Lantus 5 units QHS, continue with ISS 7. GERD, on PPI. 8. Depression/anxiety, on home medication. 9. BPH, having urine retention issues overnight, on Flomax and Proscar, will have urethral catheter placed, follow-up appointment set for outpatient with Dr. Salazar on November 16 10. GLENNA-CPAP nightly. 11. DVT prophylaxis-heparin subcu. 12. Disposition: Possible DC tomorrow Code Visit Inpatient E&M: 95230 Subs Hosp L2
[2017-11-08] MEDS: Tamsulosin HCl 0.4 MG Capsule PO (09:44)
[2017-11-08] MEDS: Metoprolol Tartrate 25 MG Tablet PO ×2 (09:45→22:08)
[2017-11-08] MEDS: Finasteride 5 MG Tablet PO (09:45)
[2017-11-08] MEDS: Doxycycline 100 MG CAPSULE PO ×2 (09:45→22:07)
[2017-11-08] MEDS: Venlafaxine XR 75 MG Capsule 225 MG PO (09:45)
[2017-11-08] MEDS: Aspirin E.C. 81 MG Tablet PO (09:45)
[2017-11-08] MEDS: Montelukast 10 MG Tablet PO (09:46)
[2017-11-08] MEDS: Clopidogrel Bisulfate 75 MG Tablet PO (09:46)
[2017-11-08] MEDS: Pantoprazole Sodium 20 MG Tablet PO (09:46)
[2017-11-08] MEDS: guaiFENesin 1,200 MG Tablet 1200 MG PO ×2 (09:46→22:08)
[2017-11-08] MEDS: Loratadine 10 MG Tablet PO (09:46)
--- NOTE | 2017-11-08 09:56 | PCM.PN.CARD ---
Subjectve: Patient doing very well this morning, had some urinary retention last evening but no chest pain. Telemetry is negative except for rare PVC. EKG shows normal sinus rhythm, no acute changes. Hemoglobin and creatinine are within nominal limits. Objective: Vital Signs Temp Pulse Resp BP Pulse Ox 98.1 F 75 28 H 153/103 H 99 11/08/17 08:00 11/08/17 09:45 11/08/17 09:00 11/08/17 09:45 11/08/17 09:00 Oxygen Flow Rate (L/min) 2 Oxygen Delivery Method Nasal Cannula Weight: 140 lb 14.006 oz Body Mass Index (BMI) 25.9 Intake and Output for Last 24 Hours 11/06/17 11/07/17 11/08/17 23:59 23:59 23:59 Intake Total 2223.1 / 2223.1 2437 / 2437 913 / 913 Output Total 2225 / 2225 2975 / 2975 1150 / 1150 Balance -1.9 / -1.9 -538 / -538 -237 / -237 General: Awake, Alert, Oriented x 3 HEENT: PERRL, EOMI, Sclera Non Icteric Neck: Supple, Good ROM, No Lymph Node Enlargement Lungs: Clear to auscultation Cardiovascular: Regular Rhythm, Normal S1, Normal S2, No Murmurs, No Rubs, No Gallops Vascular: No Carotid Bruits, Normal Femoral Pulses, Normal Radial Pulses, Normal Dorsalis Pedal Pulse, Normal Posterior Tibial Pulses Abdomen: Bowel Sounds Present, Soft, Non Tender, No HSM, No Organomegaly Extremities: No Cyanosis, No Clubbing, No edema Neurological: No Focal Motor or Sensory Deficit 11/08/17 04:45: Sodium 144, Potassium 4.5, Chloride 113 H, Carbon Dioxide 23.0, Anion Gap 8, BUN 18, Creatinine 1.08, Est GFR (MDRD) Af Amer 84, Est GFR (MDRD) Non-Af 69, BUN/Creatinine Ratio 16.7, Glucose 170 H, Calcium 7.7 L 11/08/17 04:45: WBC 9.4, RBC 3.57 L, Hgb 9.8 L, Hct 31.7 L, MCV 88.8, MCH 27.5, MCHC 30.9 L, RDW 15.6 H, RDW Differential 50.3 H, Plt Count 139 L, MPV 9.6 Rhythm: EKG: ECHO: Stress Test: Cardiac Cath: PCI: CT Surgery: Holter monitor: EPS: PPM: CXR: Chest CT Scan: Medical Necessity - Tobacco Use Smoking Status: Former smoker Tobacco Use: Non-smoker Assessment/Plan 1. Coronary artery disease: Patient feels much better since percutaneous intervention yesterday. He had angioplasty and drug-eluting stenting ?2 to the right coronary artery. He was also found to have possibly significant proximal and mid LAD disease. Patient will be discharged home and follow-up with us in the office going forward. He will continue baby aspirin, Plavix and antihypertensive medications as outlined in the [facility]. In addition he will undergo a treadmill echocardiogram or treadmill/MPI in 3 weeks time to assess whether or not his LAD has any anterior ischemia. If this is grossly abnormal for ischemia, he will return for elective angioplasty and stenting of his LAD. If however his stress test is negative for anterior ischemia would recommend medical management going forward unless and until the patient has significant symptoms of angina. 2. Hyperlipidemia: Continue Lipitor. 3. Follow-up with Dr. Rowan going forward. Thank you very much for the opportunity to participate in the cardiac care of your patient. Code Visit Inpatient E&M: [id number] Subs Hosp L2
--- NOTE | 2017-11-08 11:07 | CASEMGMT ---
LW/POPatricia not on chart. SW asked pt about it, he will ask his daughter to bring the papers in. DAVID Kwan, FRONT WORKER
--- NOTE | 2017-11-08 11:13 | CASEMGMT ---
Addendum entered by Kiera Piper 11/08/17 12:53: Pt also spoke w/SW about getting medical bills from prior hospitalizations, that [facility], so he has bills for $3600. Pt states he has spoken to the financial dept here and they were unable to help, so now he is speaking w/the [facility] about it. SW called Kylah in our financial dept and she was able to see that pt's stay in [facility] was denied by the [facility]. As mentioned, the pt is already working w/the [facility] directly in regard to these bills. DAVID Kwan, TOLL COLLECTOR Original Note: SW spoke w/pt in room in regard to LW/POA. Pt states his daughter has brought them in before, SW explained that they do not appear to be in the chart, requested he ask his daughter to bring them in again. SW also asked pt about discharge plan. Pt anticipates being able to go home, though does state he can get up on his own but is weak. SW explained that CM/SW will continue to follow for discharge plan, explained that if rehab is needed, if pt is medically ready but not able to move well enough, we can look at rehab options for pt. Pt states understanding. SW/CM will continue to follow. DAVID Kwan, TOLL COLLECTOR
[2017-11-08 11:15] LABS: Bedside Glucose 141 mg/dL (70-110)
[2017-11-08] MEDS: Docusate Sodium 100 MG Capsule PO ×2 (11:15→22:08)
--- NOTE | 2017-11-08 11:36 | EKG12_ITS ---
Test Reason : MORNING EKG Blood Pressure : / mmHG Vent. Rate : 071 BPM Atrial Rate : 071 BPM P-R Int : 154 ms QRS Dur : 078 ms QT Int : 398 ms P-R-T Axes : 067 -01 -41 degrees QTc Int : 432 ms Normal sinus rhythm Inferior infarct , age undetermined Abnormal ECG When compared with ECG of 07-NOV-2017 12:08, MANUAL COMPARISON REQUIRED, DATA IS UNCONFIRMED Confirmed by YAHAIRA LAWRENCE ([id number]), video tape editor CARROLL AGUIRRE ([id number]) on 11/14/2017 3:11:12 PM Referred By: ROBERT Confirmed By:YAHAIRA LAWRENCE
[2017-11-08 11:58] LABS: Hemoglobin A1c 9.3 % (4.2-6.3)
[2017-11-08 12:20] LABS: Bedside Glucose 159 mg/dL (70-110)
[2017-11-08 16:25] LABS: Bedside Glucose 382 mg/dL (70-110)
[2017-11-08 18:58] LABS: Iron 46 ug/dL (65-175); Iron Binding Capacity,Total 270 ug/dL (250-450)
[2017-11-08] MEDS: traZODone 50 MG Tablet PO (22:07)
[2017-11-08] MEDS: Atorvastatin Calcium 40 MG Tablet PO (22:08)
[2017-11-08] MEDS: Mirtazapine 15 MG Tablet 7.5 MG PO (22:08)
[2017-11-08] MEDS: Latanoprost 0.005% 1 Bottle 1 DRP EACH EYE (22:09)
[2017-11-09] VITALS (12 sets, daily range): BP systolic 115–143; BP diastolic 64–83; PULSE 65–88; RESP 18–24; TEMP 36.3–37.1; O2SAT 95–100
[2017-11-09 00:01] LABS: Bedside Glucose 253 mg/dL (70-110)
[2017-11-09] MEDS: Ipratropium/Albuterol Sulfate 3 ML AMPUL.NEB INHALATION ×3 (03:36→11:42)
[2017-11-09 04:26] LABS: Bedside Glucose 104 mg/dL (70-110)
[2017-11-09] MEDS: busPIRone 5 MG Tablet PO ×2 (06:43→14:37)
[2017-11-09] MEDS: Dorzolamide 2% 10ml Bottle 1 DRP EACH EYE ×2 (06:43→14:37)
[2017-11-09 06:51] LABS: Bedside Glucose 146 mg/dL (70-110)
[2017-11-09 07:07] LABS: Anion Gap 8 (5-15); BUN 18 mg/dL (7-18); BUN/Creat Ratio 13.2 RATIO (10-20); Calcium,Total 8.8 mg/dL (8.5-10.1); Chloride 108 mmol/L (98-107); Creatinine, Serum 1.36 mg/dL (0.70-1.30); EST Glomerular Filtration Rate 53 mL/min (>60); Est Glom Filt Rate - Afr Amer 64 mL/min (>60); Estimated Creatinine Clearance 30.44 ml/min; Glucose 138 mg/dL (74-106); Potassium 4.1 mmol/L (3.5-5.1); Sodium Level 145 mmol/L (136-145)
[2017-11-09] MEDS: predniSONE 10 MG Tablet 30 MG PO (08:02)
--- NOTE | 2017-11-09 09:07 | PCM.DC ---
- Discharge Diagnoses Current Active Problems: Current Active and Chronic Problems (Last Reviewed 07/28/17 @ 10:40 by ESTEFANI Helm) Chest pain (Acute) Reason(s) for Visit for Discharge Instructions: Shortness of breath, chest pain You will use the following diet at home:: Calorie/Carbohydrate Controlled (specify 1200, 1400, etc) - 2000 calories, Cardiac Your food should be the consistency of: Regular Your liquids should be the consistency of: Regular/Thin Discharge Activity: Return to Normal Activity Additional Instructions: Be sure to take all your medications. Follow-up with Dr. Rowan and Vanessa Perdomo as scheduled. You are being discharged with a boyd catheter. Keep the catheter below your waist all the time to prevent getting a urine infection. See Dr. Salazar in a week for assessment and further management with reference to the Boyd catheter. Continue to use your oxygen all the time. Follow-up with Dr. Alvin Shaffer as scheduled. You will get a home health team to assist you at home. You should test your blood sugar at least 3 times a day. Look out for signs of hypoglycemia whilst on insulin Allergies/Adverse Reactions: Allergies No Known Allergies Allergy (Verified 11/03/17 22:48) Medications to take at Discharge Albuterol IH (ProAir) [Proair Hfa] 2 puff INHALATION Q4H PRN PRN 10/20/16 Aspirin [Aspirin EC] 81 mg PO DAILY 10/20/16 Dorzolamide HCl [Trusopt] 1 drp OP TID 10/20/16 Finasteride [Proscar] 5 mg PO DAILY 10/20/16 Latanoprost 1 drp OP QHS 10/20/16 Metoprolol Tartrate 25 mg PO BID 10/20/16 Mirtazapine 7.5 mg PO QHS 10/20/16 Montelukast [Singulair] 10 mg PO DAILY 10/20/16 Omeprazole 20 mg PO DAILY 10/20/16 Tamsulosin HCl [Flomax] 0.4 mg PO DAILY 10/20/16 Tiotropium [place] [Spiriva 18 MCG] 2 puff INHALATION DAILY 10/20/16 Venlafaxine HCl [Effexor Xr] 225 mg PO DAILY 10/20/16 busPIRone [Buspar] 5 mg PO TID 10/20/16 traZODone [Desyrel] 50 mg PO QHS 10/20/16 Cholecalciferol (VIT D3) [Vitamin D3] 4,000 unit PO DAILY 04/09/17 Docusate Sodium [Colace] 100 mg PO BID PRN 04/09/17 budesonide-formoterol HFA 160 mcg-4.5 mcg/actuation aerosol inhaler 2 puff INHALATION BID 07/27/17 loratadine 10 mg capsule 10 mg PO QDAY #30 cap 07/27/17 albuterol sulfate 2.5 mg/3 mL (0.083 %) solution for nebulization 2.5 mg INHALATION Q4H PRN #75 ml 11/01/17 Atorvastatin Calcium [Lipitor] 40 mg PO QHS #30 tab 11/09/17 Clopidogrel Bisulfate [Plavix] 75 mg PO DAILY #30 tab 11/09/17 Guaifenesin [Mucinex] 1,200 mg PO BID #20 tab 11/09/17 Insulin Glargine [Lantus SoloStar Pen] 5 units SC QHS #1 pen 11/09/17 Prednisone 10 mg PO UD #30 tab 11/09/17 The following prescriptions were given: Atorvastatin Calcium [Lipitor] 40 mg PO QHS #30 tab Clopidogrel Bisulfate [Plavix] 75 mg PO DAILY #30 tab Insulin Glargine [Lantus SoloStar Pen] 5 units SC QHS #1 pen Prednisone 10 mg PO UD #30 tab Guaifenesin [Mucinex] 1,200 mg PO BID #20 tab Orders to be completed after discharge: Basic Metabolic Profile (BMP) Location: Laboratory Glucometer Location: None Selected [facility] - Please follow up with your Primary Care Physician in: within 2 weeks Test Results: Test results from this visit will be discussed in further detail at your follow-up appointment, if applicable. Please Follow Up With: Dr. Salazar When: Please Follow Up With: Kristie Perdomo PA When: within 2 weeks Proposed Discharge Date: 11/09/17
--- NOTE | 2017-11-09 09:15 | PCM.DC.SUM ---
Discharge Date and Diagnosis - Problem List Patient Problems: Active and Suspected Problems (Last Reviewed 07/28/17 @ 10:40 by ESTEFANI Helm) Chest pain (Acute) Date of Admission: 11/04/17 Date of Discharge: 11/09/17 - Primary Discharge Diagnosis Active and Suspected Problems (Last Reviewed 07/28/17 @ 10:40 by ESTEFANI Helm) Chest pain (Acute)\ Acute NSTEMI Newly diagnosed DM - Secondary Discharge Diagnosis Chronic Problems (Last Reviewed 07/28/17 @ 10:40 by ESTEFANI Helm) Asthma, severe persistent (Chronic) Stage 4 very severe COPD by GOLD classification (Chronic) FEV1 45% COPD (chronic obstructive pulmonary disease) (Chronic) SOB (shortness of breath) (Chronic) Chronic respiratory failure with hypoxia (Chronic) 2L NC baseline home usage. BPH (benign prostatic hypertrophy) (Chronic) Hypertension (Chronic) Anxiety disorder (Chronic) Hospital Course and Treatment Imaging Results: Clinical Impression(s) from Imaging Studies Chest X-Ray 11/03/17 23:01 IMPRESSION: COPD. Nothing acute Electronically Signed: Tiburcio Campos, at 0:06 EDT Tel , Service support , Cardiology Operations: None Procedures: 2-D Echocardiogram, Cardiac catheterization Summary of Care Provided: The patient is a 82 year old M with end-stage COPD/asthma with chronic hypoxic respiratory failure on 2 L of oxygen at home, hypertension hyperlipidemia BPH who comes in on 11/04/2017 with progressively worsening dyspnea, nonproductive cough with wheezes ongoing for 3 days. Patient had also complained of chest pain,which was described as tightness, rated 10 out of 10, worse with increased exertion, improved with rest. He was admitted and managed as acute on chronic hypoxic respiratory failure secondary to acute on chronic COPD exacerbation. His troponins were found to be elevated starting from 0.073, then 0.048 and 0.042. Cardiology was consulted. He had a cardiac cath done on 11/06/2017. 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 His mid RCA was stented the next day 11/07/2017 with a drug-eluting stent. He was highly recommended to quit using all tobacco products. He will be on aspirin indefinitely, Plavix for at least 12 months. He will follow-up with outpatient cardiac rehab. He will follow-up with Dr. Rowan and have a dobutamine echo test in 3 weeks to evaluate his LAD. If this appears abnormal, he will have PCI of his LAD. Patient was managed post-cath in the ICU with no events. He was found to be hyperglycemic, HbA1c was 9.3. He was started on Lantus. His kidney function was fluctuating but stable at stage III CKD. He received education from the dietitian. He will be discharged on his 2 L of oxygen. He will have home health to follow as well as hospice referral from his previous outpatient visit with Dr. Alvin Shaffer. Discharge Diet: Low fat/ Low Cholesterol, 2000 mg Sodium Diet, Carb Control Diet Discharge Activity: Return to Normal Activity Home Medications: Medications to take at Discharge Albuterol IH (ProAir) [Proair Hfa] 2 puff INHALATION Q4H PRN PRN 10/20/16 Aspirin [Aspirin EC] 81 mg PO DAILY 10/20/16 Dorzolamide HCl [Trusopt] 1 drp OP TID 10/20/16 Finasteride [Proscar] 5 mg PO DAILY 10/20/16 Latanoprost 1 drp OP QHS 10/20/16 Metoprolol Tartrate 25 mg PO BID 10/20/16 Mirtazapine 7.5 mg PO QHS 10/20/16 Montelukast [Singulair] 10 mg PO DAILY 10/20/16 Omeprazole 20 mg PO DAILY 10/20/16 Tamsulosin HCl [Flomax] 0.4 mg PO DAILY 10/20/16 Tiotropium [place] [Spiriva 18 MCG] 2 puff INHALATION DAILY 10/20/16 Venlafaxine HCl [Effexor Xr] 225 mg PO DAILY 10/20/16 busPIRone [Buspar] 5 mg PO TID 10/20/16 traZODone [Desyrel] 50 mg PO QHS 10/20/16 Cholecalciferol (VIT D3) [Vitamin D3] 4,000 unit PO DAILY 04/09/17 Docusate Sodium [Colace] 100 mg PO BID PRN 04/09/17 budesonide-formoterol HFA 160 mcg-4.5 mcg/actuation aerosol inhaler 2 puff INHALATION BID 07/27/17 loratadine 10 mg capsule 10 mg PO QDAY #30 cap 07/27/17 albuterol sulfate 2.5 mg/3 mL (0.083 %) solution for nebulization 2.5 mg INHALATION Q4H PRN #75 ml 11/01/17 Atorvastatin Calcium [Lipitor] 40 mg PO QHS #30 tab 11/09/17 Clopidogrel Bisulfate [Plavix] 75 mg PO DAILY #30 tab 11/09/17 Guaifenesin [Mucinex] 1,200 mg PO BID #20 tab 11/09/17 Insulin Glargine [Lantus SoloStar Pen] 5 units SC QHS #1 pen 11/09/17 Prednisone 10 mg PO UD #30 tab 11/09/17 Following Prescrptions Were Given to Patient: Atorvastatin Calcium [Lipitor] 40 mg PO QHS #30 tab Clopidogrel Bisulfate [Plavix] 75 mg PO DAILY #30 tab Insulin Glargine [Lantus SoloStar Pen] 5 units SC QHS #1 pen Prednisone 10 mg PO UD #30 tab Guaifenesin [Mucinex] 1,200 mg PO BID #20 tab Other Amb Orders: Basic Metabolic Profile (BMP) Location: Laboratory Glucometer Location: None Selected [facility] [[facility]] - Please follow up with your Primary Care Physician in: within 2 weeks Please Follow Up With: Dr. Salazar When: Please Follow Up With: Kristie Perdomo PA When: within 2 weeks Disposition: Home with Home Health Minutes spent on discharge:: 50 Patient Condition:: Stable Medical Necessity - Tobacco Use Smoking Status: Former smoker Tobacco Use: Non-smoker Meaningful Use Info Meaningful Use Diagnoses (Choose all that apply): AMI - AMI Aspirin given w/in 24hrs of arrival?: Yes ASA at discharge?: Yes Statins at discharge?: Yes Brayden/ARB at discharge?: Yes Beta Nick at discharge?: Yes Done w/ Acute IL measure.: Yes Code Visit Inpatient E&M: 99462 Disch Hosp
--- NOTE | 2017-11-09 10:00 | EKG12_ITS ---
Test Reason : AM EKG Blood Pressure : / mmHG Vent. Rate : 079 BPM Atrial Rate : 079 BPM P-R Int : 156 ms QRS Dur : 080 ms QT Int : 370 ms P-R-T Axes : 074 -10 -35 degrees QTc Int : 424 ms Normal sinus rhythm Inferior infarct , age undetermined Abnormal ECG When compared with ECG of 08-NOV-2017 03:56, MANUAL COMPARISON REQUIRED, DATA IS UNCONFIRMED Confirmed by YAHAIRA LAWRENCE ([id number]), international editorial producer CARROLL AGUIRRE ([id number]) on 11/14/2017 3:13:04 PM Referred By: RUBÉN Confirmed By:YAHAIRA LAWRENCE
--- NOTE | 2017-11-09 10:11 | CASEMGMT ---
CHACHA spoke w/physician, she states pt was to meet w/hospice, asked about this and home health care for pt. SW called [facility]. As per Booker, pt and family were to meet w/hospice on Monday, but this was cancelled as pt was here. They have an appointment set up for 3pm today with Oanh, are available earlier and can come to the hospital. CHACHA called daughter Fifi. CHACHA confirmed w/Fifi that pt and family in agreement w/hospice services at discharge. SW asked about meeting time, if she would like to keep the 3pm meeting or move it earlier. Fifi would like to keep the meeting at 3pm, agreeable to meet here at the hospital. SW explained this makes more sense to make sure that pt has everything set up for home before going home, daughter states understanding. SW also explained that pt cannot have home health and hospice, daughter states understanding. She states pt is going home with a catheter however and she does not know anything about this. SW explained will let hospice know. CHACHA called Booker back, asked to keep the 3pm meeting time and to have Oanh from hospice come here to meet w/pt and family to get everything set up prior to pt going home. SW also let her know pt is going home w/a catheter and daughter will need assist with this. SW faxed order and clinical information to hospice, also let physician know via text message that pt will go home w/hospice, and that they are meeting at 3pm. No further needs anticipated, pt will go home w/hospice later this afternoon. DAVID Kwan, GROUND WIRER
[2017-11-09] MEDS: Metoprolol Tartrate 25 MG Tablet PO (10:32)
[2017-11-09] MEDS: Montelukast 10 MG Tablet PO (10:33)
[2017-11-09] MEDS: Venlafaxine XR 75 MG Capsule 225 MG PO (10:33)
[2017-11-09] MEDS: Tamsulosin HCl 0.4 MG Capsule PO (10:33)
[2017-11-09] MEDS: guaiFENesin 1,200 MG Tablet 1200 MG PO (10:34)
[2017-11-09] MEDS: Finasteride 5 MG Tablet PO (10:34)
[2017-11-09] MEDS: Clopidogrel Bisulfate 75 MG Tablet PO (10:34)
[2017-11-09] MEDS: Pantoprazole Sodium 20 MG Tablet PO (10:34)
[2017-11-09] MEDS: Loratadine 10 MG Tablet PO (10:35)
[2017-11-09] MEDS: Aspirin E.C. 81 MG Tablet PO (10:35)
[2017-11-09 11:35] LABS: Bedside Glucose 249 mg/dL (70-110)
--- NOTE | 2017-11-10 09:54 | CASEMGMT ---
SW received a message from Oanh from [facility] stating that pt declined hospice referral and agreed to palliative care, would like home health care referral. SW called [facility], spoke w/Kristie, they can open the case and will see pt tomorrow or Monday. DAVID Kwan, COMPUTER SYSTEM TECHNICIAN
== END 2017-11-09 17:25 | disposition home health service (06) | DRG 981 ==
LOC: ED 11-04 00:59 → PCU 11-04 01:11 → ICU 11-07 09:10 → MS2 11-09 07:02
PROVIDERS: Hospitalist; Internal Medicine Cardiovascular Disease; Nurse Practitioner Family; Admitting Provider Family Medicine; Emergency Provider Emergency Medicine; Family Provider Internal Medicine; Visit Provider Internal Medicine
DX: J44.1 Chronic obstructive pulmonary disease with (acute) exacerbation (principal); I21.4 Non-ST elevation (NSTEMI) myocardial infarction; J96.21 Acute and chronic respiratory failure with hypoxia; Z66 Do not resuscitate; N40.0 Benign prostatic hyperplasia without lower urinary tract symptoms; F41.9 Anxiety disorder, unspecified; Z99.81 Dependence on supplemental oxygen; E78.5 Hyperlipidemia, unspecified; I12.9 Hypertensive chronic kidney disease with stage 1 through stage 4 chronic kidney disease, or unspecified chronic kidney disease; N18.3 Chronic kidney disease, stage 3 (moderate); E11.22 Type 2 diabetes mellitus with diabetic chronic kidney disease; I25.10 Atherosclerotic heart disease of native coronary artery without angina pectoris; I25.84 Coronary atherosclerosis due to calcified coronary lesion; Z87.891 Personal history of nicotine dependence; J45.50 Severe persistent asthma, uncomplicated
CPT/HCPCS: 36415; 71046; 75625; 80048; 80053; 80061; 81001; 82962; 83036; 83540; 83550; 83735; 84484; 85025; 85027; 85347; 85610; 85730; 87633; 92928; 93005; 93306; 93458; 94640; 94667; 94668; 97110; 97116; 97161; 97166; 97530; 97802; 99152; 99153; 99283; J7030; J7040; Q9957; Q9967; A4216; C1725; C1769; C1874; C1887; C1894; C9600; J0583

== ENCOUNTER → 2017-11-11 18:16 | Outpatient (CLI) | payer MEDICARE, SELFPAY ==
[2017-11-11 18:34] LABS: Anion Gap 9 (5-15); BUN 23 mg/dL (7-18); BUN/Creat Ratio 17.8 RATIO (10-20); Calcium,Total 9.4 mg/dL (8.5-10.1); Chloride 103 mmol/L (98-107); Creatinine, Serum 1.29 mg/dL (0.70-1.30); EST Glomerular Filtration Rate 57 mL/min (>60); Est Glom Filt Rate - Afr Amer 68 mL/min (>60); Glucose 188 mg/dL (74-106); Potassium 3.7 mmol/L (3.5-5.1); Sodium Level 139 mmol/L (136-145)
== END ==
PROVIDERS: Family Provider Internal Medicine; Visit Provider Internal Medicine
DX: N18.9 Chronic kidney disease, unspecified (principal)
CPT/HCPCS: 80048

== ENCOUNTER → 2017-11-28 10:30 | Outpatient (CLI) | payer MEDICARE, OTHER, SELFPAY ==
--- NOTE | 2017-11-28 10:34 | STEWCON_ITS ---
Reason For Study: CAD Stress Results Protocol: Dobutamine Stress Echo Maximum Predicted HR: 137 bpm Target HR: 116 bpm% Maximum Pre dicted HR: 85 % DurationHeart Rate Stage (mm:ss) (bpm) BPCom ment Baseline 108 121/6 8No Chest Pain; Definity Diluted 3 ML Given DSE 10 MCG 3:19 11 0 127/73No Chest Pain DSE 20 MCG 4:23 11 6 112/52No Chest Pain Recovery 108 116/7 5No Chest Pain Stress Duration: 7:42 mm:ss Maximum Stress HR: 116 bpmM ETS: 1 Baseline Echocardiogram Findings The estimated ejection fraction is 65 %. Stress Echo Wall motion Data Resting WMIntermediate WMStress WM Resting Wall Motion Wall Motion Stress No regional wall motion No regional wall motion abnormalities noted. abnormalities noted. EKG Data Normal intervals are noted. The patient was titrated from 10 mcg to a maximun of 30 mcg of dobutamine during the stress. The maximum heart rate attained was 121 beats per minute. This was 88% of maximum predicted heart rate. During dobutamine infusion, there were no ST or T wave changes noted to suggest ischemia. No arrhythmias noted. No clinical angina was noted. Interpretation Summary The estimated ejection fraction is 65 %. Normal, adequate, dobutamine echocardiogram. Negative for ischemia by EKG and echocardiographic criteria. No anginal symptoms noted. No arrhythmias noted. Appropriate blood pressure response to dobutamine. Final LVEF of 75%. Decreased sensitivity due to poor echo windows requiring Definity enhancing agent. Test terminated due to the attainment of target heart rate. No complications. Ordering Physician: Kristie Perdomo Referring Physician: Tip Rowan Performed By: Shanda Sauceda, GEORGIE, RVT
== END ==
PROVIDERS: Family Provider Internal Medicine; PCP Internal Medicine; Referring Provider Physician Assistant Medical; Visit Provider Physician Assistant Medical
DX: I25.10 Atherosclerotic heart disease of native coronary artery without angina pectoris (principal)
CPT/HCPCS: 93017; 93350; J7030; Q9957; A4216; C8928

== ENCOUNTER 2017-12-30 00:28 | Inpatient (IN) | payer MEDICARE, SELFPAY ==
[2017-12-30] VITALS (46 sets, daily range): BP systolic 101–206; BP diastolic 64–113; PULSE 68–136; RESP 12–38; TEMP 36.2–36.8; O2SAT 88–100; BMI 25.6; BMI 25.1
--- NOTE | 2017-12-30 00:31 | EKG12_ITS ---
Test Reason : SOB Blood Pressure : / mmHG Vent. Rate : 117 BPM Atrial Rate : 117 BPM P-R Int : 156 ms QRS Dur : 078 ms QT Int : 312 ms P-R-T Axes : 075 -09 039 degrees QTc Int : 435 ms Sinus tachycardia Possible Inferior infarct , age undetermined Abnormal ECG Confirmed by YAHAIRA LAWRENCE ([id number]), editorial director CARROLL AGUIRRE ([id number]) on 01/02/2018 8:33:52 AM Referred By: DEBRA Confirmed By:YAHAIRA LAWRENCE
--- NOTE | 2017-12-30 00:31 | RAD_ITS ---
STUDY: X-RAY CHEST REASON FOR EXAM: Male, 82 years old. Chronic shortness of breath. TECHNIQUE: Single AP portable view of the chest. COMPARISON: November 03, 2017. FINDINGS: Cardiac monitoring leads are present. There is hyperinflation of the lungs consistent with chronic obstructive lung disease (COPD). There is vague increased attenuation throughout the right hemithorax, possibly related to something outside the patient artifactual. There is no demonstrated pleural abnormality. Normal size heart. There are calcified mediastinal and hilar lymph nodes. There is prominence of the pulmonary hilar arteries without peripheral pulmonary vascular congestion. There is atherosclerotic calcification of the aortic arch with tortuosity. There is demineralization of the osseous structures. Normal visualized ribs, clavicles, and shoulders. There is no demonstrated abnormality of the visualized soft tissue structures of the upper abdomen. RAD/Chest 1 View (Portable) IMPRESSION: COPD without radiographic evidence of acute cardiopulmonary disease. Electronically Signed: Grace Gutierrez MD at 1:26 EDT , Service support ,
[2017-12-30] MEDS: MethylPREDNISolone 125 MG/2 ML Vial IV (00:37)
[2017-12-30] MEDS: Ipratropium/Albuterol Sulfate 3 ML AMPUL.NEB INHALATION ×7 (00:37→23:30)
--- NOTE | 2017-12-30 00:42 | ED.VISSUMM ---
- ER Visit Summary Date of Service: 12/30/17 Chief Complaint: Shortness of breath History of Present Illness: The patient is a 82 M with history of rather severe COPD who is on 2 L of oxygen at home presents to the emergency department shortness of breath. Patient has been short of breath for about 3 or 4 days. He had scant cough without productive sputum. He denies any fevers or chills. He states that yesterday, he was actually feeling improved. Throughout the day and overnight, his symptoms worsened. He states just feels like he cannot breathe. He has tried his rescue inhaler with little relief. He has had no chest pain. The patient did have a recent heart catheterization about 7 weeks ago with stenting to his RCA. He has been compliant with his Plavix. He denies any leg edema or orthopnea. Physical Examination: Vital signs reviewed General: Well-nourished, well-developed Head: Normocephalic, atraumatic Eyes: Pupils equal and reactive, extraocular muscles intact Neck, supple, no lymphadenopathy Heart: Regular rate and rhythm Respiratory: Mild distress, diffuse wheezing throughout Abdomen: Soft, nontender, nondistended, no peritoneal signs Back: Nontender Extremities: Nontender, no edema, no cords Skin: Normal color no rash Neuro: Alert and oriented, no focal or lateralizing deficits Test Results: [] Emergency Department Course and Treatment: EKG was obtained on patient arrival. It demonstrated sinus tachycardia without acute ischemia. The patient had no complaints of chest pain. IV was established. Screening labs were obtained. His x-ray shows no evidence of focal infiltrative process. The patient was started on BiPAP immediately with improvement of his aeration and comfort. He had almost complete resolution of his tachypnea and improvement of his heart rate. He was given IV fluids. He was started on IV Levaquin to cover for COPD exacerbation. He does have a marked leukocytosis and elevated lactate. My suspicion is that the lactate is likely secondary to tissue hypoxia as the patient was hypoxic on his home oxygen on arrival. At this time, he is markedly improved. However, he is still requiring BiPAP given his tachypnea and to improve his respiratory comfort. The patient is going to require admission to the intensive care unit. He was discussed with the hospitalist. Treatment Plan: [] Disposition: Admission Impression: 1. Acute COPD exacerbation 2. Severe sepsis 3. Hypoxia This note was generated with Dragon dictation software. It may contain incorrect words, spelling, and punctuation that were not noted in review of the chart prior to signing ED Disposition - Plan for ED Patient: Chief Complaint: Shortness of Breath [facility]errals: [facility] [Primary Care Provider] -
[2017-12-30] MEDS: Albuterol 2.5 MG/3 ML VIAL.NEB. INHALATION ×3 (00:47)
[2017-12-30 00:58] LABS: Absolute Lymphocyte Count 3.37 X10^3/ul (0.83-4.51); Absolute Neutrophil Count 15.9 X10^3/uL (2.0-7.7); Basophil# 0.04 X10^3/uL; Basophil% 0.2 % (0-1); Eosinophil# 1.37 X10^3/uL; Eosinophils% 6.2 % (0-5); Hematocrit 41.6 % (40-54); Hemoglobin 12.4 g/dl (13.0-16.5); Lymphocyte # 3.37 X10^3/ul (4.0); Lymphocyte % 15.3 % (19-41); Mean Corp Hgb Conc 29.8 g/gl (32-36); Mean Corpuscular Hgb 26.1 pg (27.0-32.0); Mean Corpuscular Volume 87.6 fL (80-94); Mean Platelet Vol. 9.1 fl (6.2-12.0); Monocyte# 1.27 X10^3/uL; Monocyte% 5.8 % (0-10); Neutrophil # 15.86 X10^3/uL (2.7-7.7); Platelet Count 290 K/mm3 (150-450); RBC Distribution Width CV 15.2 % (11.6-14.6); RBC Distribution Width SD 48.7 fl (35.1-43.9); Red Blood Count 4.75 M/mm3 (4.6-6.2)
[2017-12-30 01:00] LABS: POSITIVE COUNT NO; POSITIVE DIFFERENTIAL NO; POSITIVE MORPHOLOGY NO
--- NOTE | 2017-12-30 01:09 | ED.RN ---
called [facility], spoke to renée, they have no open beds at this time to admit this pt. they will follow up in the morning.
[2017-12-30] MEDS: levoFLOXacin IV 750 MG/150 ML BAG 100 MG IV (01:10)
[2017-12-30 01:11] LABS: Anion Gap 8 (5-15); BUN 20 mg/dL (7-18); BUN/Creat Ratio 13.9 RATIO (10-20); Chloride 103 mmol/L (98-107); Creatinine, Serum 1.44 mg/dL (0.70-1.30); EST Glomerular Filtration Rate 50 mL/min (>60); Est Glom Filt Rate - Afr Amer 60 mL/min (>60); Estimated Creatinine Clearance 30.02 ml/min; Glucose 227 mg/dL (74-106); Potassium 4.3 mmol/L (3.5-5.1); Sodium Level 139 mmol/L (136-145)
--- NOTE | 2017-12-30 01:14 | ED.RN ---
dr cole made aware of lactic acid of 6.0.
--- NOTE | 2017-12-30 01:28 | PCM.HP.STD ---
Problem List (1) Acute respiratory failure with hypoxia Status: Acute (2) COPD exacerbation Status: Acute (3) Severe sepsis Status: Acute (4) Pure hypercholesterolemia Status: Chronic (5) S/P coronary artery stent placement Status: Chronic Comment: Successful PTCA/SHASTA of the mid RCA with a 3.5 x 38 Promus Synergy, using double wire technique; 85%-->0%, all post dilated with a 3.5 x 12 NC Balloon. Successful PTCA/SHASTA of the Proximal RCA with a 3.5 x 20 Promus Synergy; 75%-->0%, no dissection 11/2017 (6) NSTEMI (non-ST elevated myocardial infarction) Status: Chronic (7) CAD (coronary artery disease) Status: Chronic Qualifiers: Coronary Disease-Associated Artery/Lesion type: [place] artery [place] vs. transplanted heart: [place] heart Associated angina: without angina Qualified Code(s): I25.10 - Atherosclerotic heart disease of [place] coronary artery without angina pectoris Comment: Successful PTCA/SHASTA of the mid RCA with a 3.5 x 38 Promus Synergy, using double wire technique; 85%-->0%, all post dilated with a 3.5 x 12 NC Balloon. Successful PTCA/SHASTA of the Proximal RCA with a 3.5 x 20 Promus Synergy; 75%-->0%, no dissection 11/2017. (8) Asthma, severe persistent Status: Chronic Qualifiers: Asthma complication type: unspecified Qualified Code(s): J45.50 - Severe persistent asthma, uncomplicated (9) Chronic respiratory failure with hypoxia Status: Chronic Comment: 2L NC baseline home usage. (10) BPH (benign prostatic hypertrophy) Status: Chronic Qualifiers: Lower urinary tract symptom presence: unspecified whether lower urinary tract symptoms present Qualified Code(s): N40.0 - Benign prostatic hyperplasia without lower urinary tract symptoms (11) Hypertension Status: Chronic Qualifiers: Hypertension type: essential hypertension Qualified Code(s): I10 - Essential (primary) hypertension (12) Anxiety disorder Status: Chronic Qualifiers: Anxiety disorder type: unspecified anxiety disorder Qualified Code(s): F41.9 - Anxiety disorder, unspecified (13) COPD (chronic obstructive pulmonary disease) Status: Chronic Qualifiers: COPD type: unspecified COPD Qualified Code(s): J44.9 - Chronic obstructive pulmonary disease, unspecified History of Present Illness Date of Admission: 12/30/17 Chief Complaint: Malaise, Dyspnea The patient is a 82 y/o M w/ PMHx: CKD stage III, Chronic COPD/Asthma w/ Chronic Hypoxic Respiratory Failure, HTN, GLENNA, Anxiety and Depression, BPH, Former Tobacco use who presents to the [facility] ED on 12/30/17 with history of progressively worsening dyspnea, non-productive cough and wheezing x 3-4 days and noted upon ED presentation had run out of his oxygen supplementation. He had recently been seen per Cardiology and was noting dyspnea at that time with planned evaluation on day prior to current presentation; however, he had felt improved and cancelled his appointment, but abruptly worsened. Upon presentation he was lethargic and encephalopathic, but improved on BIPAP. Work-up in the ED included T 97.2, heart rate 131, respiratory rate 34, 88% on nasal cannula--> 97% on 40% BiPAP, CBC with WBC 22, hemoglobin 12.4, platelet 290 with left shift, BMP with BUN/creatinine 20/1.44, glucose 227, lactic acid 6, troponin <0.015, BNP 106.2, chest x-ray with chronic COPD changes. In ED patient administered IV Solu-Medrol, DuoNeb, albuterol, normal saline, Levaquin. Past Medical History Past Medical History (Chronic Problems): Chronic Problems (Last Updated 12/28/17 @ 15:57 by Peg Cohen) Pure hypercholesterolemia (Chronic) S/P coronary artery stent placement (Chronic) Successful PTCA/SHASTA of the mid RCA with a 3.5 x 38 Promus Synergy, using double wire technique; 85%-->0%, all post dilated with a 3.5 x 12 NC Balloon. Successful PTCA/SHASTA of the Proximal RCA with a 3.5 x 20 Promus Synergy; 75%-->0%, no dissection 11/2017 NSTEMI (non-ST elevated myocardial infarction) (Chronic) CAD (coronary artery disease) (Chronic) Successful PTCA/SHASTA of the mid RCA with a 3.5 x 38 Promus Synergy, using double wire technique; 85%-->0%, all post dilated with a 3.5 x 12 NC Balloon. Successful PTCA/SHASTA of the Proximal RCA with a 3.5 x 20 Promus Synergy; 75%-->0%, no dissection 11/2017. Asthma, severe persistent (Chronic) Stage 4 very severe COPD by GOLD classification (Chronic) FEV1 45% COPD (chronic obstructive pulmonary disease) (Chronic) SOB (shortness of breath) (Chronic) Chronic respiratory failure with hypoxia (Chronic) 2L NC baseline home usage. COPD exacerbation (Chronic) BPH (benign prostatic hypertrophy) (Chronic) Hypertension (Chronic) Anxiety disorder (Chronic) COPD (chronic obstructive pulmonary disease) (Chronic) Medical History: Medical History (Last Updated 12/28/17 @ 15:57 by Peg No) Pure hypercholesterolemia (Chronic) E78.00 CAD (coronary artery disease) (Chronic) I25.10 Successful PTCA/SHASTA of the mid RCA with a 3.5 x 38 Promus Synergy, using double wire technique; 85%-->0%, all post dilated with a 3.5 x 12 NC Balloon. Successful PTCA/SHASTA of the Proximal RCA with a 3.5 x 20 Promus Synergy; 75%-->0%, no dissection 11/2017. COPD (chronic obstructive pulmonary disease) (Chronic) J44.9 SOB (shortness of breath) (Chronic) R06.02 Chronic respiratory failure with hypoxia (Chronic) J96.11 2L NC baseline home usage. COPD exacerbation (Chronic) J44.1 BPH (benign prostatic hypertrophy) (Chronic) N40.0 Hypertension (Chronic) I10 Anxiety disorder (Chronic) F41.9 Depression F32.9 Glaucoma H40.9 Hearing loss H91.90 GLENNA (obstructive sleep apnea) G47.33 Cataracts, bilateral H26.9 Allergies No Known Allergies Allergy (Verified 12/30/17 00:34) Home Medications: Ambulatory Orders Medication Instructions Recorded Albuterol IH (ProAir) [Proair Hfa] 2 puff INHALATION Q4H PRN PRN 10/20/16 Aspirin [Aspirin EC] 81 mg PO DAILY 10/20/16 Dorzolamide HCl [Trusopt] 1 drp OP TID 10/20/16 Finasteride [Proscar] 5 mg PO DAILY 10/20/16 Latanoprost 1 drp OP QHS 10/20/16 Metoprolol Tartrate 25 mg PO BID 10/20/16 Mirtazapine 7.5 mg PO QHS 10/20/16 Montelukast [Singulair] 10 mg PO DAILY 10/20/16 Omeprazole 20 mg PO DAILY 10/20/16 Tamsulosin HCl [Flomax] 0.4 mg PO DAILY 10/20/16 Tiotropium [place] [Spiriva 18 MCG] 2 puff INHALATION DAILY 10/20/16 Venlafaxine HCl [Effexor Xr] 225 mg PO DAILY 10/20/16 busPIRone [Buspar] 5 mg PO TID 10/20/16 traZODone [Desyrel] 50 mg PO QHS 10/20/16 Cholecalciferol (VIT D3) [Vitamin 4,000 unit PO DAILY 04/09/17 D3] Docusate Sodium [Colace] 100 mg PO BID PRN 04/09/17 budesonide-formoterol HFA 160 2 puff INHALATION BID 07/27/17 mcg-4.5 mcg/actuation aerosol inhaler Atorvastatin Calcium [Lipitor] 40 mg PO QHS #30 tab 11/09/17 Clopidogrel Bisulfate [Plavix] 75 mg PO DAILY #30 tab 11/09/17 Guaifenesin [Mucinex] 1,200 mg PO BID #20 tab 11/09/17 albuterol sulfate 2.5 mg/3 mL 2.5 mg INHALATION Q4H PRN #75 ml 12/04/17 (0.083 %) solution for nebulization HANDICAP PLACARD #1 ea 12/28/17 insulin glargine (U-100) 100 8 unit SC QHS ml 12/28/17 unit/mL (3 mL) subcutaneous pen prednisone 10 mg tablet 10 mg PO DAILY 12/28/17 Surgical History: Surgical History (Last Reviewed 12/28/17 @ 15:57 by Peg Cohen) S/P coronary artery stent placement (Chronic) Z95.5 Successful PTCA/SHASTA of the mid RCA with a 3.5 x 38 Promus Synergy, using double wire technique; 85%-->0%, all post dilated with a 3.5 x 12 NC Balloon. Successful PTCA/SHASTA of the Proximal RCA with a 3.5 x 20 Promus Synergy; 75%-->0%, no dissection 11/2017 Cataract surgery 2011 History of appendectomy Z98.890, Z90.49 1942 Surgical History: appendectomy, cataract Psychiatric History: Anxiety, Depression Lives: With Family - Lives with his daughter and her family. Smoking Status: Former smoker Tobacco Use: Non-smoker Alcohol: None Drugs: None - *Family History Maternal Family History: Family History (Last Reviewed 12/28/17 @ 15:57 by Peg Nolt) Grandfather Cancer Father CVA (cerebral vascular accident) History Items: - - mother lived to age 101 Paternal Family History: Family History (Last Reviewed 12/28/17 @ 15:57 by Peg Nolt) Grandfather Cancer Father CVA (cerebral vascular accident) History Items: Stroke - CVA in older years, at age 90, - - father lived to be 90 Offspring Family History: Family History (Last Reviewed 12/28/17 @ 15:57 by Peg Nolt) Grandfather Cancer Father CVA (cerebral vascular accident) Review of Systems Constitutional: Reports: Malaise, Weakness, Fatigue. Denies: Chills, Fever, Weight Change HEENT: Denies: Head Aches, Sinus Congestion, Sinus Drainage Cardiovascular: Denies: Chest Pain, Palpitations Respiratory: Reports: Cough, Shortness of Breath, Shortness of breath at rest, Shortness of breath upon exertion, Wheezing. Denies: Sputum production Gastrointestinal: Denies: Abdominal Pain, Nausea, Vomiting Genitourinary: Denies: Dysuria Musculoskeletal: Denies: Joint Pain, Joint Tenderness Skin: Denies: Rash, Wounds Neurological: Reports: Confusion. Denies: Focal weakness, Numbness, Tingling Psychiatric: Reports: Anxiety. Denies: Depression, Homicidal Ideations, Suicidal Ideations Hematologic/ Lymphatic: Reports: Easy Bruising, Easy Bleeding VTE Information - Inpt Only VTE Present on Admission: No VTE Mechan Device Prophylaxis: SCD's VTE Pharm Prophylaxis ordered?: Yes Patient Problems: Active and Suspected Problems (Last Updated 12/28/17 @ 15:57 by Peg Nolt) Acute respiratory failure with hypoxia (Acute) COPD exacerbation (Acute) Severe sepsis (Acute) Subjective: Seated upright in the ED bed, fatigued appearance but improved since initial presentation, on BIPAP. Objective: Physical Examination: General: awake, alert, oriented x [address], year and month, prior had been very lethargic and confused, remains cooperative, seated upright in the ED bed, BIPAP in place, notes feeling more comfortable, still accessory muscle usage, still increased RR. Skin: normal color, turgor, no icterus, cyanosis. HEENT: AT/NC, EOMI, PERRLA, dry MM, BIPAP in place, no carotid bruits or JVD noted. Lungs: Diffusely decreased BS, coarse, expiratory wheezing, BIPAP in place, improved but still increased RR, accessory muscle usage, increased work of breathing. Heart: Tachycardic with regular rhythm; no gallop, rub audible. Abdomen: soft, NTTP, ND, normal BS, no HSM. Extremities: no cyanosis, clubbing, or edema. Neurological: patient awake, alert, oriented as noted; cognitive function improved, now appears baseline intact; pupils equally reactive to light and accomodation; cranial nerves II-XII grossly normal, moving all 4 extremities, no focal deficits, strength severely globally decreased secondary to acute presentation. Psychiatric: affect appears fatigued, no acute evidence of depressive or anxiety feelings. - Physical Exam Vital Signs Temp Pulse Resp Pulse Ox 97.2 F L 124 H 32 H 97 12/30/17 00:31 12/30/17 00:35 12/30/17 00:40 12/30/17 00:40 Oxygen Delivery Method Bi-pap Weight: 140 lb Body Mass Index (BMI) 25.6 Laboratory Tests Past 24 Hrs 12/30/17 12/30/17 12/30/17 00:34 00:34 00:34 WBC 22.0 H RBC 4.75 Hgb 12.4 L Hct 41.6 MCV 87.6 MCH 26.1 L MCHC 29.8 L RDW 15.2 H RDW Differential 48.7 H Plt Count 290 MPV 9.1 Immature Gran % (Auto) 0.500 Neut % (Auto) 72.0 H Lymph % (Auto) 15.3 L [place] % (Auto) 5.8 Eos % (Auto) 6.2 H Baso % (Auto) 0.2 Absolute Neuts (auto) 15.9 H Absolute Lymphs (auto) 3.37 Total Counted Not Reportable Sodium 139 Potassium 4.3 Chloride 103 Carbon Dioxide 28.0 Anion Gap 8 BUN 20 H Creatinine 1.44 H Estim Creat Clear Calc 30.02 Est GFR (MDRD) Af Amer 60 Est GFR (MDRD) Non-Af 50 L BUN/Creatinine Ratio 13.9 Glucose 227 H Lactic Acid 6.0 H* Calcium 9.0 Troponin I < 0.015 B-Natriuretic Peptide 12/30/17 00:34 WBC RBC Hgb Hct MCV MCH MCHC RDW RDW Differential Plt Count MPV Immature Gran % (Auto) Neut % (Auto) Lymph % (Auto) [place] % (Auto) Eos % (Auto) Baso % (Auto) Absolute Neuts (auto) Absolute Lymphs (auto) Total Counted Sodium Potassium Chloride Carbon Dioxide Anion Gap BUN Creatinine Estim Creat Clear Calc Est GFR (MDRD) Af Amer Est GFR (MDRD) Non-Af BUN/Creatinine Ratio Glucose Lactic Acid Calcium Troponin I B-Natriuretic Peptide Pending Assessment/Plan All Active Problems (Last Updated 12/28/17 @ 15:57 by Peg Cohen) Acute respiratory failure with hypoxia (Acute) COPD exacerbation (Acute) Severe sepsis (Acute) Chest pain (Acute) The patient is a 82 y/o M w/ PMHx: CKD stage III, Chronic COPD/Asthma w/ Chronic Hypoxic Respiratory Failure, HTN, GLENNA, Anxiety and Depression, BPH, Former Tobacco use who presents to the [facility] ED on 12/30/17 with history of progressively worsening dyspnea, non-productive cough and wheezing x 3-4 days and noted upon ED presentation had run out of his oxygen supplementation secondary to increasing his usage aggressively. (1) Severe Sepsis secondary to Acute on Chronic Hypoxic Respiratory Failure secondary to Acute on chronic COPD exacerbation: ED presentation w/ tachypnea, increased work of breathing, accessory muscle usage, LA 6.0, CXR w/ chronic changes, CBC on admission w/ 22 with L shift. Will admit to ICU, maintain on BIPAP with transition as able to oxygen with wean as tolerated to home oxygen supplementation, maintain on aggressive hydrate given severe sepsis presentation, trend LA, continue ATC duonebs, PRN albuterol, IV methylprednisolone, HOB, IS parameters, IV Zosyn and Vanc w/ pending MRSA assessment and discontinuation of vanc if negative given recent admission although currently no obvious infiltrate on imaging with pending sputum cultures and respiratory viral panel. Repeat CXR in AM following aggressive hydration. ICU physician consulted and contacted regarding admission. (2) Recent NSTEMI: Maintain on ass, plavix, metoprolol, statin. Cardiac cath 11/06/2017 w/ severe one-vessel CAD in the right mid RCA with moderate calcifications and 2 tandem lesions, the first lesion is asymmetric at 40% and a second lesion in the mid RCA 90% w/ mid RCA SHASTA PCI 11/07/2017, recommendation for tobacco cessation, planned aspirin indefinitely, plavix x 12 months, follow-up with outpatient w/ dobutamine echo planned to evaluate his LAD and if abnormal noted plan for PCI LAD additionally. (3) Diabetes mellitus type II: Recent HgbA1c 11/08/17 9.3%, new diagnosis during prior admission, started on levemir 5 u QHS at that time, continue home insulin regimen, ADA diet, accu checks w/ ISS. (4) Chronic Kidney Disease Stage III: Admission BUN/Cr 20/1.44, baseline renal function 1.3-1.4, repeat BMP in AM. (5) Hypertension: Continue home regimen including metoprolol, PRN hydralazine. (6) Hyperlipidemia: Continue home statin regimen. (7) BPH: Maintain on home regimen proscar and flomax. (8) Anxiety and Depression: Maintain on home regimen BuSpar, Effexor, trazodone. (9) GERD: PPI. (10) GLENNA: CPAP q HS, currently using BIPAP as noted. (11) DVT Prophylaxis: SCDs, heparin. (12) CODE status: He confirms his daughter is still his HCPOA, discussed CODE status at length including difference between FULL code, DNR-CCA and DNR-CC status and following confirmed he remains DNR-CCA, no intubation. Advanced Care Planning Face to Face Time: 16 minutes. Code Visit Inpatient E&M: 33613 Init Hosp L3 Procedures: 79378 Advncd Care Plan 30 Min
[2017-12-30 01:29] LABS: BNP,B-Type NATRIURETIC PEPTIDE 106.2 pg/mL (0-100)
[2017-12-30] MEDS: 0.9% Normal Saline 1,000 ML 999 ML IV (01:47)
[2017-12-30 03:10] LABS: Magnesium 1.9 mg/dL (1.6-2.6)
[2017-12-30] MEDS: LORazepam 2 MG/ML Syringe 0.5 MG IV ×2 (03:40→10:22)
[2017-12-30] MEDS: 0.9% Normal Saline 1,000 ML 150 ML IV ×3 (03:56→19:09)
[2017-12-30] MEDS: Vancomycin IV 1,000 MG/200 ML BAG 200 MG IV (03:57)
[2017-12-30 04:11] LABS: Allen Test POS; Base Excess -3 mmol/L (-2 to +2); Bicarbonate 22.3 mmol/L (22-26); Blood Gas Specimen Type ART; EPAP 12; FI02 30; IPAP 18; PO2 79 mmHG (75-100); RR 12; SITE R Radial; SO2 95 % (95-99); Time Given 400; Total Carbon Dioxide 23 mmol/L; pCO2 37.8 mmHg (35-45); pH 7.38 (7.35-7.45)
[2017-12-30 04:38] LABS: Absolute Neutrophil Count 16.1 X10^3/uL (2.0-7.7); Basophil# 0.01 X10^3/uL; Basophil% 0.1 % (0-1); Eosinophil# 0.08 X10^3/uL; Eosinophils% 0.5 % (0-5); Hematocrit 37.2 % (40-54); Hemoglobin 11.6 g/dl (13.0-16.5); Lymphocyte % 1.8 % (19-41); Mean Corp Hgb Conc 31.2 g/gl (32-36); Mean Corpuscular Hgb 26.9 pg (27.0-32.0); Mean Corpuscular Volume 86.3 fL (80-94); Monocyte# 0.16 X10^3/uL; Neutrophil # 16.08 X10^3/uL (2.7-7.7); Neutrophil % 96.1 % (47-70); Platelet Count 218 K/mm3 (150-450); RBC Distribution Width SD 46.6 fl (35.1-43.9); Red Blood Count 4.31 M/mm3 (4.6-6.2); White Blood Count 16.7 K/mm3 (4.4-11.0)
[2017-12-30 04:41] LABS: Differential Indicated SCAN CRITERIA MET; POSITIVE COUNT NO; POSITIVE DIFFERENTIAL YES; POSITIVE MORPHOLOGY NO
[2017-12-30 04:42] LABS: Reflex Lactate? Y
--- NOTE | 2017-12-30 04:46 | PCM.RX.CS ---
Consult Pharmacy has been consulted to manage selected antiobiotic: Vancomycin Type of Consult: New start Suspected Infection: Sepsis Prior Doses of Antibiotics Received/Current Regimen: Medications Piperacillin Sod/Tazobactam Sod (Zosyn) 3.375 gm in 50 mls @ 12.5 mls/hr IV Q8 [facility] Labs: Sodium 139 mmol/L (136-145) 12/30/17 00:34 Potassium 4.3 mmol/L (3.5-5.1) 12/30/17 00:34 Chloride 103 mmol/L (98-107) 12/30/17 00:34 Carbon Dioxide 28.0 mmol/L (21.0-32.0) 12/30/17 00:34 Anion Gap 8 (5-15) 12/30/17 00:34 BUN 20 mg/dL (7-18) H 12/30/17 00:34 Creatinine 1.44 mg/dL (0.70-1.30) H 12/30/17 00:34 Est GFR (MDRD) Af Amer 60 mL/min (>60) 12/30/17 00:34 Est GFR (MDRD) Non-Af 50 mL/min (>60) L 12/30/17 00:34 BUN/Creatinine Ratio 13.9 RATIO (10-20) 12/30/17 00:34 Glucose 227 mg/dL (74-106) H 12/30/17 00:34 Weight used for dosin.4 kg Estimated Creatinine Clearance: 30 Goal Trough: 10-15 mcg/mL Pharmacy Plan for Drug Dosing: Pharmacy Service will continue to monitor and adjust dosing as required. Medications Vancomycin HCl 750 mg/ Sodium (Chloride) 265 mls @ 250 mls/hr IV Q24H DANG Discontinued Medications Vancomycin HCl (Vancomycin) 1,000 mg in 200 mls @ 200 mls/hr IV X1 ONE Stop: 12/30/17 04:29 Last Admin: 12/30/17 03:57 Dose: 200 mls/hr Follow-Up Labs: Trough Vancomycin Labs to be done on [date and time ordered]: 06/02 @ 0400
[2017-12-30 04:57] LABS: Anion Gap 11 (5-15); BUN 20 mg/dL (7-18); BUN/Creat Ratio 15.7 RATIO (10-20); Calcium,Total 8.5 mg/dL (8.5-10.1); Chloride 107 mmol/L (98-107); Creatinine, Serum 1.27 mg/dL (0.70-1.30); EST Glomerular Filtration Rate 58 mL/min (>60); Est Glom Filt Rate - Afr Amer 70 mL/min (>60); Estimated Creatinine Clearance 34.04 ml/min; Glucose 183 mg/dL (74-106); Potassium 4.3 mmol/L (3.5-5.1); Sodium Level 141 mmol/L (136-145)
[2017-12-30 05:05] LABS: Differential Comment SCANNED
--- NOTE | 2017-12-30 05:43 | PCM.CON.CC ---
Reason for Consult Date of Consultation: 12/30/17 Reason for Consultation: Acute on chronic respiratory failure History of Present Illness: The patient is an 82-year-old male, with a history as outlined below, who presented to the emergency department on December 30 with worsening shortness of breath over 3-4 days. The patient does have a known history of severe COPD along with chronic hypoxemic respiratory failure, for which he follows with Dr. Shaffer on an outpatient basis. He was last seen in the pulmonary medicine clinic by our nurse practitioner at the end of November 2017. He reports that he has been utilizing Symbicort, Spiriva and a home nebulizer. He also utilizes a chronic daily prednisone dose. The patient admits to experiencing a great deal of anxiety as well. However, he denies the presence of a productive cough. On presentation to the emergency department, the patient was to be afebrile, tachycardic, tachypneic and hypoxic. Initial laboratory evaluation revealed an elevated white blood cell count to 22,000. Chemistry profile revealed evidence of acute kidney injury with a creatinine of 1.44. Serum lactate was elevated to 6.0. Troponin was negative. Plain film chest x-ray revealed no acute cardiopulmonary process. Due to the patient's tenuous respiratory status, he was placed on BiPAP. A follow-up arterial blood gas obtained on BiPAP 18/12 centimeters of water revealed a pH of 7.38 with a PCO2 of 37 and PO2 of 79. The patient received supplemental IV fluids, IV steroids, antibiotics and aerosol treatments. He was subsequently transferred to the medical intensive care unit for ongoing management. Past Medical History Past Medical History (Chronic Problems): Chronic Problems (Last Updated 12/30/17 @ 13:45 by Kalie Garsia) COPD (chronic obstructive pulmonary disease) (Chronic) Stage 4 very severe COPD by GOLD classification (Chronic) FEV1 45% Asthma, severe persistent (Chronic) NSTEMI (non-ST elevated myocardial infarction) (Chronic) Pure hypercholesterolemia (Chronic) S/P coronary artery stent placement (Chronic) Successful PTCA/SHASTA of the mid RCA with a 3.5 x 38 Promus Synergy, using double wire technique; 85%-->0%, all post dilated with a 3.5 x 12 NC Balloon. Successful PTCA/SHASTA of the Proximal RCA with a 3.5 x 20 Promus Synergy; 75%-->0%, no dissection 11/2017 CAD (coronary artery disease) (Chronic) Successful PTCA/SHASTA of the mid RCA with a 3.5 x 38 Promus Synergy, using double wire technique; 85%-->0%, all post dilated with a 3.5 x 12 NC Balloon. Successful PTCA/SHASTA of the Proximal RCA with a 3.5 x 20 Promus Synergy; 75%-->0%, no dissection 11/2017. COPD (chronic obstructive pulmonary disease) (Chronic) SOB (shortness of breath) (Chronic) Chronic respiratory failure with hypoxia (Chronic) 2L NC baseline home usage. COPD exacerbation (Chronic) BPH (benign prostatic hypertrophy) (Chronic) Hypertension (Chronic) Anxiety disorder (Chronic) Medical History: Medical History (Last Updated 12/30/17 @ 13:45 by Kalie Garsia) Pure hypercholesterolemia (Chronic) E78.00 CAD (coronary artery disease) (Chronic) I25.10 Successful PTCA/SHASTA of the mid RCA with a 3.5 x 38 Promus Synergy, using double wire technique; 85%-->0%, all post dilated with a 3.5 x 12 NC Balloon. Successful PTCA/SHASTA of the Proximal RCA with a 3.5 x 20 Promus Synergy; 75%-->0%, no dissection 11/2017. COPD (chronic obstructive pulmonary disease) (Chronic) J44.9 SOB (shortness of breath) (Chronic) R06.02 Chronic respiratory failure with hypoxia (Chronic) J96.11 2L NC baseline home usage. COPD exacerbation (Chronic) J44.1 BPH (benign prostatic hypertrophy) (Chronic) N40.0 Hypertension (Chronic) I10 Anxiety disorder (Chronic) F41.9 Diabetes E11.9 Depression F32.9 Glaucoma H40.9 Hearing loss H91.90 GLENNA (obstructive sleep apnea) G47.33 Cataracts, bilateral H26.9 Allergies No Known Allergies Allergy (Verified 12/30/17 00:34) Home Medications: Ambulatory Orders Medication Instructions Recorded Albuterol IH (ProAir) [Proair Hfa] 2 puff INHALATION Q4H PRN PRN 10/20/16 Aspirin [Aspirin EC] 81 mg PO DAILY 10/20/16 Dorzolamide HCl [Trusopt] 1 drp OP BID 10/20/16 Finasteride [Proscar] 5 mg PO DAILY 10/20/16 Latanoprost 1 drp OP QHS 10/20/16 Metoprolol Tartrate 25 mg PO BID 10/20/16 Montelukast [Singulair] 10 mg PO DAILY 10/20/16 Omeprazole 20 mg PO DAILY 10/20/16 Tamsulosin HCl [Flomax] 0.4 mg PO DAILY 10/20/16 Tiotropium [place] [Spiriva 18 MCG] 2 puff INHALATION DAILY 10/20/16 Venlafaxine HCl [Effexor Xr] 225 mg PO DAILY 10/20/16 busPIRone [Buspar] 5 mg PO TID 10/20/16 traZODone [Desyrel] 50 mg PO QHS 10/20/16 Cholecalciferol (VIT D3) [Vitamin 4,000 unit PO DAILY 04/09/17 D3] Docusate Sodium [Colace] 100 mg PO BID PRN 04/09/17 budesonide-formoterol HFA 160 2 puff INHALATION BID 07/27/17 mcg-4.5 mcg/actuation aerosol inhaler Atorvastatin Calcium [Lipitor] 40 mg PO QHS #30 tab 11/09/17 Clopidogrel Bisulfate [Plavix] 75 mg PO DAILY #30 tab 11/09/17 Guaifenesin [Mucinex] 1,200 mg PO BID #20 tab 11/09/17 albuterol sulfate 2.5 mg/3 mL 2.5 mg INHALATION Q4H PRN #75 ml 12/04/17 (0.083 %) solution for nebulization HANDICAP PLACARD #1 ea 12/28/17 insulin glargine (U-100) 100 8 unit SC QHS ml 12/28/17 unit/mL (3 mL) subcutaneous pen prednisone 10 mg tablet 10 mg PO DAILY 12/28/17 Mirtazapine [Remeron] 15 mg PO QHS 12/30/17 Surgical History: Surgical History (Last Reviewed 12/28/17 @ 15:57 by Pge Cohen) S/P coronary artery stent placement (Chronic) Z95.5 Successful PTCA/SHASTA of the mid RCA with a 3.5 x 38 Promus Synergy, using double wire technique; 85%-->0%, all post dilated with a 3.5 x 12 NC Balloon. Successful PTCA/SHASTA of the Proximal RCA with a 3.5 x 20 Promus Synergy; 75%-->0%, no dissection 11/2017 Cataract surgery 2011 History of appendectomy Z98.890, Z90.49 1942 Surgical History: appendectomy, cataract Psychiatric History: Anxiety, Depression Lives: With Family - Lives with his daughter and her family. Smoking Status: Former smoker Tobacco Use: Non-smoker Alcohol: None Drugs: None - *Family History Maternal Family History: Family History (Last Reviewed 12/28/17 @ 15:57 by Pge Cohen) Grandfather Cancer Father CVA (cerebral vascular accident) History Items: - - mother lived to age 101 Paternal Family History: Family History (Last Reviewed 12/28/17 @ 15:57 by Peg Cohen) Grandfather Cancer Father CVA (cerebral vascular accident) History Items: Stroke - CVA in older years, at age 90, - - father lived to be 90 Offspring Family History: Family History (Last Reviewed 12/28/17 @ 15:57 by Peg Cohen) Grandfather Cancer Father CVA (cerebral vascular accident) History Items: No pertinent history Review of Systems Constitutional: Denies: Chills, Fever Eyes: Denies: Blurred vision, Double vision HEENT: Denies: Head Aches, Sinus Congestion, Sinus Drainage Cardiovascular: Denies: Chest Pain, Palpitations Respiratory: Reports: Shortness of Breath. Denies: Sputum production Gastrointestinal: Denies: Abdominal Pain, Nausea, Vomiting Genitourinary: Denies: Dysuria Musculoskeletal: Denies: Joint Pain, Joint Tenderness Skin: Denies: Rash, Wounds Neurological: Denies: Numbness, Tingling, Focal weakness Psychiatric: Reports: Anxiety Hematologic/ Lymphatic: Denies: Easy Bruising, Easy Bleeding Patient Problems: Active and Suspected Problems (Last Updated 12/30/17 @ 13:45 by Kalie Garsia) Acute respiratory failure with hypoxia (Acute) COPD exacerbation (Acute) Severe sepsis (Acute) Objective: The patient's most recent lab work, culture data and imaging studies have all been personally reviewed. Blood cultures and respiratory viral panel are currently pending. - Physical Exam General: Alert, Cooperative, - - Currently tolerating BiPAP without issue. HEENT: Atraumatic, PERRLA Oral: No Gingival or Mucosal Lesions/ Ulcerations Neck: Supple, No Nodes, Trachea Midline Lungs: Tachypneic, - - Globally diminished air movement bilaterally with faint end expiratory wheeze. Cardiovascular: Normal S1, Normal S2, No murmurs, Tachycardic Abdomen: Bowel Sounds Present, Soft, Non Tender Extremities: No clubbing, No cyanosis, No edema Skin: No breakdown Musculoskeletal: No Tenderness to Palpation of Joints or Extremities Lymphatic: No Cervical, Supraclavicular, or Inguinal Adenopathy Neurological: Cranial nerves II-XII grossly intact, Neuro grossly intact Psych/Mental Status: Anxious Vital Signs Temp Pulse Resp BP Pulse Ox 98.2 F 107 H 31 H 101/65 97 12/30/17 04:31 12/30/17 05:00 12/30/17 04:31 12/30/17 04:31 12/30/17 04:31 Oxygen Flow Rate (L/min) 4 Oxygen Delivery Method Bi-pap Weight: 137 lb 9.095 oz Body Mass Index (BMI) 25.1 Laboratory Tests Past 24 Hrs 12/30/17 12/30/17 12/30/17 00:34 00:34 00:34 WBC 22.0 H RBC 4.75 Hgb 12.4 L Hct 41.6 MCV 87.6 MCH 26.1 L MCHC 29.8 L RDW 15.2 H RDW Differential 48.7 H Plt Count 290 MPV 9.1 Immature Gran % (Auto) 0.500 Neut % (Auto) 72.0 H Lymph % (Auto) 15.3 L [place] % (Auto) 5.8 Eos % (Auto) 6.2 H Baso % (Auto) 0.2 Absolute Neuts (auto) 15.9 H Absolute Lymphs (auto) 3.37 Total Counted Not Reportable Differential Comment Specimen Type Sample Site pH Bicarbonate Actual POC Total CO2 Base Excess O2 Saturation O2 % ABG pCO2 ABG pO2 Blayne Test Respiration Rate O2 Delivery Device EPAP IPAP Blood Gas Notified Whom Blood Gas Notified Time Sodium 139 Potassium 4.3 Chloride 103 Carbon Dioxide 28.0 Anion Gap 8 BUN 20 H Creatinine 1.44 H Estim Creat Clear Calc 30.02 Est GFR (MDRD) Af Amer 60 Est GFR (MDRD) Non-Af 50 L BUN/Creatinine Ratio 13.9 Glucose 227 H Lactic Acid 6.0 H* Calcium 9.0 Magnesium Troponin I < 0.015 B-Natriuretic Peptide MRSA (PCR) 12/30/17 12/30/17 12/30/17 00:34 00:34 04:06 WBC RBC Hgb Hct MCV MCH MCHC RDW RDW Differential Plt Count MPV Immature Gran % (Auto) Neut % (Auto) Lymph % (Auto) [place] % (Auto) Eos % (Auto) Baso % (Auto) Absolute Neuts (auto) Absolute Lymphs (auto) Total Counted Differential Comment Specimen Type ART Sample Site R Radial pH 7.38 Bicarbonate Actual 22.3 POC Total CO2 23 Base Excess -3 L O2 Saturation 95 O2 % 30 ABG pCO2 37.8 ABG pO2 79 Blayne Test POS Respiration Rate 12 O2 Delivery Device Bi / C PAP EPAP 12 IPAP 18 Blood Gas Notified Whom HOSP Blood Gas Notified Time 400 Sodium Potassium Chloride Carbon Dioxide Anion Gap BUN Creatinine Estim Creat Clear Calc Est GFR (MDRD) Af Amer Est GFR (MDRD) Non-Af BUN/Creatinine Ratio Glucose Lactic Acid Calcium Magnesium 1.9 Troponin I B-Natriuretic Peptide 106.2 H MRSA (PCR) 12/30/17 12/30/17 12/30/17 04:10 04:15 04:15 WBC 16.7 H RBC 4.31 L Hgb 11.6 L Hct 37.2 L MCV 86.3 MCH 26.9 L MCHC 31.2 L RDW 15.0 H RDW Differential 46.6 H Plt Count 218 MPV 9.0 Immature Gran % (Auto) 0.500 Neut % (Auto) 96.1 H Lymph % (Auto) 1.8 L [place] % (Auto) 1.0 Eos % (Auto) 0.5 Baso % (Auto) 0.1 Absolute Neuts (auto) 16.1 H Absolute Lymphs (auto) 0.30 L Total Counted Not Reportable Differential Comment SCANNED Specimen Type Sample Site pH Bicarbonate Actual POC Total CO2 Base Excess O2 Saturation O2 % ABG pCO2 ABG pO2 Blayne Test Respiration Rate O2 Delivery Device EPAP IPAP Blood Gas Notified Whom Blood Gas Notified Time Sodium 141 Potassium 4.3 Chloride 107 Carbon Dioxide 23.0 Anion Gap 11 BUN 20 H Creatinine 1.27 Estim Creat Clear Calc 34.04 Est GFR (MDRD) Af Amer 70 Est GFR (MDRD) Non-Af 58 L BUN/Creatinine Ratio 15.7 Glucose 183 H Lactic Acid Calcium 8.5 Magnesium Troponin I B-Natriuretic Peptide MRSA (PCR) Pending Clinical Impression(s) from Imaging Studies Chest X-Ray 12/30/17 00:31 IMPRESSION: COPD without radiographic evidence of acute cardiopulmonary disease. Electronically Signed: Grace Gutierrez MD at 1:26 EDT , Service support , Assessment/Plan Active and Suspected Problems (Last Updated 12/30/17 @ 13:45 by Kalie Garsia) Acute respiratory failure with hypoxia (Acute) COPD exacerbation (Acute) Severe sepsis (Acute) RECOMMENDATIONS: 1. Wean from BiPAP as tolerated. 2. Antibiotics can be discontinued from my perspective. 3. Continue baseline anxiolytic medications. 4. Wean supplemental oxygen to maintain saturations 88-92%. 5. Continue scheduled bronchodilators and steroids. IMPRESSIONS: 1. Acute on chronic hypoxemic respiratory failure The patient presented to the hospital with worsening shortness of breath over several days duration. He does follow with Dr. Shaffer on an outpatient basis and has known stage IV COPD with persistent systems despite triple therapy inhaler regimen and supplemental oxygen. The patient is prescribed a 10 mg chronic daily dose. Per documentation from the pulmonary medicine office, the patient was referred to palliative care previously. However, upon my discussion with the patient this morning, he denies being active with them. Regardless, the patient has responded appropriately to the use of noninvasive positive pressure ventilation. Although the radiology report did indicate potential right basilar consolidation or atelectasis, per my review of the patient's chest imaging, it does not appear that he has an acute infectious process evident. I agree with checking a respiratory viral panel. From my perspective, I would discontinue antibiotics and continue to monitor the patient clinically. Continue IV steroids as ordered. Wean from BiPAP as tolerated. 2. Acute kidney injury Likely prerenal in etiology, as the patient has responded to gentle IV fluid hydration. Urine output is appropriate. No indication for renal replacement therapy at this time. 3. Lactic acidemia Low clinical index of suspicion for underlying pulmonary infectious process. Suspect that it was the patient's increased work of breathing which led to the lactic acidemia. 4. Anxiety/depression The patient has a great deal of anxiety and depression at baseline. He should ideally be following with palliative care. Recommend weaning from BiPAP so that his baseline anxiolytic medications can be restarted. 5. Coronary artery disease/BPH/hypertension/allergic rhinitis Complicates care, management, recovery and prognosis. Likely okay to continue home medications as ordered. TIME: 35 minutes of critical care time, independent of procedures, was spent addressing the patient's acute on chronic hypoxemic respiratory failure, acute kidney injury, lactic acidemia, anxiety, depression, review of all data and collaboration with the care team. ([id number]) Code Visit 9xxxx: [id number] Critical care first hour
--- NOTE | 2017-12-30 05:55 | RAD_ITS ---
STUDY: X-RAY CHEST REASON FOR EXAM: Male, 82 years old. Shortness of breath. TECHNIQUE: Single AP portable view of the chest. COMPARISON: December 30 2017 time stamped 12:42 AM FINDINGS: Cardiac monitoring leads are present. There is hyperinflation of the lungs consistent with chronic obstructive lung disease (COPD). There is right infrahilar airspace consolidation and/or atelectasis. There is no demonstrated pleural abnormality. Normal size heart. Normal mediastinum and kris. There is prominence of the pulmonary hilar arteries without peripheral pulmonary vascular congestion. There is atherosclerotic calcification of the aortic arch with tortuosity. There is demineralization of the osseous structures. Normal visualized ribs, clavicles, and shoulders. There is no demonstrated abnormality of the visualized soft tissue structures of the upper abdomen. RAD/Chest 1 View (Portable) IMPRESSION: 1. COPD. 2. Right basilar airspace consolidation and/or atelectasis.. Electronically Signed: Grace Gutierrez MD at 6:08 EDT , Service support ,
[2017-12-30 05:56] LABS: M R Staph aureus DNA By PCR Negative (Negative); Probe Check PASS; Specimen Processing Control PASS
[2017-12-30 06:26] LABS: Lactic Acid 2.2 mmol/L (0.4-2.0)
[2017-12-30] MEDS: Piperacil/Tazobactam 3.375 GM/50 ML ML IV ×3 (06:34→21:34)
[2017-12-30] MEDS: Dorzolamide 2% 10ml Bottle 1 DRP EACH EYE ×2 (06:38→21:38)
[2017-12-30 06:50] LABS: Bedside Glucose 234 mg/dL (70-110)
[2017-12-30] MEDS: Heparin Injection (Vial) 5,000 UNIT/ML VIAL 5000 UNIT SC ×2 (10:23→21:35)
--- NOTE | 2017-12-30 10:25 | NURSING ---
Sat edge of bed to use urinal with bipap maintained. Immediately became anxious and short of breath. Tachypnic and tachycardic. Returned to bed and encouraged pt to remain on strict bedrest for now. Ativan given for anxiety per pt request. Unable to give PO meds at this time. Will allow some time to recover on bipap and attempt PO meds later.
--- NOTE | 2017-12-30 11:00 | CASEMGMT ---
SAROJ CASTANON Assessment Intro role of CM to daughter via phone. Pt is unable to participate in CM assessment at this time. Daughter is considering speaking with her father re: Hospice transition. Pt is active with Palliative Care now. Daughter would like to speak with her Palliative Care Nurse. SAROJ CASTANON Called to nurse Herring, Hospice commercial litigation paralegal nurse who will contact Palliative [facility] to call daughter. SAROJ CASTANON explained to daughter that if pt decides to transition to Hospice care, referral can be made @ [facility] and they will see pt here. PCP: Dr. Link Pharmacy: [facility] Prescription Coverage: yes Living Arrangements: Lives with daughterFifi in two story home. 1st floor set up. DME: Home oxygen through [employer], 2L w/portability. Walker, Cane, Wheelchair, Cpap, Nebulizer. Active w/Palliative Care through [facility] RN. DC PLAN: undetermined. PT/OT evaluations pending. Will need to be determined if pt can return home.
[2017-12-30] MEDS: CHLORHEXIDINE GLUC 2% CLOTH 1 EACH TOWELETTE TOPICAL (11:25)
[2017-12-30] MEDS: Finasteride 5 MG Tablet PO (11:25)
[2017-12-30] MEDS: busPIRone 5 MG Tablet PO ×2 (11:26→21:35)
[2017-12-30] MEDS: Clopidogrel Bisulfate 75 MG Tablet PO (11:27)
[2017-12-30] MEDS: Metoprolol Tartrate 25 MG Tablet PO ×2 (11:27→21:35)
[2017-12-30] MEDS: Venlafaxine XR 75 MG Capsule 225 MG PO (11:28)
[2017-12-30] MEDS: Aspirin E.C. 81 MG Tablet PO (11:29)
[2017-12-30] MEDS: Tamsulosin HCl 0.4 MG Capsule PO (11:29)
[2017-12-30] MEDS: Pantoprazole Sodium 20 MG Tablet PO (11:30)
[2017-12-30] MEDS: Montelukast 10 MG Tablet PO (11:31)
[2017-12-30] MEDS: Insulin Lispro 100 UNIT/ML INSULN.PEN SC ×3 (11:48→21:36)
[2017-12-30 11:56] LABS: Bedside Glucose 211 mg/dL (70-110)
--- NOTE | 2017-12-30 13:47 | PCM.HOSP.N ---
Hospitalist Note Patient is a 32-year-old with known history of chronic kidney disease stage III, chronic COPD with chronic hypoxic respiratory failure hypertension GLENNA anxiety depression BPH tobacco abuse in the past, who had progressively worsening dyspnea and was diagnosed with sepsis, recent NSTEMI, diabetes type 2, and respiratory distress to the point where palliative care in the past has been discussed with the patient. I have discussed the case with pulmonary, patient will likely need trilogy as an outpatient. Will keep patient on clear liquid diet for now, as may need to go back on BiPAP, but has improved will advance diet. Patient is been off BiPAP last several hours we will transfer to floors. We will continue antibiotics for another 24 hours, however will likely discontinue tomorrow morning as per recommendations of pulmonary. Viral panel is currently negative. Appreciate pulmonary's help on this case and will continue to monitor. Patient's lactic acidosis has improved greatly. We will continue fluids and initiated by admitting physician and monitor. We will downgrade patient to the PCU for further monitoring and will consult physical therapy. Chart is dictated with finance analyst software. Errors may occur in dictation that may change providers meaning. This note was generated with [employer] dictation software. It may contain incorrect words, spelling, and punctuation that were not noted in checking the note before signing.
--- NOTE | 2017-12-30 13:51 | CCHN_ITS ---
Hospitalist Note Patient is a 32-year-old with known history of chronic kidney disease stage III, chronic COPD with chronic hypoxic respiratory failure hypertension GLENNA anxiety depression BPH tobacco abuse in the past, who had progressively worsening dyspnea and was diagnosed with sepsis, recent NSTEMI, diabetes type 2, and respiratory distress to the point where palliative care in the past has been discussed with the patient. I have discussed the case with pulmonary, patient will likely need trilogy as an outpatient. Will keep patient on clear liquid diet for now, as may need to go back on BiPAP, but has improved will advance diet. Patient is been off BiPAP last several hours we will transfer to floors. We will continue antibiotics for another 24 hours, however will likely discontinue tomorrow morning as per recommendations of pulmonary. Viral panel is currently negative. Appreciate pulmonary's help on this case and will continue to monitor. Patient's lactic acidosis has improved greatly. We will continue fluids and initiated by admitting physician and monitor. We will downgrade patient to the PCU for further monitoring and will consult physical therapy. Chart is dictated with veneer taping machine operator software. Errors may occur in dictation that may change providers meaning. This note was generated with [employer] dictation software. It may contain incorrect words, spelling, and punctuation that were not noted in checking the note before signing.
[2017-12-30 16:41] LABS: Bedside Glucose 155 mg/dL (70-110)
[2017-12-30] MEDS: guaiFENesin 1,200 MG Tablet 1200 MG PO (21:35)
[2017-12-30] MEDS: Mirtazapine 15 MG Tablet 7.5 MG PO (21:35)
[2017-12-30] MEDS: traZODone 50 MG Tablet PO (21:35)
[2017-12-30] MEDS: Atorvastatin Calcium 40 MG Tablet PO (21:35)
[2017-12-30] MEDS: Latanoprost 0.005% 1 Bottle 1 DRP OPHTHALMIC (21:37)
[2017-12-30 22:11] LABS: Bedside Glucose 173 mg/dL (70-110)
[2017-12-30] MEDS: Mirtazapine 15 MG Tablet PO (22:23)
[2017-12-30] MEDS: BENZOCAINE/MENTHOL 1 LOZENGE 2 LOZENGE MUCOUS MEM (22:23)
[2017-12-31] VITALS (26 sets, daily range): BP systolic 112–147; BP diastolic 56–88; PULSE 66–101; RESP 12–28; TEMP 36.2–36.7; O2SAT 97–100
[2017-12-31] MEDS: 0.9% Normal Saline 1,000 ML 150 ML IV ×2 (01:38→08:11)
[2017-12-31] MEDS: Ipratropium/Albuterol Sulfate 3 ML AMPUL.NEB INHALATION ×6 (02:08→23:22)
[2017-12-31] MEDS: LORazepam 2 MG/ML Syringe 0.5 MG IV (03:08)
[2017-12-31] MEDS: 0.9% NaCl Peripheral Flush Adult/Peds IV ×2 (03:08→14:09)
[2017-12-31 03:46] LABS: Absolute Lymphocyte Count 0.42 X10^3/ul (0.83-4.51); Absolute Neutrophil Count 12.7 X10^3/uL (2.0-7.7); Hematocrit 29.8 % (40-54); Hemoglobin 9.3 g/dl (13.0-16.5); Lymphocyte # 0.42 X10^3/ul (4.0); Lymphocyte % 3.1 % (19-41); Mean Corp Hgb Conc 31.2 g/gl (32-36); Mean Corpuscular Volume 86.6 fL (80-94); Mean Platelet Vol. 9.5 fl (6.2-12.0); Monocyte# 0.53 X10^3/uL; Monocyte% 3.9 % (0-10); Neutrophil # 12.73 X10^3/uL (2.7-7.7); Neutrophil % 92.7 % (47-70); Platelet Count 191 K/mm3 (150-450); RBC Distribution Width CV 14.9 % (11.6-14.6); RBC Distribution Width SD 45.8 fl (35.1-43.9); Red Blood Count 3.44 M/mm3 (4.6-6.2); White Blood Count 13.7 K/mm3 (4.4-11.0)
[2017-12-31 03:47] LABS: Differential Indicated SCAN CRITERIA MET; POSITIVE COUNT NO; POSITIVE MORPHOLOGY NO
[2017-12-31 03:48] LABS: POSITIVE DIFFERENTIAL YES
[2017-12-31 04:22] LABS: Differential Comment SCANNED
[2017-12-31 04:42] LABS: ALB/GLOB Ratio 0.9 RATIO (0.9-2.4); AST(SGOT) 20 U/L (15-37); Alanine Aminotransfer ALT/SGPT 24 U/L (16-61); Albumin, Serum 2.7 g/dL (3.2-5.0); Alkaline Phosphatase 44 U/L (45-117); Anion Gap 9 (5-15); BUN 20 mg/dL (7-18); BUN/Creat Ratio 16.7 RATIO (10-20); Calcium,Total 8.2 mg/dL (8.5-10.1); Chloride 113 mmol/L (98-107); EST Glomerular Filtration Rate 61 mL/min (>60); Est Glom Filt Rate - Afr Amer 74 mL/min (>60); Estimated Creatinine Clearance 36.02 ml/min; Globulin 3.1 g/dL (2.2-4.2); Glucose 82 mg/dL (74-106); Magnesium 2.1 mg/dL (1.6-2.6); Phosphorus 3.2 mg/dL (2.5-4.9); Protein, Total 5.8 g/dL (6.4-8.2); Sodium Level 146 mmol/L (136-145)
[2017-12-31] MEDS: busPIRone 5 MG Tablet PO ×3 (05:36→21:55)
[2017-12-31] MEDS: Piperacil/Tazobactam 3.375 GM/50 ML ML IV (05:44)
--- NOTE | 2017-12-31 05:55 | RAD_ITS ---
STUDY: X-RAY CHEST REASON FOR EXAM: Male, 82 years old. Shortness of breath, COPD. TECHNIQUE: AP portable chest. COMPARISON: December 30, 2017. FINDINGS: Lungs are hyperinflated. No focal infiltrates or effusions. Normal size heart. Normal mediastinum and kris. Normal visualized pulmonary arteries. Normal visualized aortic arch and descending thoracic aorta. Normal visualized thoracic spine. Normal visualized ribs, clavicles, and shoulders. There is no demonstrated abnormality of the visualized soft tissue structures of the upper abdomen. RAD/Chest 1 View (Portable) IMPRESSION: No acute cardiopulmonary disease. COPD. Electronically Signed: Yusuf Ying MD at 7:27 EDT , Service support ,
--- NOTE | 2017-12-31 05:56 | PN_ITS ---
Subjective: The patient was seen and examined at the bedside this morning. Events from the last 24 hours have been reviewed. The patient is currently afebrile, hemodynamically stable and maintaining appropriate oxygen saturations on 1 L/min via nasal cannula. The patient was noted to have a great deal of anxiety yesterday. He is currently PCU status awaiting transfer out of the intensive care unit. Although he does have a cough, it has been nonproductive of sputum. The patient is currently overall net +3 L for the admission. Objective: The patient's most recent lab work, culture data and imaging studies have all been personally reviewed. Blood cultures are currently pending. Respiratory viral panel was negative. General: Alert, Cooperative, No apparent distress HEENT: Atraumatic, PERRLA, Normocephalic Oral: No Gingival or Mucosal Lesions/ Ulcerations Neck: Supple, No Nodes, Trachea Midline Lungs: - - Severely diminished air movement bilaterally without appreciable wheezes, rales or rhonchi. Cardiovascular: Regular rate, Regular Rhythm, Normal S1, Normal S2, No murmurs Abdomen: Bowel Sounds Present, Soft, Non Tender Extremities: No clubbing, No cyanosis, No edema Skin: No breakdown Musculoskeletal: No Tenderness to Palpation of Joints or Extremities Lymphatic: No Cervical, Supraclavicular, or Inguinal Adenopathy Neurological: Cranial nerves II-XII grossly intact, Neuro grossly intact Psych/Mental Status: Anxious Vital Signs Temp Pulse Resp BP Pulse Ox 98.0 F 75 23 H 113/88 H 97 12/31/17 03:00 12/31/17 05:00 12/31/17 05:00 12/31/17 05:00 12/31/17 05:00 Oxygen Flow Rate (L/min) 1 Oxygen Delivery Method Nasal Cannula Weight: 138 lb 10.732 oz Body Mass Index (BMI) 25.1 Intake and Output for Last 24 Hours 12/29/17 12/30/17 12/31/17 23:59 23:59 23:59 Intake Total 3791.5 / 3791.5 1300 / 1300 Output Total 1725 / 1725 275 / 275 Balance 2066.5 / 2066.5 1025 / 1025 Labs (Last 48 Hours) 12/30/17 12/30/17 12/30/17 00:34 00:34 00:34 WBC 22.0 H RBC 4.75 Hgb 12.4 L Hct 41.6 MCV 87.6 MCH 26.1 L MCHC 29.8 L RDW 15.2 H RDW Differential 48.7 H Plt Count 290 MPV 9.1 Immature Gran % (Auto) 0.500 Neut % (Auto) 72.0 H Lymph % (Auto) 15.3 L [place] % (Auto) 5.8 Eos % (Auto) 6.2 H Baso % (Auto) 0.2 Absolute Neuts (auto) 15.9 H Absolute Lymphs (auto) 3.37 Total Counted Not Reportable Differential Comment Specimen Type Sample Site pH Bicarbonate Actual POC Total CO2 Base Excess O2 Saturation O2 % ABG pCO2 ABG pO2 Blayne Test Respiration Rate O2 Delivery Device EPAP IPAP Blood Gas Notified Whom Blood Gas Notified Time Sodium 139 Potassium 4.3 Chloride 103 Carbon Dioxide 28.0 Anion Gap 8 BUN 20 H Creatinine 1.44 H Estim Creat Clear Calc 30.02 Est GFR (MDRD) Af Amer 60 Est GFR (MDRD) Non-Af 50 L BUN/Creatinine Ratio 13.9 Glucose 227 H Lactic Acid 6.0 H* Calcium 9.0 Phosphorus Magnesium Total Bilirubin AST ALT Alkaline Phosphatase Troponin I < 0.015 B-Natriuretic Peptide Total Protein Albumin Globulin Albumin/Globulin Ratio MRSA (PCR) POC Glucose 12/30/17 12/30/17 12/30/17 00:34 00:34 04:06 WBC RBC Hgb Hct MCV MCH MCHC RDW RDW Differential Plt Count MPV Immature Gran % (Auto) Neut % (Auto) Lymph % (Auto) [place] % (Auto) Eos % (Auto) Baso % (Auto) Absolute Neuts (auto) Absolute Lymphs (auto) Total Counted Differential Comment Specimen Type ART Sample Site R Radial pH 7.38 Bicarbonate Actual 22.3 POC Total CO2 23 Base Excess -3 L O2 Saturation 95 O2 % 30 ABG pCO2 37.8 ABG pO2 79 Blayne Test POS Respiration Rate 12 O2 Delivery Device Bi / C PAP EPAP 12 IPAP 18 Blood Gas Notified Whom [facility] Blood Gas Notified Time 400 Sodium Potassium Chloride Carbon Dioxide Anion Gap BUN Creatinine Estim Creat Clear Calc Est GFR (MDRD) Af Amer Est GFR (MDRD) Non-Af BUN/Creatinine Ratio Glucose Lactic Acid Calcium Phosphorus Magnesium 1.9 Total Bilirubin AST ALT Alkaline Phosphatase Troponin I B-Natriuretic Peptide 106.2 H Total Protein Albumin Globulin Albumin/Globulin Ratio MRSA (PCR) POC Glucose 12/30/17 12/30/17 12/30/17 04:10 04:15 04:15 WBC 16.7 H RBC 4.31 L Hgb 11.6 L Hct 37.2 L MCV 86.3 MCH 26.9 L MCHC 31.2 L RDW 15.0 H RDW Differential 46.6 H Plt Count 218 MPV 9.0 Immature Gran % (Auto) 0.500 Neut % (Auto) 96.1 H Lymph % (Auto) 1.8 L [place] % (Auto) 1.0 Eos % (Auto) 0.5 Baso % (Auto) 0.1 Absolute Neuts (auto) 16.1 H Absolute Lymphs (auto) 0.30 L Total Counted Not Reportable Differential Comment SCANNED Specimen Type Sample Site pH Bicarbonate Actual POC Total CO2 Base Excess O2 Saturation O2 % ABG pCO2 ABG pO2 Blayne Test Respiration Rate O2 Delivery Device EPAP IPAP Blood Gas Notified Whom Blood Gas Notified Time Sodium 141 Potassium 4.3 Chloride 107 Carbon Dioxide 23.0 Anion Gap 11 BUN 20 H Creatinine 1.27 Estim Creat Clear Calc 34.04 Est GFR (MDRD) Af Amer 70 Est GFR (MDRD) Non-Af 58 L BUN/Creatinine Ratio 15.7 Glucose 183 H Lactic Acid Calcium 8.5 Phosphorus Magnesium Total Bilirubin AST ALT Alkaline Phosphatase Troponin I B-Natriuretic Peptide Total Protein Albumin Globulin Albumin/Globulin Ratio MRSA (PCR) Negative POC Glucose 12/30/17 12/30/17 12/30/17 05:30 06:31 11:48 WBC RBC Hgb Hct MCV MCH MCHC RDW RDW Differential Plt Count MPV Immature Gran % (Auto) Neut % (Auto) Lymph % (Auto) [place] % (Auto) Eos % (Auto) Baso % (Auto) Absolute Neuts (auto) Absolute Lymphs (auto) Total Counted Differential Comment Specimen Type Sample Site pH Bicarbonate Actual POC Total CO2 Base Excess O2 Saturation O2 % ABG pCO2 ABG pO2 Blayne Test Respiration Rate O2 Delivery Device EPAP IPAP Blood Gas Notified Whom Blood Gas Notified Time Sodium Potassium Chloride Carbon Dioxide Anion Gap BUN Creatinine Estim Creat Clear Calc Est GFR (MDRD) Af Amer Est GFR (MDRD) Non-Af BUN/Creatinine Ratio Glucose Lactic Acid 2.2 H Calcium Phosphorus Magnesium Total Bilirubin AST ALT Alkaline Phosphatase Troponin I B-Natriuretic Peptide Total Protein Albumin Globulin Albumin/Globulin Ratio MRSA (PCR) POC Glucose 234 H 211 H 12/30/17 12/30/17 12/31/17 16:35 21:32 03:05 WBC 13.7 H RBC 3.44 L Hgb 9.3 L Hct 29.8 L MCV 86.6 MCH 27.0 MCHC 31.2 L RDW 14.9 H RDW Differential 45.8 H Plt Count 191 MPV 9.5 Immature Gran % (Auto) 0.300 Neut % (Auto) 92.7 H Lymph % (Auto) 3.1 L [place] % (Auto) 3.9 Eos % (Auto) 0.0 Baso % (Auto) 0.0 Absolute Neuts (auto) 12.7 H Absolute Lymphs (auto) 0.42 L Total Counted Not Reportable Differential Comment SCANNED Specimen Type Sample Site pH Bicarbonate Actual POC Total CO2 Base Excess O2 Saturation O2 % ABG pCO2 ABG pO2 Blayne Test Respiration Rate O2 Delivery Device EPAP IPAP Blood Gas Notified Whom Blood Gas Notified Time Sodium Potassium Chloride Carbon Dioxide Anion Gap BUN Creatinine Estim Creat Clear Calc Est GFR (MDRD) Af Amer Est GFR (MDRD) Non-Af BUN/Creatinine Ratio Glucose Lactic Acid Calcium Phosphorus Magnesium Total Bilirubin AST ALT Alkaline Phosphatase Troponin I B-Natriuretic Peptide Total Protein Albumin Globulin Albumin/Globulin Ratio MRSA (PCR) POC Glucose 155 H 173 H 12/31/17 03:05 WBC RBC Hgb Hct MCV MCH MCHC RDW RDW Differential Plt Count MPV Immature Gran % (Auto) Neut % (Auto) Lymph % (Auto) [place] % (Auto) Eos % (Auto) Baso % (Auto) Absolute Neuts (auto) Absolute Lymphs (auto) Total Counted Differential Comment Specimen Type Sample Site pH Bicarbonate Actual POC Total CO2 Base Excess O2 Saturation O2 % ABG pCO2 ABG pO2 Blayne Test Respiration Rate O2 Delivery Device EPAP IPAP Blood Gas Notified Whom Blood Gas Notified Time Sodium 146 H Potassium 4.0 Chloride 113 H Carbon Dioxide 24.0 Anion Gap 9 BUN 20 H Creatinine 1.20 Estim Creat Clear Calc 36.02 Est GFR (MDRD) Af Amer 74 Est GFR (MDRD) Non-Af 61 BUN/Creatinine Ratio 16.7 Glucose 82 Lactic Acid Calcium 8.2 L Phosphorus 3.2 Magnesium 2.1 Total Bilirubin 0.40 AST 20 ALT 24 Alkaline Phosphatase 44 L Troponin I B-Natriuretic Peptide Total Protein 5.8 L Albumin 2.7 L Globulin 3.1 Albumin/Globulin Ratio 0.9 MRSA (PCR) POC Glucose Microbiology 12/30/17 04:10 Mucosa - Nose Respiratory Panel (PCR) - Final Clinical Impression(s) from Imaging Studies Chest X-Ray 12/30/17 00:31 IMPRESSION: COPD without radiographic evidence of acute cardiopulmonary disease. Electronically Signed: Grace Gutierrez MD at 1:26 EDT , Service support , Chest X-Ray 12/30/17 05:55 IMPRESSION: 1. COPD. 2. Right basilar airspace consolidation and/or atelectasis.. Electronically Signed: Grace Gutierrez MD at 6:08 EDT , Service support , Medical Necessity - Tobacco Use Smoking Status: Former smoker Tobacco Use: Non-smoker Assessment/Plan All Active Problems (Last Updated 12/30/17 @ 13:45 by Kalie Garsia) Chest pain (Acute) Acute respiratory failure with hypoxia (Acute) COPD exacerbation (Acute) Severe sepsis (Acute) RECOMMENDATIONS: 1. Continue BiPAP as needed. 2. Antibiotics can be discontinued from my perspective. 3. Continue baseline anxiolytic medications. 4. Wean supplemental oxygen to maintain saturations 88-92%. 5. Continue scheduled bronchodilators and steroids. 6. The patient would ideally benefit from a trilogy noninvasive ventilator in his home environment along with referral to palliative care for symptom management. IMPRESSIONS: 1. Acute on chronic hypoxemic respiratory failure The patient presented to the hospital with worsening shortness of breath over several days duration. He does follow with Dr. Shaffer on an outpatient basis and has known stage IV COPD with persistent systems despite triple therapy inhaler regimen and supplemental oxygen. The patient is prescribed a 10 mg chronic daily dose. Per documentation from the pulmonary medicine office, the patient was referred to palliative care previously. However, upon my discussion with the patient this morning, he denies being active with them. Regardless, the patient has responded appropriately to the use of noninvasive positive pressure ventilation. Although the radiology report did indicate potential right basilar consolidation or atelectasis, per my review of the patient's chest imaging, it does not appear that he has an acute infectious process evident. Respiratory viral panel was negative. From my perspective, I would discontinue antibiotics and continue to monitor the patient clinically. Continue steroids as ordered. 2. Acute kidney injury Resolved. Likely prerenal in etiology, as the patient has responded to gentle IV fluid hydration. Urine output is appropriate. No indication for renal replacement therapy at this time. 3. Lactic acidemia Resolved. Low clinical index of suspicion for underlying pulmonary infectious process. Suspect that it was the patient's increased work of breathing which led to the lactic acidemia. 4. Anxiety/depression The patient has a great deal of anxiety and depression at baseline. He should ideally be following with palliative care. Recommend weaning from BiPAP so that his baseline anxiolytic medications can be restarted. 5. Coronary artery disease/BPH/hypertension/allergic rhinitis Complicates care, management, recovery and prognosis. Likely okay to continue home medications as ordered. This note was generated with [employer] dictation software. It may contain incorrect words, spelling, and punctuation that were not noted in checking the note before signing. Code Visit Inpatient E&M: 24689 Subs Hosp L3
[2017-12-31 06:55] LABS: Bedside Glucose 75 mg/dL (70-110)
[2017-12-31] MEDS: Finasteride 5 MG Tablet PO (08:12)
[2017-12-31] MEDS: Aspirin E.C. 81 MG Tablet PO (08:12)
[2017-12-31] MEDS: Pantoprazole Sodium 20 MG Tablet PO (08:12)
[2017-12-31] MEDS: Clopidogrel Bisulfate 75 MG Tablet PO (08:12)
[2017-12-31] MEDS: Metoprolol Tartrate 25 MG Tablet PO ×2 (08:12→21:56)
[2017-12-31] MEDS: Tamsulosin HCl 0.4 MG Capsule PO (08:13)
[2017-12-31] MEDS: Glucerna Shake 120 ML LIQUID PO ×4 (08:19→21:55)
[2017-12-31] MEDS: Dorzolamide 2% 10ml Bottle 1 DRP EACH EYE ×2 (10:42→21:57)
[2017-12-31] MEDS: Montelukast 10 MG Tablet PO (10:44)
[2017-12-31] MEDS: guaiFENesin 1,200 MG Tablet 1200 MG PO ×2 (10:44→21:56)
[2017-12-31] MEDS: Heparin Injection (Vial) 5,000 UNIT/ML VIAL 5000 UNIT SC ×2 (10:44→21:55)
[2017-12-31] MEDS: Venlafaxine XR 75 MG Capsule 225 MG PO (11:17)
[2017-12-31] MEDS: Insulin Lispro 100 UNIT/ML INSULN.PEN SC ×3 (12:18→22:14)
[2017-12-31 12:25] LABS: Bedside Glucose 161 mg/dL (70-110)
--- NOTE | 2017-12-31 12:46 | PCM.PN.HOSP ---
Patient Problems: Active and Suspected Problems (Last Updated 12/30/17 @ 13:45 by Kalie Garsia) Acute respiratory failure with hypoxia (Acute) COPD exacerbation (Acute) Severe sepsis (Acute) Subjective: Patient is a 82-year-old with known history of chronic kidney disease stage III, chronic COPD with chronic hypoxic respiratory failure hypertension GLENNA anxiety depression BPH tobacco abuse in the past, who had progressively worsening dyspnea and was diagnosed with sepsis, recent NSTEMI, diabetes type 2, and respiratory distress to the point where palliative care in the past has been discussed with the patient. Discussed the case with pulmonary, patient will likely need trilogy as an outpatient. Patient is eating a regular diet, have discussed medications and palliation, patient states that evaluation was already in the works and will discuss with, as an outpatient. Feels like breathing is improved but not quite yet to baseline. We will discontinue IV antibiotics and have downgraded patient care. Patient currently denies any nausea vomiting diarrhea constipation but is very anxious. Vitals/I&O's: Vital Signs Temp Pulse Resp BP Pulse Ox 97.4 F L 85 18 126/68 H 97 12/31/17 10:00 12/31/17 11:31 12/31/17 10:00 12/31/17 10:00 12/31/17 10:00 Oxygen Flow Rate (L/min) 2 Oxygen Delivery Method Room Air Weight: 62.9 kg Body Mass Index (BMI) 25.1 Intake and Output for Last 24 Hours 12/29/17 12/30/17 12/31/17 23:59 23:59 23:59 Intake Total 3791.5 / 3791.5 2921 / 2921 Output Total 1725 / 1725 675 / 675 Balance 2066.5 / 2066.5 2246 / 2246 General: Alert, Oriented x3, Cooperative HEENT: Atraumatic, PERRLA, EOMI, Normocephalic Oral: Moist Mucosa Neck: Supple, No JVD, Trachea Midline Lungs: No rhonchi, No wheeze, No rales, Diminished - Menaced breath sounds prolonged expiratory phase Cardiovascular: Regular rate, No murmurs Abdomen: Bowel Sounds Present, Soft, Non Tender Extremities: No clubbing, No cyanosis, No edema, Capillary Refill Less than 3 Seconds Skin: No rashes, No breakdown Musculoskeletal: No Tenderness to Palpation of Joints or Extremities Lymphatic: No Cervical, Supraclavicular, or Inguinal Adenopathy Neurological: Cranial nerves II-XII grossly intact, Neuro grossly intact Psych/Mental Status: Appropriate, Anxious, Alert and oriented to time, place, person, mood and affect Microbiology Past 72 Hours 12/30/17 04:10 Mucosa - Nose Respiratory Panel (PCR) - Final Laboratory Results 12/30/17 16:35: POC Glucose 155 H 12/30/17 21:32: POC Glucose 173 H 12/31/17 03:05: WBC 13.7 H, RBC 3.44 L, Hgb 9.3 L, Hct 29.8 L, MCV 86.6, MCH 27.0, MCHC 31.2 L, RDW 14.9 H, RDW Differential 45.8 H, Plt Count 191, MPV 9.5, Immature Gran % (Auto) 0.300, Neut % (Auto) 92.7 H, Lymph % (Auto) 3.1 L, [place] % (Auto) 3.9, Eos % (Auto) 0.0, Baso % (Auto) 0.0, Absolute Neuts (auto) 12.7 H, Absolute Lymphs (auto) 0.42 L, Total Counted Not Reportable, Differential Comment SCANNED 12/31/17 03:05: Sodium 146 H, Potassium 4.0, Chloride 113 H, Carbon Dioxide 24.0, Anion Gap 9, BUN 20 H, Creatinine 1.20, Estim Creat Clear Calc 36.02, Est GFR (MDRD) Af Amer 74, Est GFR (MDRD) Non-Af 61, BUN/Creatinine Ratio 16.7, Glucose 82, Calcium 8.2 L, Phosphorus 3.2, Magnesium 2.1, Total Bilirubin 0.40, AST 20, ALT 24, Alkaline Phosphatase 44 L, Total Protein 5.8 L, Albumin 2.7 L, Globulin 3.1, Albumin/Globulin Ratio 0.9 12/31/17 06:52: POC Glucose 75 12/31/17 12:16: POC Glucose 161 H Current Medications Acetaminophen (Tylenol) 650 mg PO Q6H PRN PRN PRN Reason: Mild Pain (scale 0-3)/T>100.7 Al Hydroxide/Mg Hydroxide (Mylanta Ii) 30 ml PO Q6H PRN PRN PRN Reason: Gastric burning Albuterol Sulfate (Ventolin Aerosols) 2.5 mg INHALATION Q2H PRN PRN PRN Reason: SHORTNESS OF BREATH Albuterol/Ipratropium (Duoneb) 3 ml INHALATION Q4H.RT [facility] Last Admin: 12/31/17 11:04 Dose: 3 ml Alprazolam (Xanax) 0.125 mg PO TID [facility] Aspirin (Ecotrin) 81 mg PO DAILY [facility] Last Admin: 12/31/17 08:12 Dose: 81 mg Atorvastatin Calcium (Lipitor) 40 mg PO QHS [facility] Last Admin: 12/30/17 21:35 Dose: 40 mg Buspirone HCl (Buspar) 5 mg PO TID [facility] Last Admin: 12/31/17 05:36 Dose: 5 mg Clopidogrel Bisulfate (Plavix) 75 mg PO DAILY [facility] Last Admin: 12/31/17 08:12 Dose: 75 mg Dorzolamide HCl (Trusopt) 1 drop EACH EYE BID [facility] Last Admin: 12/31/17 10:42 Dose: 1 drop Finasteride (Proscar) 5 mg PO DAILY [facility] Last Admin: 12/31/17 08:12 Dose: 5 mg Guaifenesin (Mucinex) 1,200 mg PO BID [facility] Last Admin: 12/31/17 10:44 Dose: 1,200 mg Heparin Sodium (Porcine) (Heparin Na) 5,000 unit SC Q12 [facility] Last Admin: 12/31/17 10:44 Dose: 5,000 unit Sodium Chloride () 250 mls @ 15 mls/hr IV .[id number] PRN PRN Reason: SALINE FLUSH Insulin Glargine (Lantus (Bkc)) 8 units SC QHS [facility] Last Admin: 12/30/17 21:36 Dose: 8 units Insulin Human Lispro (Humalog Kwikpen (Bkc)) 0 unit SC ACHS [facility]; Protocol Last Admin: 12/31/17 12:18 Dose: 1 u Latanoprost (Xalatan Opthalmic) 1 drop OPHTHALMIC QHS [facility] Last Admin: 12/30/17 21:37 Dose: 1 drop Lorazepam (Ativan) 0.5 mg IV Q4H PRN PRN PRN Reason: ANXIETY Last Admin: 12/31/17 03:08 Dose: 0.5 mg Magnesium Hydroxide (Milk Of Magnesia) 30 ml PO DAILY PRN PRN PRN Reason: Constipation Methylprednisolone (Solu-Medrol) 40 mg IV Q8 [facility] Last Admin: 12/31/17 05:36 Dose: 40 mg Metoprolol Tartrate (Lopressor (Beta Nick)) 25 mg PO BID [facility] Last Admin: 12/31/17 08:12 Dose: 25 mg Mirtazapine (Remeron) 15 mg PO QHS [facility] Last Admin: 12/30/17 22:23 Dose: 7.5 mg Montelukast Sodium (Singulair) 10 mg PO DAILY [facility] Last Admin: 12/31/17 10:44 Dose: 10 mg Nutritional Formula (Lactose Free) (Glucerna Shake) 120 ml PO 4X/DAY [facility] Last Admin: 12/31/17 12:17 Dose: 120 ml Ondansetron HCl (Zofran) 4 mg IV Q8H PRN PRN PRN Reason: NAUSEA Pantoprazole Sodium (Protonix) 20 mg PO DAILY [facility] Last Admin: 12/31/17 08:12 Dose: 20 mg Promethazine HCl (Phenergan) 12.5 mg IV Q6H PRN PRN PRN Reason: NAUSEA/VOMITING Sodium Chloride () 5 - 30 ml IV UD PRN PRN Reason: SALINE FLUSH Last Admin: 12/31/17 03:08 Dose: 20 ml Tamsulosin HCl (Flomax) 0.4 mg PO DAILY [facility] Last Admin: 12/31/17 08:13 Dose: 0.4 mg Throat Lozenges (Cepacol Sore Throat Lozenge) 2 lozenge MUCOUS MEM Q2H PRN PRN PRN Reason: SORE THROAT Last Admin: 12/30/17 22:23 Dose: 1 lozenge Trazodone HCl (Desyrel) 50 mg PO QHS [facility] Last Admin: 12/30/17 21:35 Dose: 50 mg Venlafaxine HCl (Effexor Xr) 225 mg PO DAILY [facility] Last Admin: 12/31/17 11:17 Dose: 225 mg Medical Necessity - Tobacco Use Smoking Status: Former smoker Tobacco Use: Non-smoker Assessment/Plan All Active Problems (Last Updated 12/30/17 @ 13:45 by Kalie Garsia) Chest pain (Acute) Acute respiratory failure with hypoxia (Acute) COPD exacerbation (Acute) Severe sepsis (Acute) Acute on Chronic Hypoxic Respiratory Failure secondary to Acute on chronic COPD exacerbation: Patient had a severe lactic acidosis, tachypnea, and was thought to have sepsis. Lactic acidosis is probably due to respiratory distress, cultures and respiratory viral panel has been negative. We will discontinue antibiotics as suggested by critical care/pulmonary. Will discontinue IV fluids as patient blood pressure seems to be stable and is now hypernatremic. Patient will be transferred to the floors, outpatient trilogy will need to be set up, patient has a lot of symptoms secondary to anxiety we will start a low-dose of Xanax for this patient and monitor try to create a medication for home use, other than IV Ativan. Appreciate pulmonary's help on the case. We will need to discuss possible palliation and trilogy with case management in the morning. We will continue IV steroids for another 24 hours may wish to start transitioning to p.o. in the next 24 48 hrs. 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 Continue sliding scale insulin Chronic Kidney Disease Stage III: Admission BUN/Cr 20/1.44, baseline renal function 1.3-1.4, repeat BMP in AM. Hypertension: Continue home regimen including metoprolol, PRN hydralazine. Hyperlipidemia: Continue home statin regimen. BPH: Maintain on home regimen proscar and flomax. Anxiety and Depression: Maintain on home regimen BuSpar, Effexor, trazodone. GERD: Continue Protonix GLENNA: Will maintain BiPAP at night patient will need trilogy as an outpatient.. DVT Prophylaxis: SCDs, heparin. CODE STATUS DNR CCA Disposition patient will be downgraded to the floors overnight, will continue current medical therapy, will need to arrange home health possible palliation as an outpatient and trilogy. Patient is quickly becoming more independent, likely will be in the hospital 2448 hrs. depending on arrangements and change in angiolytics to oral medications. Appreciate pulmonary's help on this case. Chart is dictated with insurance sales representative software. Errors may occur in dictation that may change providers meaning. This note was generated with [employer] dictation software. It may contain incorrect words, spelling, and punctuation that were not noted in checking the note before signing.
--- NOTE | 2017-12-31 13:00 | PN_ITS ---
Patient Problems: Active and Suspected Problems (Last Updated 12/30/17 @ 13:45 by Kalie Garsia) Acute respiratory failure with hypoxia (Acute) COPD exacerbation (Acute) Severe sepsis (Acute) Subjective: Patient is a 82-year-old with known history of chronic kidney disease stage III, chronic COPD with chronic hypoxic respiratory failure hypertension GLENNA anxiety depression BPH tobacco abuse in the past, who had progressively worsening dyspnea and was diagnosed with sepsis, recent NSTEMI, diabetes type 2, and respiratory distress to the point where palliative care in the past has been discussed with the patient. Discussed the case with pulmonary, patient will likely need trilogy as an outpatient. Patient is eating a regular diet, have discussed medications and palliation, patient states that evaluation was already in the works and will discuss with, as an outpatient. Feels like breathing is improved but not quite yet to baseline. We will discontinue IV antibiotics and have downgraded patient care. Patient currently denies any nausea vomiting diarrhea constipation but is very anxious. Vitals/I&O's: Vital Signs Temp Pulse Resp BP Pulse Ox 97.4 F L 85 18 126/68 H 97 12/31/17 10:00 12/31/17 11:31 12/31/17 10:00 12/31/17 10:00 12/31/17 10:00 Oxygen Flow Rate (L/min) 2 Oxygen Delivery Method Room Air Weight: 62.9 kg Body Mass Index (BMI) 25.1 Intake and Output for Last 24 Hours 12/29/17 12/30/17 12/31/17 23:59 23:59 23:59 Intake Total 3791.5 / 3791.5 2921 / 2921 Output Total 1725 / 1725 675 / 675 Balance 2066.5 / 2066.5 2246 / 2246 General: Alert, Oriented x3, Cooperative HEENT: Atraumatic, PERRLA, EOMI, Normocephalic Oral: Moist Mucosa Neck: Supple, No JVD, Trachea Midline Lungs: No rhonchi, No wheeze, No rales, Diminished - Menaced breath sounds prolonged expiratory phase Cardiovascular: Regular rate, No murmurs Abdomen: Bowel Sounds Present, Soft, Non Tender Extremities: No clubbing, No cyanosis, No edema, Capillary Refill Less than 3 Seconds Skin: No rashes, No breakdown Musculoskeletal: No Tenderness to Palpation of Joints or Extremities Lymphatic: No Cervical, Supraclavicular, or Inguinal Adenopathy Neurological: Cranial nerves II-XII grossly intact, Neuro grossly intact Psych/Mental Status: Appropriate, Anxious, Alert and oriented to time, place, person, mood and affect Microbiology Past 72 Hours 12/30/17 04:10 Mucosa - Nose Respiratory Panel (PCR) - Final Laboratory Results 12/30/17 16:35: POC Glucose 155 H 12/30/17 21:32: POC Glucose 173 H 12/31/17 03:05: WBC 13.7 H, RBC 3.44 L, Hgb 9.3 L, Hct 29.8 L, MCV 86.6, MCH 27.0, MCHC 31.2 L, RDW 14.9 H, RDW Differential 45.8 H, Plt Count 191, MPV 9.5, Immature Gran % (Auto) 0.300, Neut % (Auto) 92.7 H, Lymph % (Auto) 3.1 L, [place] % (Auto) 3.9, Eos % (Auto) 0.0, Baso % (Auto) 0.0, Absolute Neuts (auto) 12.7 H, Absolute Lymphs (auto) 0.42 L, Total Counted Not Reportable, Differential Comment SCANNED 12/31/17 03:05: Sodium 146 H, Potassium 4.0, Chloride 113 H, Carbon Dioxide 24.0, Anion Gap 9, BUN 20 H, Creatinine 1.20, Estim Creat Clear Calc 36.02, Est GFR (MDRD) Af Amer 74, Est GFR (MDRD) Non-Af 61, BUN/Creatinine Ratio 16.7, Glucose 82, Calcium 8.2 L, Phosphorus 3.2, Magnesium 2.1, Total Bilirubin 0.40, AST 20, ALT 24, Alkaline Phosphatase 44 L, Total Protein 5.8 L, Albumin 2.7 L, Globulin 3.1, Albumin/Globulin Ratio 0.9 12/31/17 06:52: POC Glucose 75 12/31/17 12:16: POC Glucose 161 H Current Medications Acetaminophen (Tylenol) 650 mg PO Q6H PRN PRN PRN Reason: Mild Pain (scale 0-3)/T>100.7 Al Hydroxide/Mg Hydroxide (Mylanta Ii) 30 ml PO Q6H PRN PRN PRN Reason: Gastric burning Albuterol Sulfate (Ventolin Aerosols) 2.5 mg INHALATION Q2H PRN PRN PRN Reason: SHORTNESS OF BREATH Albuterol/Ipratropium (Duoneb) 3 ml INHALATION Q4H.RT [facility] Last Admin: 12/31/17 11:04 Dose: 3 ml Alprazolam (Xanax) 0.125 mg PO TID [facility] Aspirin (Ecotrin) 81 mg PO DAILY [facility] Last Admin: 12/31/17 08:12 Dose: 81 mg Atorvastatin Calcium (Lipitor) 40 mg PO QHS [facility] Last Admin: 12/30/17 21:35 Dose: 40 mg Buspirone HCl (Buspar) 5 mg PO TID [facility] Last Admin: 12/31/17 05:36 Dose: 5 mg Clopidogrel Bisulfate (Plavix) 75 mg PO DAILY [facility] Last Admin: 12/31/17 08:12 Dose: 75 mg Dorzolamide HCl (Trusopt) 1 drop EACH EYE BID [facility] Last Admin: 12/31/17 10:42 Dose: 1 drop Finasteride (Proscar) 5 mg PO DAILY [facility] Last Admin: 12/31/17 08:12 Dose: 5 mg Guaifenesin (Mucinex) 1,200 mg PO BID [facility] Last Admin: 12/31/17 10:44 Dose: 1,200 mg Heparin Sodium (Porcine) (Heparin Na) 5,000 unit SC Q12 [facility] Last Admin: 12/31/17 10:44 Dose: 5,000 unit Sodium Chloride () 250 mls @ 15 mls/hr IV .[id number] PRN PRN Reason: SALINE FLUSH Insulin Glargine (Lantus (Bkc)) 8 units SC QHS [facility] Last Admin: 12/30/17 21:36 Dose: 8 units Insulin Human Lispro (Humalog Kwikpen (Bkc)) 0 unit SC ACHS [facility]; Protocol Last Admin: 12/31/17 12:18 Dose: 1 u Latanoprost (Xalatan Opthalmic) 1 drop OPHTHALMIC QHS [facility] Last Admin: 12/30/17 21:37 Dose: 1 drop Lorazepam (Ativan) 0.5 mg IV Q4H PRN PRN PRN Reason: ANXIETY Last Admin: 12/31/17 03:08 Dose: 0.5 mg Magnesium Hydroxide (Milk Of Magnesia) 30 ml PO DAILY PRN PRN PRN Reason: Constipation Methylprednisolone (Solu-Medrol) 40 mg IV Q8 [facility] Last Admin: 12/31/17 05:36 Dose: 40 mg Metoprolol Tartrate (Lopressor (Beta Nick)) 25 mg PO BID [facility] Last Admin: 12/31/17 08:12 Dose: 25 mg Mirtazapine (Remeron) 15 mg PO QHS [facility] Last Admin: 12/30/17 22:23 Dose: 7.5 mg Montelukast Sodium (Singulair) 10 mg PO DAILY [facility] Last Admin: 12/31/17 10:44 Dose: 10 mg Nutritional Formula (Lactose Free) (Glucerna Shake) 120 ml PO 4X/DAY [facility] Last Admin: 12/31/17 12:17 Dose: 120 ml Ondansetron HCl (Zofran) 4 mg IV Q8H PRN PRN PRN Reason: NAUSEA Pantoprazole Sodium (Protonix) 20 mg PO DAILY [facility] Last Admin: 12/31/17 08:12 Dose: 20 mg Promethazine HCl (Phenergan) 12.5 mg IV Q6H PRN PRN PRN Reason: NAUSEA/VOMITING Sodium Chloride () 5 - 30 ml IV UD PRN PRN Reason: SALINE FLUSH Last Admin: 12/31/17 03:08 Dose: 20 ml Tamsulosin HCl (Flomax) 0.4 mg PO DAILY [facility] Last Admin: 12/31/17 08:13 Dose: 0.4 mg Throat Lozenges (Cepacol Sore Throat Lozenge) 2 lozenge MUCOUS MEM Q2H PRN PRN PRN Reason: SORE THROAT Last Admin: 12/30/17 22:23 Dose: 1 lozenge Trazodone HCl (Desyrel) 50 mg PO QHS [facility] Last Admin: 12/30/17 21:35 Dose: 50 mg Venlafaxine HCl (Effexor Xr) 225 mg PO DAILY [facility] Last Admin: 12/31/17 11:17 Dose: 225 mg Medical Necessity - Tobacco Use Smoking Status: Former smoker Tobacco Use: Non-smoker Assessment/Plan All Active Problems (Last Updated 12/30/17 @ 13:45 by Kalie Garsia) Chest pain (Acute) Acute respiratory failure with hypoxia (Acute) COPD exacerbation (Acute) Severe sepsis (Acute) Acute on Chronic Hypoxic Respiratory Failure secondary to Acute on chronic COPD exacerbation: Patient had a severe lactic acidosis, tachypnea, and was thought to have sepsis. Lactic acidosis is probably due to respiratory distress, cultures and respiratory viral panel has been negative. We will discontinue antibiotics as suggested by critical care/pulmonary. Will discontinue IV fluids as patient blood pressure seems to be stable and is now hypernatremic. Patient will be transferred to the floors, outpatient trilogy will need to be set up, patient has a lot of symptoms secondary to anxiety we will start a low-dose of Xanax for this patient and monitor try to create a medication for home use, other than IV Ativan. Appreciate pulmonary's help on the case. We will need to discuss possible palliation and trilogy with case management in the morning. We will continue IV steroids for another 24 hours may wish to start transitioning to p.o. in the next 24 48 hrs. 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 Continue sliding scale insulin Chronic Kidney Disease Stage III: Admission BUN/Cr 20/1.44, baseline renal function 1.3-1.4, repeat BMP in AM. Hypertension: Continue home regimen including metoprolol, PRN hydralazine. Hyperlipidemia: Continue home statin regimen. BPH: Maintain on home regimen proscar and flomax. Anxiety and Depression: Maintain on home regimen BuSpar, Effexor, trazodone. GERD: Continue Protonix GLENNA: Will maintain BiPAP at night patient will need trilogy as an outpatient.. DVT Prophylaxis: SCDs, heparin. CODE STATUS DNR [facility] Disposition patient will be downgraded to the floors overnight, will continue current medical therapy, will need to arrange home health possible palliation as an outpatient and trilogy. Patient is quickly becoming more independent, likely will be in the hospital 2448 hrs. depending on arrangements and change in angiolytics to oral medications. Appreciate pulmonary's help on this case. Chart is dictated with silk trimmer software. Errors may occur in dictation that may change providers meaning. This note was generated with [employer]Scale dictation software. It may contain incorrect words, spelling, and punctuation that were not noted in checking the note before signing.
[2017-12-31] MEDS: ALPRAZolam 0.25 MG Tablet 0.125 MG PO ×2 (14:06→21:58)
[2017-12-31 17:10] LABS: Bedside Glucose 202 mg/dL (70-110)
[2017-12-31] MEDS: traZODone 50 MG Tablet PO (21:55)
[2017-12-31] MEDS: Atorvastatin Calcium 40 MG Tablet PO (21:55)
[2017-12-31] MEDS: Mirtazapine 15 MG Tablet PO (21:56)
[2017-12-31] MEDS: Latanoprost 0.005% 1 Bottle 1 DRP OPHTHALMIC (21:57)
[2018-01-01] VITALS (20 sets, daily range): BP systolic 124–168; BP diastolic 70–82; PULSE 70–97; RESP 17–20; TEMP 36.3–36.8; O2SAT 97–100
[2018-01-01 00:36] LABS: Bedside Glucose 228 mg/dL (70-110)
--- NOTE | 2018-01-01 04:20 | RAD_ITS ---
STUDY: X-RAY CHEST REASON FOR EXAM: Male, 82 years old. Cough, congestion. TECHNIQUE: AP portable chest. COMPARISON: December 31, 2017. FINDINGS: The lungs are clear and expanded. There is no demonstrated pleural abnormality. Normal size heart. Normal mediastinum and kris. Normal visualized pulmonary arteries. Normal visualized aortic arch and descending thoracic aorta. Osseous structures unchanged. There is no demonstrated abnormality of the visualized soft tissue structures of the upper abdomen. RAD/Chest 1 View (Portable) IMPRESSION: No acute cardiopulmonary disease. Electronically Signed: Yusuf Ying MD at 5:36 EDT , Service support ,
[2018-01-01 04:49] LABS: Absolute Lymphocyte Count 0.34 X10^3/ul (0.83-4.51); Differential Indicated SCAN CRITERIA MET; Hematocrit 31.9 % (40-54); Hemoglobin 9.7 g/dl (13.0-16.5); Lymphocyte # 0.34 X10^3/ul (4.0); Lymphocyte % 2.6 % (19-41); Mean Corp Hgb Conc 30.4 g/gl (32-36); Mean Corpuscular Hgb 26.4 pg (27.0-32.0); Mean Corpuscular Volume 86.7 fL (80-94); Monocyte# 0.66 X10^3/uL; Monocyte% 5.1 % (0-10); Neutrophil # 11.95 X10^3/uL (2.7-7.7); Neutrophil % 91.6 % (47-70); POSITIVE COUNT NO; POSITIVE DIFFERENTIAL YES; POSITIVE MORPHOLOGY NO; Platelet Count 197 K/mm3 (150-450); Red Blood Count 3.68 M/mm3 (4.6-6.2)
[2018-01-01 04:57] LABS: ALB/GLOB Ratio 0.9 RATIO (0.9-2.4); AST(SGOT) 37 U/L (15-37); Alanine Aminotransfer ALT/SGPT 61 U/L (16-61); Alkaline Phosphatase 48 U/L (45-117); Anion Gap 10 (5-15); BUN 21 mg/dL (7-18); BUN/Creat Ratio 17.5 RATIO (10-20); Calcium,Total 8.8 mg/dL (8.5-10.1); Chloride 111 mmol/L (98-107); EST Glomerular Filtration Rate 61 mL/min (>60); Est Glom Filt Rate - Afr Amer 74 mL/min (>60); Estimated Creatinine Clearance 36.02 ml/min; Globulin 3.3 g/dL (2.2-4.2); Glucose 141 mg/dL (74-106); Magnesium 2.3 mg/dL (1.6-2.6); Phosphorus 3.1 mg/dL (2.5-4.9); Protein, Total 6.3 g/dL (6.4-8.2); Sodium Level 146 mmol/L (136-145)
[2018-01-01] MEDS: busPIRone 5 MG Tablet PO ×3 (06:48→21:04)
[2018-01-01] MEDS: 0.9% NaCl Peripheral Flush Adult/Peds IV ×2 (06:48→21:04)
[2018-01-01] MEDS: Ipratropium/Albuterol Sulfate 3 ML AMPUL.NEB INHALATION ×5 (06:51→23:27)
[2018-01-01] MEDS: ALPRAZolam 0.25 MG Tablet 0.125 MG PO (06:53)
[2018-01-01 07:08] LABS: Differential Comment SCANNED
[2018-01-01 08:55] LABS: Bedside Glucose 138 mg/dL (70-110)
--- NOTE | 2018-01-01 09:43 | PCM.PN.HOSP ---
Patient Problems: Active and Suspected Problems (Last Updated 12/30/17 @ 13:45 by Kalie Garsia) COPD exacerbation (Acute) Subjective: Breathing fine at rest. Labored respirations with activity. Vitals/I&O's: Vital Signs Temp Pulse Resp BP Pulse Ox 36.7 C 84 17 146/80 H 100 01/01/18 07:32 01/01/18 07:32 01/01/18 07:32 01/01/18 07:32 01/01/18 07:32 Oxygen Flow Rate (L/min) 2 Oxygen Delivery Method Room Air Weight: 63.4 kg Body Mass Index (BMI) 25.1 Intake and Output for Last 24 Hours 12/30/17 12/31/17 01/01/18 23:59 23:59 23:59 Intake Total 3791.5 / 3791.5 3849 / 3849 480 / 480 Output Total 1725 / 1725 1075 / 1075 1400 / 1400 Balance 2066.5 / 2066.5 2774 / 2774 -920 / -920 General: Alert, No apparent distress, - - no respiratory distress. no conversational dyspnea. HEENT: Atraumatic, Normocephalic Oral: Moist Mucosa, No Gingival or Mucosal Lesions/ Ulcerations Neck: No Nodes, Thyroid Normal Size and Texture Lungs: Diminished, - - coarse BS bilaterally. Cardiovascular: Regular rate, Regular Rhythm, Normal S1, Normal S2, No murmurs Abdomen: Bowel Sounds Present, Soft, Non Tender, Non-Distended, No Hepato-splenomegaly Extremities: No edema, No Calf Tenderness Skin: No rashes, No breakdown Musculoskeletal: No Tenderness to Palpation of Joints or Extremities, Muscle Wasting Neurological: Muscle tone normal, Coordination normal Psych/Mental Status: Normal Affect, Appropriate Microbiology Past 72 Hours 12/30/17 04:10 Mucosa - Nose Respiratory Panel (PCR) - Final Laboratory Results 12/31/17 12:16: POC Glucose 161 H 12/31/17 17:02: POC Glucose 202 H 12/31/17 22:12: POC Glucose 228 H 01/01/18 04:30: WBC 13.0 H, RBC 3.68 L, Hgb 9.7 L, Hct 31.9 L, MCV 86.7, MCH 26.4 L, MCHC 30.4 L, RDW 15.0 H, RDW Differential 46.0 H, Plt Count 197, MPV 9.0, Immature Gran % (Auto) 0.700, Neut % (Auto) 91.6 H, Lymph % (Auto) 2.6 L, [place] % (Auto) 5.1, Eos % (Auto) 0.0, Baso % (Auto) 0.0, Absolute Neuts (auto) 12.0 H, Absolute Lymphs (auto) 0.34 L, Total Counted Not Reportable, Differential Comment SCANNED 01/01/18 04:30: Sodium 146 H, Potassium 4.0, Chloride 111 H, Carbon Dioxide 25.0, Anion Gap 10, BUN 21 H, Creatinine 1.20, Estim Creat Clear Calc 36.02, Est GFR (MDRD) Af Amer 74, Est GFR (MDRD) Non-Af 61, BUN/Creatinine Ratio 17.5, Glucose 141 H, Calcium 8.8, Phosphorus 3.1, Magnesium 2.3, Total Bilirubin 0.30, AST 37, ALT 61, Alkaline Phosphatase 48, Total Protein 6.3 L, Albumin 3.0 L, Globulin 3.3, Albumin/Globulin Ratio 0.9 01/01/18 08:51: POC Glucose 138 H Current Medications Acetaminophen (Tylenol) 650 mg PO Q6H PRN PRN PRN Reason: Mild Pain (scale 0-3)/T>100.7 Al Hydroxide/Mg Hydroxide (Mylanta Ii) 30 ml PO Q6H PRN PRN PRN Reason: Gastric burning Albuterol Sulfate (Ventolin Aerosols) 2.5 mg INHALATION Q2H PRN PRN PRN Reason: SHORTNESS OF BREATH Albuterol/Ipratropium (Duoneb) 3 ml INHALATION Q4H.RT [facility] Last Admin: 01/01/18 06:51 Dose: 3 ml Alprazolam (Xanax) 0.125 mg PO TID [facility] Last Admin: 01/01/18 06:53 Dose: 0.125 mg Aspirin (Ecotrin) 81 mg PO DAILY [facility] Last Admin: 12/31/17 08:12 Dose: 81 mg Atorvastatin Calcium (Lipitor) 40 mg PO QHS [facility] Last Admin: 12/31/17 21:55 Dose: 40 mg Buspirone HCl (Buspar) 5 mg PO TID [facility] Last Admin: 01/01/18 06:48 Dose: 5 mg Clopidogrel Bisulfate (Plavix) 75 mg PO DAILY [facility] Last Admin: 12/31/17 08:12 Dose: 75 mg Dorzolamide HCl (Trusopt) 1 drop EACH EYE BID [facility] Last Admin: 12/31/17 21:57 Dose: 1 drop Finasteride (Proscar) 5 mg PO DAILY [facility] Last Admin: 12/31/17 08:12 Dose: 5 mg Guaifenesin (Mucinex) 1,200 mg PO BID [facility] Last Admin: 12/31/17 21:56 Dose: 1,200 mg Heparin Sodium (Porcine) (Heparin Na) 5,000 unit SC Q12 [facility] Last Admin: 12/31/17 21:55 Dose: 5,000 unit Sodium Chloride () 250 mls @ 15 mls/hr IV .[id number] PRN PRN Reason: SALINE FLUSH Insulin Glargine (Lantus (Bkc)) 8 units SC QHS [facility] Last Admin: 12/31/17 22:13 Dose: 8 units Insulin Human Lispro (Humalog Kwikpen (Bk)) 0 unit SC ACHS [facility]; Protocol Last Admin: 01/01/18 08:52 Dose: Not Given Latanoprost (Xalatan Opthalmic) 1 drop OPHTHALMIC QHS [facility] Last Admin: 12/31/17 21:57 Dose: 1 drop Lorazepam (Ativan) 0.5 mg IV Q4H PRN PRN PRN Reason: ANXIETY Last Admin: 12/31/17 03:08 Dose: 0.5 mg Magnesium Hydroxide (Milk Of Magnesia) 30 ml PO DAILY PRN PRN PRN Reason: Constipation Methylprednisolone (Solu-Medrol) 40 mg IV Q8 [facility] Last Admin: 01/01/18 06:47 Dose: 40 mg Metoprolol Tartrate (Lopressor (Beta Nick)) 25 mg PO BID [facility] Last Admin: 12/31/17 21:56 Dose: 25 mg Mirtazapine (Remeron) 15 mg PO QHS [facility] Last Admin: 12/31/17 21:56 Dose: 15 mg Montelukast Sodium (Singulair) 10 mg PO DAILY [facility] Last Admin: 12/31/17 10:44 Dose: 10 mg Nutritional Formula (Lactose Free) (Glucerna Shake) 120 ml PO 4X/DAY [facility] Last Admin: 10/28/18 21:55 Dose: 120 ml Ondansetron HCl (Zofran) 4 mg IV Q8H PRN PRN PRN Reason: NAUSEA Pantoprazole Sodium (Protonix) 20 mg PO DAILY [facility] Last Admin: 12/31/17 08:12 Dose: 20 mg Promethazine HCl (Phenergan) 12.5 mg IV Q6H PRN PRN PRN Reason: NAUSEA/VOMITING Sodium Chloride () 5 - 30 ml IV UD PRN PRN Reason: SALINE FLUSH Last Admin: 01/01/18 06:48 Dose: 20 ml Tamsulosin HCl (Flomax) 0.4 mg PO DAILY [facility] Last Admin: 12/31/17 08:13 Dose: 0.4 mg Throat Lozenges (Cepacol Sore Throat Lozenge) 2 lozenge MUCOUS MEM Q2H PRN PRN PRN Reason: SORE THROAT Last Admin: 12/30/17 22:23 Dose: 1 lozenge Trazodone HCl (Desyrel) 50 mg PO QHS [facility] Last Admin: 12/31/17 21:55 Dose: 50 mg Venlafaxine HCl (Effexor Xr) 225 mg PO DAILY [facility] Last Admin: 12/31/17 11:17 Dose: 225 mg Medical Necessity - Tobacco Use Smoking Status: Former smoker Tobacco Use: Non-smoker Assessment/Plan All Active Problems (Last Updated 12/30/17 @ 13:45 by Kalie Garsia) Chest pain (Resolved) Acute respiratory failure with hypoxia (Ruled-out) COPD exacerbation (Acute) Severe sepsis (Ruled-out) Lactic acidosis (Resolved) 1. COPD exacerbation, acute Improving Steroids being weaned today Continue with bronchodilators DC scheduled Xanax as that is a respiratory depressant [facility] 2. Lactic acidosis Likely secondary to COPD exacerbation Not due to to severe sepsis as well as mentioned initially in the history and physical Infectious workup, with a rotatory panel blood cultures, were negative. 3. Recent non-STEMI Status post PCI to the mid RCA on November 4. Continue with aspirin, high intensity statin, Plavix, metoprolol. Follow-up with cardiology as outpatient 4. Diabetes mellitus type 2 Fair control Continue with Lantus and sliding scale insulin 5. DVT prophylaxis with heparin Code Visit Inpatient E&M: 98224 [facility] L[facility]
--- NOTE | 2018-01-01 09:53 | PN_ITS ---
Patient Problems: Active and Suspected Problems (Last Updated 12/30/17 @ 13:45 by Kalie Garsia) COPD exacerbation (Acute) Subjective: Breathing fine at rest. Labored respirations with activity. Vitals/I&O's: Vital Signs Temp Pulse Resp BP Pulse Ox 36.7 C 84 17 146/80 H 100 01/01/18 07:32 01/01/18 07:32 01/01/18 07:32 01/01/18 07:32 01/01/18 07:32 Oxygen Flow Rate (L/min) 2 Oxygen Delivery Method Room Air Weight: 63.4 kg Body Mass Index (BMI) 25.1 Intake and Output for Last 24 Hours 12/30/17 12/31/17 01/01/18 23:59 23:59 23:59 Intake Total 3791.5 / 3791.5 3849 / 3849 480 / 480 Output Total 1725 / 1725 1075 / 1075 1400 / 1400 Balance 2066.5 / 2066.5 2774 / 2774 -920 / -920 General: Alert, No apparent distress, - - no respiratory distress. no conversational dyspnea. HEENT: Atraumatic, Normocephalic Oral: Moist Mucosa, No Gingival or Mucosal Lesions/ Ulcerations Neck: No Nodes, Thyroid Normal Size and Texture Lungs: Diminished, - - coarse BS bilaterally. Cardiovascular: Regular rate, Regular Rhythm, Normal S1, Normal S2, No murmurs Abdomen: Bowel Sounds Present, Soft, Non Tender, Non-Distended, No Hepato- splenomegaly Extremities: No edema, No Calf Tenderness Skin: No rashes, No breakdown Musculoskeletal: No Tenderness to Palpation of Joints or Extremities, Muscle Wasting Neurological: Muscle tone normal, Coordination normal Psych/Mental Status: Normal Affect, Appropriate Microbiology Past 72 Hours 12/30/17 04:10 Mucosa - Nose Respiratory Panel (PCR) - Final Laboratory Results 12/31/17 12:16: POC Glucose 161 H 12/31/17 17:02: POC Glucose 202 H 12/31/17 22:12: POC Glucose 228 H 01/01/18 04:30: WBC 13.0 H, RBC 3.68 L, Hgb 9.7 L, Hct 31.9 L, MCV 86.7, MCH 26.4 L, MCHC 30.4 L, RDW 15.0 H, RDW Differential 46.0 H, Plt Count 197, MPV 9.0, Immature Gran % (Auto) 0.700, Neut % (Auto) 91.6 H, Lymph % (Auto) 2.6 L, [place] % (Auto) 5.1, Eos % (Auto) 0.0, Baso % (Auto) 0.0, Absolute Neuts (auto) 12.0 H, Absolute Lymphs (auto) 0.34 L, Total Counted Not Reportable, Differential Comment SCANNED 01/01/18 04:30: Sodium 146 H, Potassium 4.0, Chloride 111 H, Carbon Dioxide 25.0, Anion Gap 10, BUN 21 H, Creatinine 1.20, Estim Creat Clear Calc 36.02, Est GFR (MDRD) Af Amer 74, Est GFR (MDRD) Non-Af 61, BUN/Creatinine Ratio 17.5, Glucose 141 H, Calcium 8.8, Phosphorus 3.1, Magnesium 2.3, Total Bilirubin 0.30, AST 37, ALT 61, Alkaline Phosphatase 48, Total Protein 6.3 L, Albumin 3.0 L, Globulin 3.3, Albumin/Globulin Ratio 0.9 01/01/18 08:51: POC Glucose 138 H Current Medications Acetaminophen (Tylenol) 650 mg PO Q6H PRN PRN PRN Reason: Mild Pain (scale 0-3)/T>100.7 Al Hydroxide/Mg Hydroxide (Mylanta Ii) 30 ml PO Q6H PRN PRN PRN Reason: Gastric burning Albuterol Sulfate (Ventolin Aerosols) 2.5 mg INHALATION Q2H PRN PRN PRN Reason: SHORTNESS OF BREATH Albuterol/Ipratropium (Duoneb) 3 ml INHALATION Q4H.RT [facility] Last Admin: 01/01/18 06:51 Dose: 3 ml Alprazolam (Xanax) 0.125 mg PO TID [facility] Last Admin: 01/01/18 06:53 Dose: 0.125 mg Aspirin (Ecotrin) 81 mg PO DAILY [facility] Last Admin: 12/31/17 08:12 Dose: 81 mg Atorvastatin Calcium (Lipitor) 40 mg PO QHS [facility] Last Admin: 12/31/17 21:55 Dose: 40 mg Buspirone HCl (Buspar) 5 mg PO TID [facility] Last Admin: 01/01/18 06:48 Dose: 5 mg Clopidogrel Bisulfate (Plavix) 75 mg PO DAILY [facility] Last Admin: 12/31/17 08:12 Dose: 75 mg Dorzolamide HCl (Trusopt) 1 drop EACH EYE BID [facility] Last Admin: 12/31/17 21:57 Dose: 1 drop Finasteride (Proscar) 5 mg PO DAILY [facility] Last Admin: 12/31/17 08:12 Dose: 5 mg Guaifenesin (Mucinex) 1,200 mg PO BID [facility] Last Admin: 12/31/17 21:56 Dose: 1,200 mg Heparin Sodium (Porcine) (Heparin Na) 5,000 unit SC Q12 [facility] Last Admin: 12/31/17 21:55 Dose: 5,000 unit Sodium Chloride () 250 mls @ 15 mls/hr IV .[id number] PRN PRN Reason: SALINE FLUSH Insulin Glargine (Lantus (Bkc)) 8 units SC QHS [facility] Last Admin: 12/31/17 22:13 Dose: 8 units Insulin Human Lispro (Humalog Kwikpen (Bk)) 0 unit SC ACHS [facility]; Protocol Last Admin: 01/01/18 08:52 Dose: Not Given Latanoprost (Xalatan Opthalmic) 1 drop OPHTHALMIC QHS [facility] Last Admin: 12/31/17 21:57 Dose: 1 drop Lorazepam (Ativan) 0.5 mg IV Q4H PRN PRN PRN Reason: ANXIETY Last Admin: 12/31/17 03:08 Dose: 0.5 mg Magnesium Hydroxide (Milk Of Magnesia) 30 ml PO DAILY PRN PRN PRN Reason: Constipation Methylprednisolone (Solu-Medrol) 40 mg IV Q8 [facility] Last Admin: 01/01/18 06:47 Dose: 40 mg Metoprolol Tartrate (Lopressor (Beta Nick)) 25 mg PO BID [facility] Last Admin: 12/31/17 21:56 Dose: 25 mg Mirtazapine (Remeron) 15 mg PO QHS [facility] Last Admin: 12/31/17 21:56 Dose: 15 mg Montelukast Sodium (Singulair) 10 mg PO DAILY [facility] Last Admin: 12/31/17 10:44 Dose: 10 mg Nutritional Formula (Lactose Free) (Glucerna Shake) 120 ml PO 4X/DAY [facility] Last Admin: 10/28/18 21:55 Dose: 120 ml Ondansetron HCl (Zofran) 4 mg IV Q8H PRN PRN PRN Reason: NAUSEA Pantoprazole Sodium (Protonix) 20 mg PO DAILY [facility] Last Admin: 12/31/17 08:12 Dose: 20 mg Promethazine HCl (Phenergan) 12.5 mg IV Q6H PRN PRN PRN Reason: NAUSEA/VOMITING Sodium Chloride () 5 - 30 ml IV UD PRN PRN Reason: SALINE FLUSH Last Admin: 01/01/18 06:48 Dose: 20 ml Tamsulosin HCl (Flomax) 0.4 mg PO DAILY [facility] Last Admin: 12/31/17 08:13 Dose: 0.4 mg Throat Lozenges (Cepacol Sore Throat Lozenge) 2 lozenge MUCOUS MEM Q2H PRN PRN PRN Reason: SORE THROAT Last Admin: 12/30/17 22:23 Dose: 1 lozenge Trazodone HCl (Desyrel) 50 mg PO QHS [facility] Last Admin: 12/31/17 21:55 Dose: 50 mg Venlafaxine HCl (Effexor Xr) 225 mg PO DAILY [facility] Last Admin: 12/31/17 11:17 Dose: 225 mg Medical Necessity - Tobacco Use Smoking Status: Former smoker Tobacco Use: Non-smoker Assessment/Plan All Active Problems (Last Updated 12/30/17 @ 13:45 by Kalie Garsia) Chest pain (Resolved) Acute respiratory failure with hypoxia (Ruled-out) COPD exacerbation (Acute) Severe sepsis (Ruled-out) Lactic acidosis (Resolved) 1. COPD exacerbation, acute * Improving * Steroids being weaned today * Continue with bronchodilators * DC scheduled Xanax as that is a respiratory depressant * [facility] 2. Lactic acidosis * Likely secondary to COPD exacerbation * Not due to to severe sepsis as well as mentioned initially in the history and physical * Infectious workup, with a rotatory panel blood cultures, were negative. 3. Recent non-STEMI * Status post PCI to the mid RCA on November 07. * Continue with aspirin, high intensity statin, Plavix, metoprolol. * Follow-up with cardiology as outpatient 4. Diabetes mellitus type 2 * Fair control * Continue with Lantus and sliding scale insulin 5. DVT prophylaxis with heparin Code Visit Inpatient E&M: [id number] [facility] L3
--- NOTE | 2018-01-01 10:46 | PCM.PN.INT ---
Subjective: Patient did well overnight. No acute issues were reported. Patient was not transfer to PCU secondary to bed availability. Patient feels subjectively improved compared to yesterday. Patient does have a cough, but denies any production. Patient is still on minimal nasal cannula oxygen to maintain saturations. General: Alert, Oriented x3, Cooperative, No apparent distress, - - Mild conversational dyspnea HEENT: Atraumatic, PERRLA, EOMI, Normocephalic, - - Glasses in place Oral: Moist Mucosa, No Gingival or Mucosal Lesions/ Ulcerations Neck: Supple, No JVD, No Nodes, Trachea Midline Lungs: No rhonchi, No rales, Diminished, Wheezes Cardiovascular: Regular rate, Regular Rhythm, Normal S1, Normal S2, Murmur - Grade 2 out of 6 systolic ejection murmur at the left sternal border, No rub noted, No Gallop Abdomen: Bowel Sounds Present, Soft, Non Tender, Non-Distended Extremities: No cyanosis, Clubbing, Edema - Trace lower extremity Skin: No rashes, No breakdown Musculoskeletal: No Tenderness to Palpation of Joints or Extremities Lymphatic: No Cervical, Supraclavicular, or Inguinal Adenopathy Neurological: Cranial nerves II-XII grossly intact, Neuro grossly intact, Motor Exam 5/5 strength throughout Psych/Mental Status: Alert and oriented to time, place, person, mood and affect Vital Signs Temp Pulse Resp BP Pulse Ox 36.7 C 84 17 146/80 H 100 01/01/18 07:32 01/01/18 07:32 01/01/18 07:32 01/01/18 07:32 01/01/18 07:32 Oxygen Flow Rate (L/min) 2 Oxygen Delivery Method Nasal Cannula Weight: 63.4 kg Body Mass Index (BMI) 25.1 Intake and Output for Last 24 Hours 12/30/17 12/31/17 01/01/18 23:59 23:59 23:59 Intake Total 3791.5 / 3791.5 3849 / 3849 480 / 480 Output Total 1725 / 1725 1075 / 1075 1400 / 1400 Balance 2066.5 / 2066.5 2774 / 2774 -920 / -920 Labs (Last 48 Hours) 12/30/17 12/30/17 12/30/17 11:48 16:35 21:32 WBC RBC Hgb Hct MCV MCH MCHC RDW RDW Differential Plt Count MPV Immature Gran % (Auto) Neut % (Auto) Lymph % (Auto) [place] % (Auto) Eos % (Auto) Baso % (Auto) Absolute Neuts (auto) Absolute Lymphs (auto) Total Counted Differential Comment Sodium Potassium Chloride Carbon Dioxide Anion Gap BUN Creatinine Estim Creat Clear Calc Est GFR (MDRD) Af Amer Est GFR (MDRD) Non-Af BUN/Creatinine Ratio Glucose Calcium Phosphorus Magnesium Total Bilirubin AST ALT Alkaline Phosphatase Total Protein Albumin Globulin Albumin/Globulin Ratio POC Glucose 211 H 155 H 173 H 12/31/17 12/31/17 12/31/17 03:05 03:05 06:52 WBC 13.7 H RBC 3.44 L Hgb 9.3 L Hct 29.8 L MCV 86.6 MCH 27.0 MCHC 31.2 L RDW 14.9 H RDW Differential 45.8 H Plt Count 191 MPV 9.5 Immature Gran % (Auto) 0.300 Neut % (Auto) 92.7 H Lymph % (Auto) 3.1 L [place] % (Auto) 3.9 Eos % (Auto) 0.0 Baso % (Auto) 0.0 Absolute Neuts (auto) 12.7 H Absolute Lymphs (auto) 0.42 L Total Counted Not Reportable Differential Comment SCANNED Sodium 146 H Potassium 4.0 Chloride 113 H Carbon Dioxide 24.0 Anion Gap 9 BUN 20 H Creatinine 1.20 Estim Creat Clear Calc 36.02 Est GFR (MDRD) Af Amer 74 Est GFR (MDRD) Non-Af 61 BUN/Creatinine Ratio 16.7 Glucose 82 Calcium 8.2 L Phosphorus 3.2 Magnesium 2.1 Total Bilirubin 0.40 AST 20 ALT 24 Alkaline Phosphatase 44 L Total Protein 5.8 L Albumin 2.7 L Globulin 3.1 Albumin/Globulin Ratio 0.9 POC Glucose 75 12/31/17 12/31/17 12/31/17 12:16 17:02 22:12 WBC RBC Hgb Hct MCV MCH MCHC RDW RDW Differential Plt Count MPV Immature Gran % (Auto) Neut % (Auto) Lymph % (Auto) [place] % (Auto) Eos % (Auto) Baso % (Auto) Absolute Neuts (auto) Absolute Lymphs (auto) Total Counted Differential Comment Sodium Potassium Chloride Carbon Dioxide Anion Gap BUN Creatinine Estim Creat Clear Calc Est GFR (MDRD) Af Amer Est GFR (MDRD) Non-Af BUN/Creatinine Ratio Glucose Calcium Phosphorus Magnesium Total Bilirubin AST ALT Alkaline Phosphatase Total Protein Albumin Globulin Albumin/Globulin Ratio POC Glucose 161 H 202 H 228 H 01/01/18 01/01/18 01/01/18 04:30 04:30 08:51 WBC 13.0 H RBC 3.68 L Hgb 9.7 L Hct 31.9 L MCV 86.7 MCH 26.4 L MCHC 30.4 L RDW 15.0 H RDW Differential 46.0 H Plt Count 197 MPV 9.0 Immature Gran % (Auto) 0.700 Neut % (Auto) 91.6 H Lymph % (Auto) 2.6 L [place] % (Auto) 5.1 Eos % (Auto) 0.0 Baso % (Auto) 0.0 Absolute Neuts (auto) 12.0 H Absolute Lymphs (auto) 0.34 L Total Counted Not Reportable Differential Comment SCANNED Sodium 146 H Potassium 4.0 Chloride 111 H Carbon Dioxide 25.0 Anion Gap 10 BUN 21 H Creatinine 1.20 Estim Creat Clear Calc 36.02 Est GFR (MDRD) Af Amer 74 Est GFR (MDRD) Non-Af 61 BUN/Creatinine Ratio 17.5 Glucose 141 H Calcium 8.8 Phosphorus 3.1 Magnesium 2.3 Total Bilirubin 0.30 AST 37 ALT 61 Alkaline Phosphatase 48 Total Protein 6.3 L Albumin 3.0 L Globulin 3.3 Albumin/Globulin Ratio 0.9 POC Glucose 138 H Microbiology 12/30/17 04:10 Mucosa - Nose Respiratory Panel (PCR) - Final Clinical Impression(s) from Imaging Studies Chest X-Ray 01/01/18 04:20 IMPRESSION: No acute cardiopulmonary disease. Electronically Signed: Yusuf Ying MD at 5:36 EDT , Service support , Medical Necessity - Tobacco Use Smoking Status: Former smoker Tobacco Use: Non-smoker Assessment/Plan All Active Problems (Last Updated 12/30/17 @ 13:45 by Kalie Garsia) Lactic acidosis (Resolved) Chest pain (Resolved) Acute respiratory failure with hypoxia (Ruled-out) COPD exacerbation (Acute) Severe sepsis (Ruled-out) RECOMMENDATIONS: 1. Continue BiPAP as needed and with sleep 2. Wean steroid therapy. 3. Continue baseline anxiolytic medications. 4. Wean supplemental oxygen to maintain saturations 88-92%. 5. Continue scheduled bronchodilators. 6. Outpatient noninvasive ventilator versus palliative care through [place] IMPRESSIONS: 1. Acute on chronic hypoxemic respiratory failure Patient appears to be improving on current regimen. Patient is on 10 mg of prednisone therapy at baseline. Patient was on triple therapy as an outpatient. Have discussed the use of noninvasive ventilator versus palliative care as an outpatient. Patient is a [place] patient intends to get most of his care through them. Willing to initiate noninvasive ventilator through Medicare if patient agrees. In the interim, use of BiPAP therapy would be appropriate, especially with sleep. Patient currently on no antibiotics. Wean steroids. Possibly transition to prednisone therapy tomorrow. Do anticipate desaturation with exertion, so saturations should be watched during therapy. 2. Acute kidney injury Resolved. Likely prerenal in etiology, as the patient has responded to gentle IV fluid hydration. Urine output is appropriate. No indication for renal replacement therapy at this time. 3. Lactic acidemia Resolved. Low clinical index of suspicion for underlying pulmonary infectious process. Suspect that it was the patient's increased work of breathing which led to the lactic acidemia. 4. Anxiety/depression The patient has a great deal of anxiety and depression at baseline. He should ideally be following with palliative care. Recommend weaning from BiPAP so that his baseline anxiolytic medications can be restarted. 5. Coronary artery disease/BPH/hypertension/allergic rhinitis Complicates care, management, recovery and prognosis. Likely okay to continue home medications as ordered. Code Visit Inpatient E&M: [id number] [facility] L3
--- NOTE | 2018-01-01 10:51 | PN_ITS ---
Subjective: Patient did well overnight. No acute issues were reported. Patient was not transfer to PCU secondary to bed availability. Patient feels subjectively improved compared to yesterday. Patient does have a cough, but denies any production. Patient is still on minimal nasal cannula oxygen to maintain saturations. General: Alert, Oriented x3, Cooperative, No apparent distress, - - Mild conversational dyspnea HEENT: Atraumatic, PERRLA, EOMI, Normocephalic, - - Glasses in place Oral: Moist Mucosa, No Gingival or Mucosal Lesions/ Ulcerations Neck: Supple, No JVD, No Nodes, Trachea Midline Lungs: No rhonchi, No rales, Diminished, Wheezes Cardiovascular: Regular rate, Regular Rhythm, Normal S1, Normal S2, Murmur - Grade 2 out of 6 systolic ejection murmur at the left sternal border, No rub not ed, No Gallop Abdomen: Bowel Sounds Present, Soft, Non Tender, Non-Distended Extremities: No cyanosis, Clubbing, Edema - Trace lower extremity Skin: No rashes, No breakdown Musculoskeletal: No Tenderness to Palpation of Joints or Extremities Lymphatic: No Cervical, Supraclavicular, or Inguinal Adenopathy Neurological: Cranial nerves II-XII grossly intact, Neuro grossly intact, Motor Exam 5/5 strength throughout Psych/Mental Status: Alert and oriented to time, place, person, mood and affect Vital Signs Temp Pulse Resp BP Pulse Ox 36.7 C 84 17 146/80 H 100 01/01/18 07:32 01/01/18 07:32 01/01/18 07:32 01/01/18 07:32 01/01/18 07:32 Oxygen Flow Rate (L/min) 2 Oxygen Delivery Method Nasal Cannula Weight: 63.4 kg Body Mass Index (BMI) 25.1 Intake and Output for Last 24 Hours 12/30/17 12/31/17 01/01/18 23:59 23:59 23:59 Intake Total 3791.5 / 3791.5 3849 / 3849 480 / 480 Output Total 1725 / 1725 1075 / 1075 1400 / 1400 Balance 2066.5 / 2066.5 2774 / 2774 -920 / -920 Labs (Last 48 Hours) 12/30/17 12/30/17 12/30/17 11:48 16:35 21:32 WBC RBC Hgb Hct MCV MCH MCHC RDW RDW Differential Plt Count MPV Immature Gran % (Auto) Neut % (Auto) Lymph % (Auto) [place] % (Auto) Eos % (Auto) Baso % (Auto) Absolute Neuts (auto) Absolute Lymphs (auto) Total Counted Differential Comment Sodium Potassium Chloride Carbon Dioxide Anion Gap BUN Creatinine Estim Creat Clear Calc Est GFR (MDRD) Af Amer Est GFR (MDRD) Non-Af BUN/Creatinine Ratio Glucose Calcium Phosphorus Magnesium Total Bilirubin AST ALT Alkaline Phosphatase Total Protein Albumin Globulin Albumin/Globulin Ratio POC Glucose 211 H 155 H 173 H 12/31/17 12/31/17 12/31/17 03:05 03:05 06:52 WBC 13.7 H RBC 3.44 L Hgb 9.3 L Hct 29.8 L MCV 86.6 MCH 27.0 MCHC 31.2 L RDW 14.9 H RDW Differential 45.8 H Plt Count 191 MPV 9.5 Immature Gran % (Auto) 0.300 Neut % (Auto) 92.7 H Lymph % (Auto) 3.1 L [place] % (Auto) 3.9 Eos % (Auto) 0.0 Baso % (Auto) 0.0 Absolute Neuts (auto) 12.7 H Absolute Lymphs (auto) 0.42 L Total Counted Not Reportable Differential Comment SCANNED Sodium 146 H Potassium 4.0 Chloride 113 H Carbon Dioxide 24.0 Anion Gap 9 BUN 20 H Creatinine 1.20 Estim Creat Clear Calc 36.02 Est GFR (MDRD) Af Amer 74 Est GFR (MDRD) Non-Af 61 BUN/Creatinine Ratio 16.7 Glucose 82 Calcium 8.2 L Phosphorus 3.2 Magnesium 2.1 Total Bilirubin 0.40 AST 20 ALT 24 Alkaline Phosphatase 44 L Total Protein 5.8 L Albumin 2.7 L Globulin 3.1 Albumin/Globulin Ratio 0.9 POC Glucose 75 12/31/17 12/31/17 12/31/17 12:16 17:02 22:12 WBC RBC Hgb Hct MCV MCH MCHC RDW RDW Differential Plt Count MPV Immature Gran % (Auto) Neut % (Auto) Lymph % (Auto) [place] % (Auto) Eos % (Auto) Baso % (Auto) Absolute Neuts (auto) Absolute Lymphs (auto) Total Counted Differential Comment Sodium Potassium Chloride Carbon Dioxide Anion Gap BUN Creatinine Estim Creat Clear Calc Est GFR (MDRD) Af Amer Est GFR (MDRD) Non-Af BUN/Creatinine Ratio Glucose Calcium Phosphorus Magnesium Total Bilirubin AST ALT Alkaline Phosphatase Total Protein Albumin Globulin Albumin/Globulin Ratio POC Glucose 161 H 202 H 228 H 01/01/18 01/01/18 01/01/18 04:30 04:30 08:51 WBC 13.0 H RBC 3.68 L Hgb 9.7 L Hct 31.9 L MCV 86.7 MCH 26.4 L MCHC 30.4 L RDW 15.0 H RDW Differential 46.0 H Plt Count 197 MPV 9.0 Immature Gran % (Auto) 0.700 Neut % (Auto) 91.6 H Lymph % (Auto) 2.6 L [place] % (Auto) 5.1 Eos % (Auto) 0.0 Baso % (Auto) 0.0 Absolute Neuts (auto) 12.0 H Absolute Lymphs (auto) 0.34 L Total Counted Not Reportable Differential Comment SCANNED Sodium 146 H Potassium 4.0 Chloride 111 H Carbon Dioxide 25.0 Anion Gap 10 BUN 21 H Creatinine 1.20 Estim Creat Clear Calc 36.02 Est GFR (MDRD) Af Amer 74 Est GFR (MDRD) Non-Af 61 BUN/Creatinine Ratio 17.5 Glucose 141 H Calcium 8.8 Phosphorus 3.1 Magnesium 2.3 Total Bilirubin 0.30 AST 37 ALT 61 Alkaline Phosphatase 48 Total Protein 6.3 L Albumin 3.0 L Globulin 3.3 Albumin/Globulin Ratio 0.9 POC Glucose 138 H Microbiology 12/30/17 04:10 Mucosa - Nose Respiratory Panel (PCR) - Final Clinical Impression(s) from Imaging Studies Chest X-Ray 01/01/18 04:20 IMPRESSION: No acute cardiopulmonary disease. Electronically Signed: Yusuf Ying MD at 5:36 EDT , Service support , Medical Necessity - Tobacco Use Smoking Status: Former smoker Tobacco Use: Non-smoker Assessment/Plan All Active Problems (Last Updated 12/30/17 @ 13:45 by Kalie Garsia) Lactic acidosis (Resolved) Chest pain (Resolved) Acute respiratory failure with hypoxia (Ruled-out) COPD exacerbation (Acute) Severe sepsis (Ruled-out) RECOMMENDATIONS: 1. Continue BiPAP as needed and with sleep 2. Wean steroid therapy. 3. Continue baseline anxiolytic medications. 4. Wean supplemental oxygen to maintain saturations 88-92%. 5. Continue scheduled bronchodilators. 6. Outpatient noninvasive ventilator versus palliative care through [place] IMPRESSIONS: 1. Acute on chronic hypoxemic respiratory failure Patient appears to be improving on current regimen. Patient is on 10 mg of prednisone therapy at baseline. Patient was on triple therapy as an outpatient. Have discussed the use of noninvasive ventilator versus palliative care as an outpatient. Patient is a [place] patient intends to get most of his care through them. Willing to initiate noninvasive ventilator through Medicare if patient agrees. In the interim, use of BiPAP therapy would be appropriate, especially with sleep. Patient currently on no antibiotics. Wean steroids. Possibly transition to prednisone therapy tomorrow. Do anticipate desaturation with exertion, so saturations should be watched during therapy. 2. Acute kidney injury Resolved. Likely prerenal in etiology, as the patient has responded to gentle IV fluid hydration. Urine output is appropriate. No indication for renal replacement therapy at this time. 3. Lactic acidemia Resolved. Low clinical index of suspicion for underlying pulmonary infectious process. Suspect that it was the patient's increased work of breathing which led to the lactic acidemia. 4. Anxiety/depression The patient has a great deal of anxiety and depression at baseline. He should ideally be following with palliative care. Recommend weaning from BiPAP so that his baseline anxiolytic medications can be restarted. 5. Coronary artery disease/BPH/hypertension/allergic rhinitis Complicates care, management, recovery and prognosis. Likely okay to continue home medications as ordered. Code Visit Inpatient E&M: [id number] [facility] L3
[2018-01-01] MEDS: Metoprolol Tartrate 25 MG Tablet PO ×2 (11:23→21:04)
[2018-01-01] MEDS: Tamsulosin HCl 0.4 MG Capsule PO (11:23)
[2018-01-01] MEDS: Venlafaxine XR 75 MG Capsule 225 MG PO (11:23)
[2018-01-01] MEDS: Aspirin E.C. 81 MG Tablet PO (11:23)
[2018-01-01] MEDS: Finasteride 5 MG Tablet PO (11:24)
[2018-01-01] MEDS: Pantoprazole Sodium 20 MG Tablet PO (11:24)
[2018-01-01] MEDS: Montelukast 10 MG Tablet PO (11:24)
[2018-01-01] MEDS: Clopidogrel Bisulfate 75 MG Tablet PO (11:24)
[2018-01-01] MEDS: guaiFENesin 1,200 MG Tablet 1200 MG PO ×2 (11:24→21:04)
[2018-01-01] MEDS: Heparin Injection (Vial) 5,000 UNIT/ML VIAL 5000 UNIT SC ×2 (11:24→21:03)
[2018-01-01] MEDS: Dorzolamide 2% 10ml Bottle 1 DRP EACH EYE ×2 (11:25→21:02)
[2018-01-01] MEDS: Glucerna Shake 120 ML LIQUID PO ×3 (11:26→17:16)
[2018-01-01] MEDS: Insulin Lispro 100 UNIT/ML INSULN.PEN SC ×2 (12:46→21:03)
[2018-01-01 12:50] LABS: Bedside Glucose 177 mg/dL (70-110)
[2018-01-01 16:31] LABS: Bedside Glucose 139 mg/dL (70-110)
[2018-01-01] MEDS: Latanoprost 0.005% 1 Bottle 1 DRP OPHTHALMIC (21:03)
[2018-01-01] MEDS: Atorvastatin Calcium 40 MG Tablet PO (21:04)
[2018-01-01] MEDS: traZODone 50 MG Tablet PO (21:05)
[2018-01-01] MEDS: Mirtazapine 15 MG Tablet PO (21:05)
[2018-01-01 21:26] LABS: Bedside Glucose 172 mg/dL (70-110)
[2018-01-02] VITALS (10 sets, daily range): BP systolic 113–165; BP diastolic 80–86; PULSE 64–90; RESP 16–20; TEMP 36.6–36.8; O2SAT 97–99
[2018-01-02] MEDS: Ipratropium/Albuterol Sulfate 3 ML AMPUL.NEB INHALATION ×3 (03:06→10:47)
[2018-01-02] MEDS: busPIRone 5 MG Tablet PO ×2 (06:08→13:32)
[2018-01-02 06:56] LABS: Absolute Lymphocyte Count 0.55 X10^3/ul (0.83-4.51); Absolute Neutrophil Count 10.3 X10^3/uL (2.0-7.7); Hematocrit 33.2 % (40-54); Lymphocyte # 0.55 X10^3/ul (4.0); Lymphocyte % 4.8 % (19-41); Mean Corp Hgb Conc 30.1 g/gl (32-36); Mean Corpuscular Hgb 26.1 pg (27.0-32.0); Mean Corpuscular Volume 86.7 fL (80-94); Mean Platelet Vol. 9.8 fl (6.2-12.0); Monocyte# 0.62 X10^3/uL; Monocyte% 5.4 % (0-10); Neutrophil # 10.27 X10^3/uL (2.7-7.7); Platelet Count 214 K/mm3 (150-450); RBC Distribution Width CV 14.9 % (11.6-14.6); RBC Distribution Width SD 47.1 fl (35.1-43.9); Red Blood Count 3.83 M/mm3 (4.6-6.2); White Blood Count 11.5 K/mm3 (4.4-11.0)
[2018-01-02 06:58] LABS: Differential Indicated SCAN CRITERIA MET; POSITIVE COUNT NO; POSITIVE DIFFERENTIAL YES; POSITIVE MORPHOLOGY NO
[2018-01-02 07:01] LABS: Bedside Glucose 216 mg/dL (70-110)
[2018-01-02 07:09] LABS: Anion Gap 9 (5-15); BUN 20 mg/dL (7-18); BUN/Creat Ratio 16.9 RATIO (10-20); Calcium,Total 8.7 mg/dL (8.5-10.1); Chloride 105 mmol/L (98-107); Creatinine, Serum 1.18 mg/dL (0.70-1.30); EST Glomerular Filtration Rate 63 mL/min (>60); Est Glom Filt Rate - Afr Amer 76 mL/min (>60); Estimated Creatinine Clearance 36.63 ml/min; Glucose 242 mg/dL (74-106); Potassium 4.5 mmol/L (3.5-5.1); Sodium Level 141 mmol/L (136-145)
[2018-01-02 07:15] LABS: Differential Comment SCANNED; Hypochromasia 1+
[2018-01-02 07:16] LABS: Anisocytosis 2+; Target Cells 1+
[2018-01-02] MEDS: Insulin Lispro 100 UNIT/ML INSULN.PEN SC ×2 (08:24→13:31)
[2018-01-02] MEDS: Aspirin E.C. 81 MG Tablet PO (08:25)
[2018-01-02] MEDS: Glucerna Shake 120 ML LIQUID PO ×2 (08:25→13:31)
[2018-01-02] MEDS: Clopidogrel Bisulfate 75 MG Tablet PO (08:26)
[2018-01-02] MEDS: Metoprolol Tartrate 25 MG Tablet PO (08:26)
[2018-01-02] MEDS: guaiFENesin 1,200 MG Tablet 1200 MG PO (08:26)
[2018-01-02] MEDS: Heparin Injection (Vial) 5,000 UNIT/ML VIAL 5000 UNIT SC (08:26)
[2018-01-02] MEDS: Venlafaxine XR 75 MG Capsule 225 MG PO (08:26)
[2018-01-02] MEDS: Tamsulosin HCl 0.4 MG Capsule PO (08:26)
[2018-01-02] MEDS: Finasteride 5 MG Tablet PO (08:27)
[2018-01-02] MEDS: Montelukast 10 MG Tablet PO (08:27)
[2018-01-02] MEDS: 0.9% NaCl Peripheral Flush Adult/Peds IV (08:27)
[2018-01-02] MEDS: Pantoprazole Sodium 20 MG Tablet PO (08:27)
[2018-01-02] MEDS: Dorzolamide 2% 10ml Bottle 1 DRP EACH EYE (08:28)
--- NOTE | 2018-01-02 09:45 | CASEMGMT ---
Addendum entered by Zee Peterson 01/02/18 13:38: Yuliya from Hospice said patient and his daughter signed Hospice papers. Patient will be d/c home on Hospice today. Daughter will call Hospice when they are leaving the hospital. SW will fax d/c instructions once completed. Zee LANCE Original Note: SW received a call from Yuliya at [facility]. They received a call from patient's daughter. She would like patient to be Hospice when he is d/c home. She is coming in at 11a to meet with patient and his daughter. CHACHA notified RN and rn charge. CHACHA will also notify physician. Zee LANCE
--- NOTE | 2018-01-02 09:48 | PN_ITS ---
Patient Problems: Active and Suspected Problems (Last Updated 12/30/17 @ 13:45 by Kalie Garsia) COPD exacerbation (Acute) Subjective: Patient feels subjectively improved compared to yesterday. Patient did state that he was not able to ambulate too far yesterday. Patient states his cough is improving. Patient is hoping that he gets discharged today. - Physical Exam General: Alert, Oriented x3, Cooperative, No apparent distress, Well developed, Well nourished, - - Speaking in full sentences. No conversational dyspnea appreciated. HEENT: Atraumatic, PERRLA, EOMI, Normocephalic, - - No scleral icterus or injection noted. Oral: Moist Mucosa, No Gingival or Mucosal Lesions/ Ulcerations Neck: Supple, No JVD, No Nodes, Trachea Midline, Thyroid Normal Size and Texture Lungs: No rhonchi, No wheeze, No rales, Diminished, - - Symmetric expansion. No dullness to percussion. Cardiovascular: Regular rate, Regular Rhythm, Normal S1, Normal S2, No murmurs, No rub noted, No Gallop Abdomen: Bowel Sounds Present, Soft, Non Tender, Non-Distended Extremities: No cyanosis, No edema, Capillary Refill Less than 3 Seconds, Clubbing Skin: No rashes, No breakdown Musculoskeletal: No Tenderness to Palpation of Joints or Extremities Lymphatic: No Cervical, Supraclavicular, or Inguinal Adenopathy Neurological: Cranial nerves II-XII grossly intact, Neuro grossly intact, Motor Exam 5/5 strength throughout Psych/Mental Status: Alert and oriented to time, place, person, mood and affect Vital Signs Temp Pulse Resp BP Pulse Ox 36.6 C 75 20 H 165/86 H 97 01/02/18 08:13 01/02/18 08:26 01/02/18 08:13 01/02/18 08:13 01/02/18 08:13 Oxygen Flow Rate (L/min) 2 Oxygen Delivery Method Nasal Cannula Weight: 60.8 kg Body Mass Index (BMI) 25.1 Intake and Output for Last 24 Hours 12/31/17 01/01/18 01/02/18 23:59 23:59 23:59 Intake Total 3849 / 3849 1040 / 1040 240 / 240 Output Total 1075 / 1075 3090 / 3090 1050 / 1050 Balance 2774 / 2774 -2049 / -2049 -810 / -810 Microbiology Past 72 Hours 12/30/17 04:10 Respiratory Panel (PCR) - Final Mucosa - Nose Laboratory Tests Past 24 Hrs 01/02/18 01/02/18 05:54 05:54 WBC 11.5 H RBC 3.83 L Hgb 10.0 L Hct 33.2 L MCV 86.7 MCH 26.1 L MCHC 30.1 L RDW 14.9 H RDW Differential 47.1 H Plt Count 214 MPV 9.8 Immature Gran % (Auto) 0.800 Neut % (Auto) 89.0 H Lymph % (Auto) 4.8 L [place] % (Auto) 5.4 Eos % (Auto) 0.0 Baso % (Auto) 0.0 Absolute Neuts (auto) 10.3 H Absolute Lymphs (auto) 0.55 L Total Counted Not Reportable Differential Comment SCANNED Hypochromasia 1+ Anisocytosis 2+ Target Cells 1+ Sodium 141 Potassium 4.5 Chloride 105 Carbon Dioxide 27.0 Anion Gap 9 BUN 20 H Creatinine 1.18 Estim Creat Clear Calc 36.63 Est GFR (MDRD) Af Amer 76 Est GFR (MDRD) Non-Af 63 BUN/Creatinine Ratio 16.9 Glucose 242 H Calcium 8.7 POC Glucose 01/02/18 01/01/18 01/01/18 06:44 20:54 15:58 POC Glucose 216 H 172 H 139 H 01/01/18 12:43 POC Glucose 177 H Medical Necessity - Tobacco Use Smoking Status: Former smoker Tobacco Use: Non-smoker Assessment/Plan All Active Problems (Last Updated 12/30/17 @ 13:45 by Kalie Garsia) Lactic acidosis (Resolved) Chest pain (Resolved) Acute respiratory failure with hypoxia (Ruled-out) COPD exacerbation (Acute) Severe sepsis (Ruled-out) RECOMMENDATIONS: 1. Continue BiPAP as needed and with sleep 2. Will transition to prednisone therapy. Wean over 12-14 days to 10 mg/day 3. Continue baseline anxiolytic medications. 4. Wean supplemental oxygen to maintain saturations 88-92%. 5. Continue scheduled bronchodilators. 6. Outpatient noninvasive ventilator [facility] 7. Walking oximetry prior to discharge IMPRESSIONS: 1. Acute on chronic hypoxemic respiratory failure Patient appears to be improving on current regimen. Patient is on 10 mg of prednisone therapy at baseline. Patient can resume his baseline triple therapy as an outpatient. Patient will be transition to prednisone therapy. This can be weaned over 12-14 days, but patient should remain on 10 mg/day. Await outcomes with ambulation. If discharged, patient can follow-up in 4-6 weeks in our office with nurse practitioner. 2. Acute kidney injury Resolved. Likely prerenal in etiology, as the patient has responded to gentle IV fluid hydration. Urine output is appropriate. No indication for renal replacement therapy at this time. 3. Lactic acidemia Resolved. Low clinical index of suspicion for underlying pulmonary infectious process. Suspect that it was the patient's increased work of breathing which led to the lactic acidemia. 4. Anxiety/depression The patient has a great deal of anxiety and depression at baseline. He should ideally be following with palliative care. Recommend weaning from BiPAP so that his baseline anxiolytic medications can be restarted. 5. Coronary artery disease/BPH/hypertension/allergic rhinitis Complicates care, management, recovery and prognosis. Likely okay to continue home medications as ordered. Code Visit Inpatient E&M: 70358 Subs Hosp L2
[2018-01-02 11:55] LABS: Bedside Glucose 181 mg/dL (70-110)
[2018-01-02] MEDS: predniSONE 20 MG Tablet 40 MG PO (13:32)
--- NOTE | 2018-01-02 13:43 | PCM.DC ---
- Discharge Diagnoses Current Active Problems: Current Active and Chronic Problems (Last Updated 12/30/17 @ 13:45 by Kalie Garsia) COPD exacerbation (Acute) You will use the following diet at home:: No restrictions Your food should be the consistency of: Regular Call your doctor if you observe: Shortness of breath Allergies/Adverse Reactions: Allergies No Known Allergies Allergy (Verified 12/30/17 00:34) Medications to take at Discharge Albuterol IH (ProAir) [Proair Hfa] 2 puff INHALATION Q4H PRN PRN 10/20/16 Aspirin [Aspirin EC] 81 mg PO DAILY 10/20/16 Dorzolamide HCl [Trusopt] 1 drp OP BID 10/20/16 Finasteride [Proscar] 5 mg PO DAILY 10/20/16 Latanoprost 1 drp OP QHS 10/20/16 Metoprolol Tartrate 25 mg PO BID 10/20/16 Montelukast [Singulair] 10 mg PO DAILY 10/20/16 Omeprazole 20 mg PO DAILY 10/20/16 Tamsulosin HCl [Flomax] 0.4 mg PO DAILY 10/20/16 Tiotropium [place] [Spiriva 18 MCG] 2 puff INHALATION DAILY 10/20/16 Venlafaxine HCl [Effexor Xr] 225 mg PO DAILY 10/20/16 busPIRone [Buspar] 5 mg PO TID 10/20/16 traZODone [Desyrel] 50 mg PO QHS 10/20/16 Cholecalciferol (VIT D3) [Vitamin D3] 4,000 unit PO DAILY 04/09/17 Docusate Sodium [Colace] 100 mg PO BID PRN 04/09/17 budesonide-formoterol HFA 160 mcg-4.5 mcg/actuation aerosol inhaler 2 puff INHALATION BID 07/27/17 Atorvastatin Calcium [Lipitor] 40 mg PO QHS #30 tab 11/09/17 Clopidogrel Bisulfate [Plavix] 75 mg PO DAILY #30 tab 11/09/17 Guaifenesin [Mucinex] 1,200 mg PO BID #20 tab 11/09/17 albuterol sulfate 2.5 mg/3 mL (0.083 %) solution for nebulization 2.5 mg INHALATION Q4H PRN #75 ml 12/04/17 HANDICAP PLACARD #1 ea 12/28/17 insulin glargine (U-100) 100 unit/mL (3 mL) subcutaneous pen 8 unit SC QHS ml 12/28/17 Mirtazapine [Remeron] 15 mg PO QHS 12/30/17 Prednisone 10 mg PO DAILY #0 01/02/18 Prednisone 10 mg PO DAILY #30 tablet 01/02/18 The following prescriptions were given: Prednisone 10 mg PO DAILY #30 tablet [facility] [[facility] - Within 2 Weeks Test Results: Test results from this visit will be discussed in further detail at your follow-up appointment, if applicable. Proposed Discharge Date: 01/02/18
--- NOTE | 2018-01-02 13:44 | PCM.DC.SUM ---
Discharge Date and Diagnosis - Problem List Patient Problems: Active and Suspected Problems (Last Updated 12/30/17 @ 13:45 by Kalie Garsia) COPD exacerbation (Acute) Date of Admission: 12/30/17 Date of Discharge: 01/02/18 - Primary Discharge Diagnosis Active and Suspected Problems (Last Updated 12/30/17 @ 13:45 by Kalie Garsia) COPD exacerbation (Acute) 1. COPD exacerbation, acute Improving Steroids being weaned today Continue with bronchodilators DC scheduled Xanax as that is a respiratory depressant [facility] to [facility] 2. Lactic acidosis Likely secondary to COPD exacerbation Not due to to severe sepsis as well as mentioned initially in the history and physical Infectious workup, with a rotatory panel blood cultures, were negative. 3. Recent non-STEMI Status post PCI to the mid RCA on November 07. Continue with aspirin, high intensity statin, Plavix, metoprolol. Follow-up with cardiology as outpatient 4. Diabetes mellitus type 2 Fair control Continue with Lantus and sliding scale insulin - Secondary Discharge Diagnosis Chronic Problems (Last Updated 12/30/17 @ 13:45 by Kalie Garsia) COPD (chronic obstructive pulmonary disease) (Chronic) Stage 4 very severe COPD by GOLD classification (Chronic) FEV1 45% Asthma, severe persistent (Chronic) NSTEMI (non-ST elevated myocardial infarction) (Chronic) Pure hypercholesterolemia (Chronic) S/P coronary artery stent placement (Chronic) Successful PTCA/SHASTA of the mid RCA with a 3.5 x 38 Promus Synergy, using double wire technique; 85%-->0%, all post dilated with a 3.5 x 12 NC Balloon. Successful PTCA/SHASTA of the Proximal RCA with a 3.5 x 20 Promus Synergy; 75%-->0%, no dissection 11/2017 CAD (coronary artery disease) (Chronic) Successful PTCA/SHASTA of the mid RCA with a 3.5 x 38 Promus Synergy, using double wire technique; 85%-->0%, all post dilated with a 3.5 x 12 NC Balloon. Successful PTCA/SHASTA of the Proximal RCA with a 3.5 x 20 Promus Synergy; 75%-->0%, no dissection 11/2017. COPD (chronic obstructive pulmonary disease) (Chronic) SOB (shortness of breath) (Chronic) Chronic respiratory failure with hypoxia (Chronic) 2L NC baseline home usage. COPD exacerbation (Chronic) BPH (benign prostatic hypertrophy) (Chronic) Hypertension (Chronic) Anxiety disorder (Chronic) Hospital Course and Treatment Imaging Results: Case Management/Medical Device Notes Clinical Impression(s) from Imaging Studies Chest X-Ray 12/30/17 00:31 IMPRESSION: COPD without radiographic evidence of acute cardiopulmonary disease. Electronically Signed: Grace Gutierrez MD at 1:26 EDT , Service support , Chest X-Ray 12/30/17 05:55 IMPRESSION: 1. COPD. 2. Right basilar airspace consolidation and/or atelectasis.. Electronically Signed: Grace Gutierrez MD at 6:08 EDT , Service support , Chest X-Ray 12/31/17 05:55 IMPRESSION: No acute cardiopulmonary disease. COPD. Electronically Signed: Yusuf Ying MD at 7:27 EDT , Service support , Chest X-Ray 01/01/18 04:20 IMPRESSION: No acute cardiopulmonary disease. Electronically Signed: Yusuf Ying MD at 5:36 EDT , Service support , CCM: Drs. Shaffer and Yeison. Operations: None Procedures: None Summary of Care Provided: The patient is a 82 year old M presents with malaise and dyspnea. Initially felt to be severe sepsis due to pneumonia but later felt to be acute exacerbation of COPD. Patient did present with a lactic acid that was elevated at 6 but this part related with his respiratory distress. Patient was put on steroids and bronchodilators and overall improved. Patient and his family met with hospice and I given the patient's underlying chronic lung disease he would prefer to utilize hospice services at home. Plan is for the patient be discharged home with hospice services. Patient will also be on a prednisone taper which will be tapered down to his daily dose of 10 mg. [] Patient Problems: Active and Suspected Problems (Last Updated 12/30/17 @ 13:45 by Kalie Garsia) COPD exacerbation (Acute) - Physical Exam General: Alert, Cooperative, No apparent distress HEENT: Atraumatic, Normocephalic Oral: Moist Mucosa, No Gingival or Mucosal Lesions/ Ulcerations Lungs: No rhonchi, No wheeze, Diminished Cardiovascular: Regular rate, Regular Rhythm, Normal S1, Normal S2 Abdomen: Bowel Sounds Present, Soft, Non Tender, Non-Distended, No Hepato-splenomegaly Extremities: No edema, No Calf Tenderness Psych/Mental Status: Normal Affect, Appropriate Vital Signs Temp Pulse Resp BP Pulse Ox 36.6 C 80 16 165/86 H 97 01/02/18 08:13 01/02/18 10:55 01/02/18 10:47 01/02/18 08:13 01/02/18 08:13 Oxygen Flow Rate (L/min) 2 Oxygen Delivery Method Nasal Cannula Weight: 60.8 kg Body Mass Index (BMI) 25.1 Intake and Output for Last 24 Hours 12/31/17 01/01/18 01/02/18 23:59 23:59 23:59 Intake Total 3849 / 3849 1040 / 1040 660 / 660 Output Total 1075 / 1075 3090 / 3090 1350 / 1350 Balance 2774 / 2774 -2050 / -2050 -690 / -690 Microbiology Past 72 Hours 12/30/17 04:10 Respiratory Panel (PCR) - Final Mucosa - Nose Laboratory Tests Past 24 Hrs 01/02/18 01/02/18 05:54 05:54 WBC 11.5 H RBC 3.83 L Hgb 10.0 L Hct 33.2 L MCV 86.7 MCH 26.1 L MCHC 30.1 L RDW 14.9 H RDW Differential 47.1 H Plt Count 214 MPV 9.8 Immature Gran % (Auto) 0.800 Neut % (Auto) 89.0 H Lymph % (Auto) 4.8 L [place] % (Auto) 5.4 Eos % (Auto) 0.0 Baso % (Auto) 0.0 Absolute Neuts (auto) 10.3 H Absolute Lymphs (auto) 0.55 L Total Counted Not Reportable Differential Comment SCANNED Hypochromasia 1+ Anisocytosis 2+ Target Cells 1+ Sodium 141 Potassium 4.5 Chloride 105 Carbon Dioxide 27.0 Anion Gap 9 BUN 20 H Creatinine 1.18 Estim Creat Clear Calc 36.63 Est GFR (MDRD) Af Amer 76 Est GFR (MDRD) Non-Af 63 BUN/Creatinine Ratio 16.9 Glucose 242 H Calcium 8.7 POC Glucose 01/02/18 01/02/18 01/01/18 11:51 06:44 20:54 POC Glucose 181 H 216 H 172 H 01/01/18 15:58 POC Glucose 139 H Discharge Diet: No Restrictions Call your doctor if you observe: Shortness of breath Home Medications: Medications to take at Discharge Albuterol IH (ProAir) [Proair Hfa] 2 puff INHALATION Q4H PRN PRN 10/20/16 Aspirin [Aspirin EC] 81 mg PO DAILY 10/20/16 Dorzolamide HCl [Trusopt] 1 drp OP BID 10/20/16 Finasteride [Proscar] 5 mg PO DAILY 10/20/16 Latanoprost 1 drp OP QHS 10/20/16 Metoprolol Tartrate 25 mg PO BID 10/20/16 Montelukast [Singulair] 10 mg PO DAILY 10/20/16 Omeprazole 20 mg PO DAILY 10/20/16 Tamsulosin HCl [Flomax] 0.4 mg PO DAILY 10/20/16 Tiotropium [place] [Spiriva 18 MCG] 2 puff INHALATION DAILY 10/20/16 Venlafaxine HCl [Effexor Xr] 225 mg PO DAILY 10/20/16 busPIRone [Buspar] 5 mg PO TID 10/20/16 traZODone [Desyrel] 50 mg PO QHS 10/20/16 Cholecalciferol (VIT D3) [Vitamin D3] 4,000 unit PO DAILY 04/09/17 Docusate Sodium [Colace] 100 mg PO BID PRN 04/09/17 budesonide-formoterol HFA 160 mcg-4.5 mcg/actuation aerosol inhaler 2 puff INHALATION BID 07/27/17 Atorvastatin Calcium [Lipitor] 40 mg PO QHS #30 tab 11/09/17 Clopidogrel Bisulfate [Plavix] 75 mg PO DAILY #30 tab 11/09/17 Guaifenesin [Mucinex] 1,200 mg PO BID #20 tab 11/09/17 albuterol sulfate 2.5 mg/3 mL (0.083 %) solution for nebulization 2.5 mg INHALATION Q4H PRN #75 ml 12/04/17 HANDICAP PLACARD #1 ea 12/28/17 insulin glargine (U-100) 100 unit/mL (3 mL) subcutaneous pen 8 unit SC QHS ml 12/28/17 Mirtazapine [Remeron] 15 mg PO QHS 12/30/17 Prednisone 10 mg PO DAILY #0 01/02/18 Prednisone 10 mg PO DAILY #30 tablet 01/02/18 Following Prescrptions Were Given to Patient: Prednisone 10 mg PO DAILY #30 tablet [facility] [[facility]] - Within 2 Weeks Disposition: Home with Hospice Minutes spent on discharge:: 32 Patient Condition:: Stable Medical Necessity - Tobacco Use Smoking Status: Former smoker Tobacco Use: Non-smoker Meaningful Use Info Meaningful Use Diagnoses (Choose all that apply): None applicable Code Visit Inpatient E&M: 87946 Disch Hosp
--- NOTE | 2018-01-02 13:49 | DS.PCM_ITS ---
Discharge Date and Diagnosis - Problem List Patient Problems: Active and Suspected Problems (Last Updated 12/30/17 @ 13:45 by Kalie Garsia) COPD exacerbation (Acute) Date of Admission: 12/30/17 Date of Discharge: 01/02/18 - Primary Discharge Diagnosis Active and Suspected Problems (Last Updated 12/30/17 @ 13:45 by Kalie Garsia) COPD exacerbation (Acute) 1. COPD exacerbation, acute * Improving * Steroids being weaned today * Continue with bronchodilators * DC scheduled Xanax as that is a respiratory depressant * [facility] 2. Lactic acidosis * Likely secondary to COPD exacerbation * Not due to to severe sepsis as well as mentioned initially in the history and physical * Infectious workup, with a rotatory panel blood cultures, were negative. 3. Recent non-STEMI * Status post PCI to the mid RCA on November 07. * Continue with aspirin, high intensity statin, Plavix, metoprolol. * Follow-up with cardiology as outpatient 4. Diabetes mellitus type 2 * Fair control * Continue with Lantus and sliding scale insulin - Secondary Discharge Diagnosis Chronic Problems (Last Updated 12/30/17 @ 13:45 by Kalie Garsia) COPD (chronic obstructive pulmonary disease) (Chronic) Stage 4 very severe COPD by GOLD classification (Chronic) FEV1 45% Asthma, severe persistent (Chronic) NSTEMI (non-ST elevated myocardial infarction) (Chronic) Pure hypercholesterolemia (Chronic) S/P coronary artery stent placement (Chronic) Successful PTCA/SHASTA of the mid RCA with a 3.5 x 38 Promus Synergy, using double wire technique; 85%-->0%, all post dilated with a 3.5 x 12 NC Balloon. Successful PTCA/SHASTA of the Proximal RCA with a 3.5 x 20 Promus Synergy; 75%-->0%, no dissection 11/2017 CAD (coronary artery disease) (Chronic) Successful PTCA/SHASTA of the mid RCA with a 3.5 x 38 Promus Synergy, using double wire technique; 85%-->0%, all post dilated with a 3.5 x 12 NC Balloon. Successful PTCA/SHASTA of the Proximal RCA with a 3.5 x 20 Promus Synergy; 75%-->0%, no dissection 11/2017. COPD (chronic obstructive pulmonary disease) (Chronic) SOB (shortness of breath) (Chronic) Chronic respiratory failure with hypoxia (Chronic) 2L [place] baseline home usage. COPD exacerbation (Chronic) BPH (benign prostatic hypertrophy) (Chronic) Hypertension (Chronic) Anxiety disorder (Chronic) Hospital Course and Treatment Imaging Results: Case Management/Green House Manager Notes Clinical Impression(s) from Imaging Studies Chest X-Ray 12/30/17 00:31 IMPRESSION: COPD without radiographic evidence of acute cardiopulmonary disease. Electronically Signed: Grace Gutierrez MD at 1:26 EDT , Service support , Chest X-Ray 12/30/17 05:55 IMPRESSION: 1. COPD. 2. Right basilar airspace consolidation and/or atelectasis.. Electronically Signed: Grace Gutierrez MD at 6:08 EDT , Service support , Chest X-Ray 12/31/17 05:55 IMPRESSION: No acute cardiopulmonary disease. COPD. Electronically Signed: Yusuf Ying MD at 7:27 EDT , Service support , Chest X-Ray 01/01/18 04:20 IMPRESSION: No acute cardiopulmonary disease. Electronically Signed: Yusuf Ying MD at 5:36 EDT , Service support , CCM: Drs. Shaffer and Yeison. Operations: None Procedures: None Summary of Care Provided: The patient is a 82 year old M presents with malaise and dyspnea. Initially felt to be severe sepsis due to pneumonia but later felt to be acute exacerbation of COPD. Patient did present with a lactic acid that was elevated at 6 but this part related with his respiratory distress. Patient was put on steroids and bronchodilators and overall improved. Patient and his family met with hospice and I given the patient's underlying chronic lung disease he would prefer to utilize hospice services at home. Plan is for the patient be discharged home with hospice services. Patient will also be on a prednisone taper which will be tapered down to his daily dose of 10 mg. [] Patient Problems: Active and Suspected Problems (Last Updated 12/30/17 @ 13:45 by Kalie Garsia) COPD exacerbation (Acute) - Physical Exam General: Alert, Cooperative, No apparent distress HEENT: Atraumatic, Normocephalic Oral: Moist Mucosa, No Gingival or Mucosal Lesions/ Ulcerations Lungs: No rhonchi, No wheeze, Diminished Cardiovascular: Regular rate, Regular Rhythm, Normal S1, Normal S2 Abdomen: Bowel Sounds Present, Soft, Non Tender, Non-Distended, No Hepato- splenomegaly Extremities: No edema, No Calf Tenderness Psych/Mental Status: Normal Affect, Appropriate Vital Signs Temp Pulse Resp BP Pulse Ox 36.6 C 80 16 165/86 H 97 01/02/18 08:13 01/02/18 10:55 01/02/18 10:47 01/02/18 08:13 01/02/18 08:13 Oxygen Flow Rate (L/min) 2 Oxygen Delivery Method Nasal Cannula Weight: 60.8 kg Body Mass Index (BMI) 25.1 Intake and Output for Last 24 Hours 12/31/17 01/01/18 01/02/18 23:59 23:59 23:59 Intake Total 3849 / 3849 1040 / 1040 660 / 660 Output Total 1075 / 1075 3090 / 3090 1350 / 1350 Balance 2774 / 2774 -2050 / -2050 -690 / -690 Microbiology Past 72 Hours 12/30/17 04:10 Respiratory Panel (PCR) - Final Mucosa - Nose Laboratory Tests Past 24 Hrs 01/02/18 01/02/18 05:54 05:54 WBC 11.5 H RBC 3.83 L Hgb 10.0 L Hct 33.2 L MCV 86.7 MCH 26.1 L MCHC 30.1 L RDW 14.9 H RDW Differential 47.1 H Plt Count 214 MPV 9.8 Immature Gran % (Auto) 0.800 Neut % (Auto) 89.0 H Lymph % (Auto) 4.8 L [place] % (Auto) 5.4 Eos % (Auto) 0.0 Baso % (Auto) 0.0 Absolute Neuts (auto) 10.3 H Absolute Lymphs (auto) 0.55 L Total Counted Not Reportable Differential Comment SCANNED Hypochromasia 1+ Anisocytosis 2+ Target Cells 1+ Sodium 141 Potassium 4.5 Chloride 105 Carbon Dioxide 27.0 Anion Gap 9 BUN 20 H Creatinine 1.18 Estim Creat Clear Calc 36.63 Est GFR (MDRD) Af Amer 76 Est GFR (MDRD) Non-Af 63 BUN/Creatinine Ratio 16.9 Glucose 242 H Calcium 8.7 POC Glucose 01/02/18 01/02/18 01/01/18 11:51 06:44 20:54 POC Glucose 181 H 216 H 172 H 01/01/18 15:58 POC Glucose 139 H Discharge Diet: No Restrictions Call your doctor if you observe: Shortness of breath Home Medications: Medications to take at Discharge Albuterol IH (ProAir) [Proair Hfa] 2 puff INHALATION Q4H PRN PRN 10/20/16 Aspirin [Aspirin EC] 81 mg PO DAILY 10/20/16 Dorzolamide HCl [Trusopt] 1 drp OP BID 10/20/16 Finasteride [Proscar] 5 mg PO DAILY 10/20/16 Latanoprost 1 drp OP QHS 10/20/16 Metoprolol Tartrate 25 mg PO BID 10/20/16 Montelukast [Singulair] 10 mg PO DAILY 10/20/16 Omeprazole 20 mg PO DAILY 10/20/16 Tamsulosin HCl [Flomax] 0.4 mg PO DAILY 10/20/16 Tiotropium [place] [Spiriva 18 MCG] 2 puff INHALATION DAILY 10/20/16 Venlafaxine HCl [Effexor Xr] 225 mg PO DAILY 10/20/16 busPIRone [Buspar] 5 mg PO TID 10/20/16 traZODone [Desyrel] 50 mg PO QHS 10/20/16 Cholecalciferol (VIT D3) [Vitamin D3] 4,000 unit PO DAILY 04/09/17 Docusate Sodium [Colace] 100 mg PO BID PRN 04/09/17 budesonide-formoterol HFA 160 mcg-4.5 mcg/actuation aerosol inhaler 2 puff INHALATION BID 07/27/17 Atorvastatin Calcium [Lipitor] 40 mg PO QHS #30 tab 11/09/17 Clopidogrel Bisulfate [Plavix] 75 mg PO DAILY #30 tab 11/09/17 Guaifenesin [Mucinex] 1,200 mg PO BID #20 tab 11/09/17 albuterol sulfate 2.5 mg/3 mL (0.083 %) solution for nebulization 2.5 mg INHALATION Q4H PRN #75 ml 12/04/17 HANDICAP PLACARD #1 ea 12/28/17 insulin glargine (U-100) 100 unit/mL (3 mL) subcutaneous pen 8 unit SC QHS ml 12/28/17 Mirtazapine [Remeron] 15 mg PO QHS 12/30/17 Prednisone 10 mg PO DAILY #0 01/02/18 Prednisone 10 mg PO DAILY #30 tablet 01/02/18 Following Prescrptions Were Given to Patient: Prednisone 10 mg PO DAILY #30 tablet [facility] [[facility]] - Within 2 Weeks Disposition: Home with Hospice Minutes spent on discharge:: 32 Patient Condition:: Stable Medical Necessity - Tobacco Use Smoking Status: Former smoker Tobacco Use: Non-smoker Meaningful Use Info Meaningful Use Diagnoses (Choose all that apply): None applicable Code Visit Inpatient E&M: 57138 Disch Hosp
--- NOTE | 2018-01-02 14:11 | CASEMGMT ---
CHACHA faxed d/c instructions to Hospice. Zee MCFARLAND SUPPLY CHAIN DIRECTOR
--- NOTE | 2018-01-02 14:18 | NURSING ---
called and gave report to central office inspectorNikolas
--- NOTE | 2018-01-02 14:52 | CASEMGMT ---
CHACHA called Kristie with [facility] and left her a message letting her know that patient went home with Hospice. Zee MCFARLAND MSW
== END 2018-01-02 14:43 | disposition hospice, home (50) | DRG 189 ==
LOC: ED 01:48 → ICU 04:38 → PCU 01-01 15:27
PROVIDERS: Internal Medicine; Admitting Provider Family Medicine; Emergency Provider Emergency Medicine
DX: J96.21 Acute and chronic respiratory failure with hypoxia (principal); J44.1 Chronic obstructive pulmonary disease with (acute) exacerbation; E87.2 Acidosis; Z99.81 Dependence on supplemental oxygen; E11.22 Type 2 diabetes mellitus with diabetic chronic kidney disease; I12.9 Hypertensive chronic kidney disease with stage 1 through stage 4 chronic kidney disease, or unspecified chronic kidney disease; N18.3 Chronic kidney disease, stage 3 (moderate); J45.50 Severe persistent asthma, uncomplicated; E78.5 Hyperlipidemia, unspecified; N40.0 Benign prostatic hyperplasia without lower urinary tract symptoms; Z66 Do not resuscitate; Z87.891 Personal history of nicotine dependence; I25.2 Old myocardial infarction; Z79.4 Long term (current) use of insulin; Z95.5 Presence of coronary angioplasty implant and graft; I25.10 Atherosclerotic heart disease of native coronary artery without angina pectoris; G47.33 Obstructive sleep apnea (adult) (pediatric)
CPT/HCPCS: 36415; 36600; 71045; 80048; 80053; 82803; 82962; 83605; 83735; 83880; 84100; 84484; 85025; 87040; 87633; 87641; 93005; 94002; 94003; 94640; 97110; 97163; 97166; 97530; 99283; J7030; J7050; A4216